=== PATIENT | female | born 1980 ===

== ENCOUNTER 2018-06-20 16:49 | Inpatient (IN) | payer MEDICAID ==
[2018-06-20 16:49] VITALS: BMI 34.0
[2018-06-20] MEDS ORDERED: Sodium Chloride 0.9% 1,000 ML IV STA (17:44)
[2018-06-20 18:11] LABS: BASO # 0.1 K/uL (0.0-0.2); BASO % 0.4 % (0.0-2.0); EOS # 0.3 K/uL (0.0-0.7); EOS % 1.5 % (0.0-4.0); MEAN CORPUSCULAR HEMOGLOBIN 36.2 pg (27.0-31.0); MEAN CORPUSCULAR HGB CONC 30.9 g/dL (33.0-37.0); MONO # 0.9 K/uL (0.0-0.8); MONO % 5.4 % (0.0-10.0); NEUT # 12.5 K/uL (1.8-7.0); NEUT % 74.7 % (50.0-75.0); NRBC % 1.7 % (0.0-0.0); RBC 1.33 Mil/uL (3.80-5.20); RED CELL DISTRIBUTION WIDTH 30.4 % (11.5-14.5); WHITE BLOOD COUNT 16.8 K/uL (4.8-10.8)
[2018-06-20 18:16] LABS: HEMOGLOBIN 4.8 g/dL (12.0-16.0)
[2018-06-20 18:22] LABS: INR 1.2; PROTHROMBIN TIME 13.6 Seconds (9.8-13.1)
[2018-06-20 18:25] LABS: PARTIAL THROMBOPLASTIN TIME 25.9 Seconds (25.6-37.1)
[2018-06-20 18:26] LABS: ALBUMIN 4.1 g/dL (3.5-5.0); ALT/SGPT 52 U/L (9-52); AST/SGOT 43 U/L (14-36); BLOOD UREA NITROGEN 9 mg/dl (7-17); CALCIUM 8.6 mg/dL (8.4-10.2); GFR NON-AFRICAN AMERICAN > 60
[2018-06-20] MEDS ORDERED: MethylPREDNISolone 40 mg Vial ONE (18:33)
--- NOTE | 2018-06-20 19:29 | ED PDOC ---
HPI: General Adult Time Seen by Provider: 06/20/18 17:43 Chief Complaint (Nursing): Abnormal Labs Chief Complaint (Provider): sent from PMD History Per: Patient History/Exam Limitations: no limitations Recently: Treated By A Physician Additional Complaint(s): 37yo female presents from PMD found have profound anemia outpatient. States having weakness and exertional dyspnea for several weeks, had menses about 3 weeks ago, last approx one week, denies melena, blood per rectum or vomiting. Has hx blood disorder, doesnt remember name, but required splenectomy in 2013, sees Dr Lisa Queen and Dr Sigala. Past Medical History Reviewed: Historical Data, Nursing Documentation, Vital Signs Vital Signs: Last Vital Signs Temp 98.4 F 06/20/18 17:06 Pulse 112 H 06/20/18 17:06 Resp 16 06/20/18 17:06 BP 94/59 L 06/20/18 17:06 Pulse Ox 100 06/20/18 17:06 - Medical History PMH: Asthma, Hyperthyroidism Denies: Alzheimer's Disease, Anemia, Anxiety, Arthritis, Atrial Fibrillation, Bipolar Disorder, Bronchitis, CAD, Cardia Arrhythmia, CHF, COPD, Crohn's Disease, Dementia, Depression, Diverticulitis, Emphysema, Fractures, Gastritis, Gall Bladder Disease, HIV, HTN, Hypercholesterolemia, Hypothyroidism, Kidney Stones, Migraine, Mitral Valve Prolapse, Multiple Sclerosis, Osteoporosis, Pancreatitis, Paranoia, Parkinson's Disease, Peripheral Edema, Pneumonia, Post Traumatic Stress Disorder, Pulmonary Embolism, Chronic Kidney Disease, Rheumatoid Arthritis, Schizophrenia, Seizures, Sickle Cell Disease, Sexually Transmitted Disease, Sleep Apnea, TIA - Surgical History Surgical History: Denies: Appendectomy, CABG, Carotid Endarterectomy, Cholecystectomy, Coronary Stent, Pacemaker, Tonsillectomy - Family History Family History: States: Diabetes, Hypertension - Immunization History Hx Tetanus Toxoid Vaccination: No - Home Medications Home Medications: Ambulatory Orders Medication Instructions Recorded Gabapentin [Neurontin] 600 mg PO HS 06/20/18 Naproxen [Naprosyn] 500 mg PO DAILY 06/20/18 methIMAzole [Tapazole] 10 mg PO DAILY 06/20/18 - Allergies Allergies/Adverse Reactions: Allergies Allergy/AdvReac Type Severity Reaction Status Date / Time iodine Allergy SHORTNESS Verified 06/20/18 17:06 OF BREATH pneumococcal vaccine Allergy RASH Verified 06/20/18 17:06 Review of Systems ROS Statement: Except As Marked, All Systems Reviewed And Found Negative Constitutional: Negative for: Fever ENT: Negative for: Nose Discharge Cardiovascular: Positive for: Palpitations, Light Headedness. Negative for: Chest Pain Respiratory: Positive for: Shortness of Breath, SOB with Exertion. Negative for: Cough Gastrointestinal: Negative for: Abdominal Pain, Diarrhea, Hematochezia, Hematemesis Genitourinary Female: Positive for: Vaginal Bleeding. Negative for: Dysuria Musculoskeletal: Negative for: Neck Pain, Back Pain Neurological: Positive for: Headache, Dizziness. Negative for: Weakness, Numbness, Altered Mental Status Psych: Negative for: Anxiety Physical Exam - Reviewed Nursing Documentation Reviewed: Yes Vital Signs Reviewed: Yes - Physical Exam Appears: Positive for: Well, Non-toxic, No Acute Distress Head Exam: Positive for: ATRAUMATIC, NORMAL INSPECTION, NORMOCEPHALIC Skin: Positive for: Normal Color, Warm, Jaundice Eye Exam: Positive for: EOMI, PERRL, Scleral icterus ENT: Positive for: Normal ENT Inspection Neck: Positive for: Normal, Painless ROM Cardiovascular/Chest: Positive for: Tachycardia. Negative for: Irregularly Irregular Respiratory: Positive for: Normal Breath Sounds. Negative for: Decreased Breath Sounds Pulses-Radial (L): 2+ Pulses-Radial (R): 2+ Gastrointestinal/Abdominal: Positive for: Soft. Negative for: Tenderness Back: Positive for: Normal Inspection Extremity: Positive for: Normal ROM Neurologic/Psych: Positive for: Alert, Oriented. Negative for: Motor/Sensory Deficits - Laboratory Results Result Diagrams: 06/21/18 04:30 06/21/18 04:30 Urine POC: Negative Urine dip results: Negative for: Blood - ECG ECG: Positive for: Interpreted By Me ECG Rhythm: Positive for: Sinus Tachycardia O2 Sat by Pulse Oximetry: 100 Pulse Ox Interpretation: Normal - Critical Care Total Time (In Min): 45 Medical Decision Making Medical Decision Making: labs reviewed c/w significant hemolytic anemia and thrombocytopenia, hgb 4.8 w Plt 45, elev TBili 9.0, renal function normal, hematology Dr Lisa sommers, case discussed and she recommended solumedrol, tylenol and transfusion PRBC tonight. Admit C Puja covering Dr Callahan, mental status normal, BP adequate, mild resting tachycardia stable for tele at this time. Additional studies added on-retic count, LDH, haptoglobin, iron studies. Patient consented for PRBC transfusion, states has had prior transfusion and is aware of risks and benefits. Disposition - Clinical Impression Clinical Impression: Hemolytic anemia, Thrombocytopenia - Patient ED Disposition Is Patient to be Admitted: No Counseled Patient/Family Regarding: Studies Performed, Diagnosis - Disposition Disposition Time: 18:15 Condition: GUARDED - Pt Status Changed To: Hospital Disposition Of: Inpatient - Admit Certification Admit to Inpatient:: After my assessment, the patient will require hospitalization for at least two midnights. This is because of the severity of symptoms shown, intensity of services needed, and/or the medical risk in this patient being treated as an outpatient. - POA Present On Arrival: None
[2018-06-20 19:38] LABS: T4 10.1 ug/dl (5.5-11.0)
[2018-06-20 19:52] LABS: T3 1.11 nmol/L (1.49-2.60)
[2018-06-20] MEDS ORDERED: DiphenhydrAMINE 50 mg/ml Inj IVP STA (22:25)
[2018-06-20] MEDS ORDERED: Hydrocortisone- 100 MG in Sodium Chloride 0.9% 100 ML IV SCH (22:45)
[2018-06-21 05:29] LABS: BASO % 0.3 % (0.0-2.0); EOS % 0.1 % (0.0-4.0); LYMPH # 1.9 K/uL (1.0-4.3); LYMPH % 10.6 % (20.0-40.0); MEAN CORPUSCULAR HEMOGLOBIN 36.8 pg (27.0-31.0); MEAN CORPUSCULAR HGB CONC 31.2 g/dL (33.0-37.0); MEAN PLATELET VOLUME 15.1 fl (7.2-11.7); MONO # 0.6 K/uL (0.0-0.8); MONO % 3.3 % (0.0-10.0); NEUT # 15.1 K/uL (1.8-7.0); NEUT % 85.7 % (50.0-75.0); NRBC % 1.2 % (0.0-0.0); RBC 1.24 Mil/uL (3.80-5.20); RED CELL DISTRIBUTION WIDTH 31.3 % (11.5-14.5); WHITE BLOOD COUNT 17.6 K/uL (4.8-10.8)
[2018-06-21 05:40] LABS: HEMOGLOBIN 4.6 g/dL (12.0-16.0)
[2018-06-21 05:45] LABS: ALBUMIN 3.8 g/dL (3.5-5.0); ALT/SGPT 42 U/L (9-52); AST/SGOT 36 U/L (14-36); BLOOD UREA NITROGEN 10 mg/dl (7-17); CALCIUM 8.6 mg/dL (8.4-10.2); GFR NON-AFRICAN AMERICAN > 60; HDL CHOLESTEROL 40 MG/DL (30-70)
[2018-06-21 05:56] LABS: LDL CHOLESTEROL 67 mg/dL (0-129)
[2018-06-21 06:01] LABS: T4 9.63 ug/dl (5.5-11.0)
--- NOTE | 2018-06-21 06:13 | CON ---
DATE: 06/21/2018 HISTORY OF PRESENT ILLNESS: This is a 37-year-old female very well known to us with Graves' disease with hyperthyroidism and has been euthyroid, on medical therapy and presents to her primary physician's office with generalized body weakness and increasing bouts of shortness of breath on exertion and was found to have profound anemia and admitted thereof for further workup and management. PAST MEDICAL HISTORY: History of Graves' disease with hyperthyroidism, but that has been controlled optimally on medical therapy with Tapazole given as 10 mg b.i.d. as ordered, history of bronchial asthma, significant history of idiopathic thrombocytopenic purpura or ITP in 2013 and underwent a splenectomy at that time and has been followed since then by Dr. Scottie Queen. FAMILY HISTORY: Positive for hypertension and heart disease. No known thyroid dysfunction. SOCIAL HISTORY: The patient has supportive family. No known substance use. REVIEW OF SYSTEMS: Admits to progressive bouts of dizziness and lightheadedness, worse on the day of admission with generalized body weakness and suboptimal energy level. Also admits to bifrontal headaches, but no visual changes otherwise. No chest pain, but admits to progressive shortness of breath initially on exertion and then at rest. Also admits to episodic nausea, dyspepsia and vague upper abdominal pain. No recent alterations of bowel and urinary patterns. No melena or hematochezia is noted. Her menstrual cycles have been extremely heavy with menorrhagia lasting a week to 10 days every cycle as noted. PHYSICAL EXAMINATION: GENERAL: This is an overweight female in no apparent distress. VITAL SIGNS: Blood pressure of 100/70, pulse of 110 beats per minute regular, temperature 98, respirations 20, height is 5 feet 6 inches, weight is 214 pounds. HEENT: Head normocephalic. Eyes icteric with pale conjunctivae. Funduscopy is not possible at this time. Ears, nose and throat otherwise normal. NECK: Supple. Moderate nodular thyromegaly which is firm and nontender with no thyroid bruits or any cervical adenopathy noted. CARDIOPULMONARY: Some adynamic precordium. S1, S2 is rapid and regular. LUNGS: Clear to auscultation. ABDOMEN: Obese, soft with positive bowel sounds. EXTREMITIES: No peripheral edema. Pulses are +2 bilaterally. LABORATORY DATA: WBC 16.8, hemoglobin 4.8 g, hematocrit 15, MCV 117, platelets 45,000 and a repeat count is 23.3. Chemistry showed a BUN of 9, sodium 136, potassium 3.7, chloride 106, CO2 of 21, glucose 100 and creatinine 0.5. Her LDH is 1238. Thyroxine level is 10.1 with a total T3 of 1.11 and a TSH of 0.45. ASSESSMENT: This is a 37-year-old female with Graves' disease with underlying toxic multinodular goiter, but has been euthyroid both clinically and biochemically, on the outpatient, on Tapazole medications as given and now presents here with marked anemia and significant menorrhagia on the background of a previous idiopathic thrombocytopenic purpura and splenectomy as noted thereof. However biochemically her thyroid indices at this time show the presence of subclinical hyperthyroidism as noted thereof. PLAN OF MANAGEMENT: We will titrate and increase her medical therapy with thiourea with Tapazole to be given at a higher dose of 10 mg b.i.d. as ordered. We will obtain a thyroid stimulating immunoglobulin and thyroid peroxidase antibody to confirm and/or indicate the presence of underlying thyroid autoimmunity. We will obtain serial chemistries and supplement accordingly as needed. We will concur with the hematology evaluation as ordered. We will also obtain a thyroid ultrasound to confirm the thyroid lobe dimensions as noted. We will follow up. Taisha Sigala MD
[2018-06-21] MEDS: Naproxen 500 MG TAB PO SCH (10:41)
--- NOTE | 2018-06-21 10:45 | CP.PCM.CON ---
History of Present Illness - History of Present Illness History of Present Illness: This is a very pleasant young lady who is known to me. I first saw her in 2013 when she was admitted for severe thrombocytopenia. I did a bone marrow test and the only finding was a large number of megakaryocytes. She was started on pr ednisone without response, then IVGG withpout a response, then rituxan without a response. She underwent a embolisbation of the splenic vein since the splenectomy was too risky. Her pletelet count stopped dropping, but did not go up. She was given 2 dosed of Nplate and her platelets increased to 236K . she was discharged and was supposed to see me in the office but did not come. According to her her cbc was normal after that, @-3 weeks ago she was in my office because her primary physician had found her to have a high ferritin.I had sent her for tests but she had a very period,which lasted for about 7-8 days and when the doctor saw her in the office thehgb was only 6.8gms. She was sent to the ER where her hgb was only 4.8gms. Her retic count is 23%, ferritin is normal, ldh is markedly raised. A haptoglobin was sent, but result not available yet. Now that her period is over the bleeding has stopped. No ecchymosis or petechii. PH; hyperthyroidism for which she is on methimazol. gabapentin and naproxane for knee pains. Past Patient History - Past Medical History & Family History Past Medical History?: Yes - Past Social History Smoking Status: Former Smoker - CARDIAC Hx Atrial Fibrillation: No Hx Cardia Arrhythmia: No Hx Congestive Heart Failure: No Hx Hypercholesterolemia: No Hx Hypertension: No Hx Mitral Valve Prolapse: No Hx Pacemaker: No Hx Peripheral Edema: No - PULMONARY Hx Asthma: Yes Hx Bronchitis: No Hx Chronic Obstructive Pulmonary Disease (COPD): No Hx Emphysema: No Hx Pneumonia: No Hx Pulmonary Embolism: No Hx Sleep Apnea: No - NEUROLOGICAL Hx Alzheimer's Disease: No Hx Dementia: No Hx Migraine: No Hx Multiple Sclerosis: No Hx Parkinson's Disease: No Hx Seizures: No Hx Transient Ischemic Attacks (TIA): No - HEENT Hx HEENT Problems: No - RENAL Hx Chronic Kidney Disease: No Hx Kidney Stones: No - ENDOCRINE/METABOLIC Hx Hyperthyroidism: Yes Hx Hypothyroidism: No - HEMATOLOGICAL/ONCOLOGICAL Hx Anemia: No Hx Human Immunodeficiency Virus (HIV): No Hx Sickle Cell Disease: No - INTEGUMENTARY Hx Dermatological Problems: No - MUSCULOSKELETAL/RHEUMATOLOGICAL Hx Arthritis: No Hx Fractures: No Hx Osteoporosis: No Hx Rheumatoid Arthritis: No - GASTROINTESTINAL Hx Crohn's Disease: No Hx Diverticulitis: No Hx Gall Bladder Disease: No Hx Gastritis: No Hx Pancreatitis: No - GENITOURINARY/GYNECOLOGICAL Hx Sexually Transmitted Disorders: No - PSYCHIATRIC Hx Anxiety: No Hx Bipolar Disorder: No Hx Depression: No Hx Paranoia: No Hx Post Traumatic Stress Disorder: No Hx Schizophrenia: No - SURGICAL HISTORY Hx Appendectomy: No Hx Carotid Endarterectomy: No Hx Cholecystectomy: No Hx Coronary Artery Bypass Graft: No Hx Coronary Stent: No Hx Tonsillectomy: No - ANESTHESIA Hx Anesthesia: No Hx Anesthesia Reactions: No Hx Malignant Hyperthermia: No Meds Allergies/Adverse Reactions: Allergies Allergy/AdvReac Type Severity Reaction Status Date / Time iodine Allergy SHORTNESS Verified 06/20/18 17:06 OF BREATH pneumococcal vaccine Allergy RASH Verified 06/20/18 17:06 - Medications Medications: Current Medications Gabapentin (Neurontin) 600 mg PO [facility] Last Admin: 06/20/18 23:57 Dose: 600 mg Hydrocortisone Sodium Succinate (Solu-Cortef) 100 mg IV Q6H [facility] Last Admin: 06/21/18 05:04 Dose: 100 mg Methimazole (Tapazole) 10 mg PO BID [facility] Last Admin: 06/21/18 08:54 Dose: 10 mg Naproxen (Naproxen) 500 mg PO DAILY [facility] Physical Exam - Additional Findings Additional findings: Physical exam; Alert,well oriented in no acute distress neck; supple, no adenopathy Chest; Clear,no rales or rhonchi heart; RSR,no murmur Abdomen; Soft,no mass no hepatomegaly Results - Vital Signs Recent Vital Signs: Last Vital Signs Temp 98.2 F 06/21/18 09:00 Pulse 103 H 06/21/18 09:00 Resp 18 06/21/18 09:00 BP 100/67 06/21/18 09:00 Pulse Ox 100 06/21/18 10:21 - Labs Result Diagrams: 06/21/18 04:30 06/21/18 04:30 Labs: Laboratory Results - last 24 hr 06/20/18 06/20/18 06/20/18 18:00 18:00 18:00 WBC 16.8 H RBC 1.33 L Hgb 4.8 L* Hct 15.6 L MCV 117.0 H MCH 36.2 H MCHC 30.9 L RDW 30.4 H Plt Count 45 L MPV 15.0 H Neut % (Auto) 74.7 Lymph % (Auto) 18.0 L [place] % (Auto) 5.4 Eos % (Auto) 1.5 Baso % (Auto) 0.4 Neut # (Auto) 12.5 H Lymph # (Auto) 3.0 [place] # (Auto) 0.9 H Eos # (Auto) 0.3 Baso # (Auto) 0.1 Retic Count PT INR APTT Sodium 136 Potassium 3.7 Chloride 106 Carbon Dioxide 21 L Anion Gap 13 BUN 9 Creatinine 0.5 L Est GFR ( Amer) > 60 Est GFR (Non-Af Amer) > 60 Random Glucose 100 Calcium 8.6 Ferritin Total Bilirubin 9.0 H AST 43 H ALT 52 D Alkaline Phosphatase 70 Lactate Dehydrogenase Total Protein 8.1 Albumin 4.1 Globulin 4.0 H Albumin/Globulin Ratio 1.0 Triglycerides Cholesterol LDL Cholesterol Direct HDL Cholesterol Free T4 Thyroxine (T4) Total T3 TSH 3rd Generation Blood Type A POSITIVE Antibody Screen Positive PEDRITO, Poly Interpret Positive H Crossmatch See Detail BBK History Checked Patient has bt 06/20/18 06/20/18 06/20/18 18:00 19:00 19:00 WBC RBC Hgb Hct MCV MCH MCHC RDW Plt Count MPV Neut % (Auto) Lymph % (Auto) [place] % (Auto) Eos % (Auto) Baso % (Auto) Neut # (Auto) Lymph # (Auto) [place] # (Auto) Eos # (Auto) Baso # (Auto) Retic Count 23.3 H PT 13.6 H INR 1.2 APTT 25.9 Sodium Potassium Chloride Carbon Dioxide Anion Gap BUN Creatinine Est GFR ( Amer) Est GFR (Non-Af Amer) Random Glucose Calcium Ferritin 429.0 H Total Bilirubin AST ALT Alkaline Phosphatase Lactate Dehydrogenase 1238 H Total Protein Albumin Globulin Albumin/Globulin Ratio Triglycerides Cholesterol LDL Cholesterol Direct HDL Cholesterol Free T4 Thyroxine (T4) 10.1 Total T3 1.11 L TSH 3rd Generation 0.45 L Blood Type Antibody Screen PEDRITO, Poly Interpret Crossmatch BBK History Checked 06/21/18 06/21/1806/21/18 04:30 04:30 04:30 WBC 17.6 H RBC 1.24 L Hgb 4.6 L* Hct 14.7 L MCV 118.0 H MCH 36.8 H MCHC 31.2 L RDW 31.3 H Plt Count 43 L MPV 15.1 H Neut % (Auto) 85.7 H Lymph % (Auto) 10.6 L [place] % (Auto) 3.3 Eos % (Auto) 0.1 Baso % (Auto) 0.3 Neut # (Auto) 15.1 H Lymph # (Auto) 1.9 [place] # (Auto) 0.6 Eos # (Auto) 0.0 Baso # (Auto) 0.0 Retic Count PT INR APTT Sodium 140 Potassium 4.0 Chloride 109 H Carbon Dioxide 23 Anion Gap 12 BUN 10 Creatinine 0.5 L Est GFR ( Amer) > 60 Est GFR (Non-Af Amer) > 60 Random Glucose 141 H Calcium 8.6 Ferritin Total Bilirubin 5.1 H AST 36 ALT 42 Alkaline Phosphatase 63 Lactate Dehydrogenase Total Protein 7.6 Albumin 3.8 Globulin 3.8 Albumin/Globulin Ratio 1.0 Triglycerides 78 Cholesterol 140 LDL Cholesterol Direct 67 HDL Cholesterol 40 Free T4 1.35 Thyroxine (T4) 9.63 Total T3 TSH 3rd Generation 0.14 L Blood Type Antibody Screen PEDRITO, Poly Interpret Crossmatch BBK History Checked Assessment & Plan - Assessment and Plan (Free Text) Assessment: impression: Immune thrombocytopenia and hemolytic anemia Plan: Plan; There was no blood available that did not have antibodies against her RBC s, .Have started her on hydrocortisone q 6hrs and hopefully it will hold her until blood is available. - Date & Time Date: 06/21/18 Time: 11:00
[2018-06-21 18:07] LABS: BASO % 0.2 % (0.0-2.0); EOS % 0.1 % (0.0-4.0); MEAN CORPUSCULAR HEMOGLOBIN 36.2 pg (27.0-31.0); MEAN CORPUSCULAR HGB CONC 29.9 g/dL (33.0-37.0); MEAN PLATELET VOLUME 15.2 fl (7.2-11.7); MONO # 0.9 K/uL (0.0-0.8); MONO % 3.7 % (0.0-10.0); NEUT # 19.3 K/uL (1.8-7.0); NRBC % 0.2 % (0.0-0.0); RBC 1.24 Mil/uL (3.80-5.20); RED CELL DISTRIBUTION WIDTH 32.9 % (11.5-14.5)
[2018-06-21 18:14] LABS: HEMOGLOBIN 4.5 g/dL (12.0-16.0)
[2018-06-21 18:16] LABS: WHITE BLOOD COUNT 23.2 K/uL (4.8-10.8)
--- NOTE | 2018-06-21 18:26 | PN ---
DATE: 06/21/2018 ENDOCRINOLOGY FOLLOWUP NOTE LOCATION: In room 408. SUBJECTIVE: This is a 37-year-old female presenting with marked anemia and associated constitutional symptoms of generalized body weakness, fatigue, and supervening shortness of breath, and was found to have a hemoglobin initially of 4 g as noted. She has since then received packed red cell transfusions as given. She also remains clinically and biochemically slightly hyperthyroxinemic at this time. LABORATORY DATA: Her latest chemistry showed a BUN of 10, sodium 140, potassium 4, chloride 109, CO2 of 23, glucose 141, and creatinine 0.5. Her thyroid studies showed a T4 of 9.63 with a TSH of 0.14 and a free T4 of 1.35. ASSESSMENT: This is a 37-year-old female with subclinical hyperthyroidism with known history of autoimmune thyroiditis, previously on medical therapy for hyperthyroidism, but has remained clinically and biochemically euthyroid on the outpatient on the aforementioned therapy. However, with the intercurrent stressors at this time with marked anemia, would expect a temporary biochemical relapse of the thyroid condition as noted. PLAN OF MANAGEMENT: We will modify and titrate her Tapazole to 10 mg p.o. b.i.d. after meals to start today as ordered. We will obtain serial chemistries and supplement accordingly as needed. We will obtain serial thyroid studies and adjust her dose regimen accordingly. We will obtain a thyroid stimulating immunoglobulin and thyroid peroxidase antibody, which will confirm and/or indicate the presence of underlying thyroid autoimmunity. We will follow. Taisha Sigala MD
--- NOTE | 2018-06-21 19:46 | CP.PCM.HP ---
History of Present Illness - History of Present Illness History of Present Illness: pt admitted for hemolytic anemia and itp. has h/o same. v harrison is pts heme/onc. all bw and consullts appriciated dr chou on case fo elev cortisol, hyperthyroidism. pt has yet to receive blood transfusion as per blood bank pt has coating and positive antibodies to rbc. wiating for [facility] in [place], [place] to further analyze Present on Admission - Present on Admission Any Indicators Present on Admission: No Review of Systems - Constitutional Constitutional: As Per HPI, Fatigue - Integumentary Integumentary: As Per HPI Additional comments: pallor Past Patient History - Past Medical History & Family History Past Medical History?: Yes - Past Social History Smoking Status: Former Smoker - CARDIAC Hx Atrial Fibrillation: No Hx Cardia Arrhythmia: No Hx Congestive Heart Failure: No Hx Hypercholesterolemia: No Hx Hypertension: No Hx Mitral Valve Prolapse: No Hx Pacemaker: No Hx Peripheral Edema: No - PULMONARY Hx Asthma: Yes Hx Bronchitis: No Hx Chronic Obstructive Pulmonary Disease (COPD): No Hx Emphysema: No Hx Pneumonia: No Hx Pulmonary Embolism: No Hx Sleep Apnea: No - NEUROLOGICAL Hx Alzheimer's Disease: No Hx Dementia: No Hx Migraine: No Hx Multiple Sclerosis: No Hx Parkinson's Disease: No Hx Seizures: No Hx Transient Ischemic Attacks (TIA): No - HEENT Hx HEENT Problems: No - RENAL Hx Chronic Kidney Disease: No Hx Kidney Stones: No - ENDOCRINE/METABOLIC Hx Hyperthyroidism: Yes Hx Hypothyroidism: No - HEMATOLOGICAL/ONCOLOGICAL Hx Anemia: No Hx Human Immunodeficiency Virus (HIV): No Hx Sickle Cell Disease: No - INTEGUMENTARY Hx Dermatological Problems: No - MUSCULOSKELETAL/RHEUMATOLOGICAL Hx Arthritis: No Hx Fractures: No Hx Osteoporosis: No Hx Rheumatoid Arthritis: No - GASTROINTESTINAL Hx Crohn's Disease: No Hx Diverticulitis: No Hx Gall Bladder Disease: No Hx Gastritis: No Hx Pancreatitis: No - GENITOURINARY/GYNECOLOGICAL Hx Sexually Transmitted Disorders: No - PSYCHIATRIC Hx Anxiety: No Hx Bipolar Disorder: No Hx Depression: No Hx Paranoia: No Hx Post Traumatic Stress Disorder: No Hx Schizophrenia: No - SURGICAL HISTORY Hx Appendectomy: No Hx Carotid Endarterectomy: No Hx Cholecystectomy: No Hx Coronary Artery Bypass Graft: No Hx Coronary Stent: No Hx Tonsillectomy: No - ANESTHESIA Hx Anesthesia: No Hx Anesthesia Reactions: No Hx Malignant Hyperthermia: No Meds Allergies/Adverse Reactions: Allergies Allergy/AdvReac Type Severity Reaction Status Date / Time iodine Allergy SHORTNESS Verified 06/20/18 17:06 OF BREATH pneumococcal vaccine Allergy RASH Verified 06/20/18 17:06 Physical Exam - Constitutional Appears: Well, Non-toxic, No Acute Distress Additional comments: pale - Head Exam Head Exam: ATRAUMATIC, NORMAL INSPECTION, NORMOCEPHALIC - Eye Exam Eye Exam: EOMI, Normal appearance, PERRL Pupil Exam: NORMAL ACCOMODATION, PERRL - ENT Exam ENT Exam: Mucous Membranes Moist, Normal Exam - Neck Exam Neck exam: Positive for: Normal Inspection - Respiratory Exam Respiratory Exam: Clear to Auscultation Bilateral, NORMAL BREATHING PATTERN - Cardiovascular Exam Cardiovascular Exam: REGULAR RHYTHM, RRR, +S1, +S2 - GI/Abdominal Exam GI & Abdominal Exam: Normal Bowel Sounds, Soft. absent: Tenderness - Extremities Exam Extremities exam: Positive for: full ROM, normal capillary refill, normal inspection, pedal pulses present - Back Exam Back exam: NORMAL INSPECTION - Neurological Exam Neurological exam: Alert, CN II-XII Intact, Normal Gait, Oriented x3, Reflexes Normal - Psychiatric Exam Psychiatric exam: Normal Affect, Normal Mood - Skin Skin Exam: Dry, Intact, Normal Color, Pallor, Warm Results - Vital Signs Recent Vital Signs: Last Vital Signs Temp 98.6 F 06/21/18 17:00 Pulse 109 H 06/21/18 17:00 Resp 16 06/21/18 17:00 BP 95/61 L 06/21/18 17:00 Pulse Ox 96 06/21/18 17:00 - Labs Result Diagrams: 06/21/18 17:55 06/21/18 04:30 Labs: Laboratory Results - last 24 hr 06/20/18 06/20/18 06/20/18 18:00 19:00 19:00 WBC RBC Hgb Hct MCV MCH MCHC RDW Plt Count MPV Neut % (Auto) Lymph % (Auto) [place] % (Auto) Eos % (Auto) Baso % (Auto) Neut # (Auto) Lymph # (Auto) [place] # (Auto) Eos # (Auto) Baso # (Auto) Haptoglobin < 20.0 L Sodium Potassium Chloride Carbon Dioxide Anion Gap BUN Creatinine Est GFR ( Amer) Est GFR (Non-Af Amer) Random Glucose Calcium Ferritin 429.0 H Total Bilirubin AST ALT Alkaline Phosphatase Total Protein Albumin Globulin Albumin/Globulin Ratio Triglycerides Cholesterol LDL Cholesterol Direct HDL Cholesterol Free T4 Thyroxine (T4) Total T3 1.11 L TSH 3rd Generation 0.45 L Cortisol AM Sample Blood Type A POSITIVE Antibody Screen Positive PEDRITO, Poly Interpret Positive H Crossmatch See Detail BBK History Checked Patient has bt 06/21/18 06/21/18 06/21/18 04:30 04:30 04:30 WBC 17.6 H RBC 1.24 L Hgb 4.6 L* Hct 14.7 L MCV 118.0 H MCH 36.8 H MCHC 31.2 L RDW 31.3 H Plt Count 43 L MPV 15.1 H Neut % (Auto) 85.7 H Lymph % (Auto) 10.6 L [place] % (Auto) 3.3 Eos % (Auto) 0.1 Baso % (Auto) 0.3 Neut # (Auto) 15.1 H Lymph # (Auto) 1.9 [place] # (Auto) 0.6 Eos # (Auto) 0.0 Baso # (Auto) 0.0 Haptoglobin Sodium 140 Potassium 4.0 Chloride 109 H Carbon Dioxide 23 Anion Gap 12 BUN 10 Creatinine 0.5 L Est GFR ( Amer) > 60 Est GFR (Non-Af Amer) > 60 Random Glucose 141 H Calcium 8.6 Ferritin Total Bilirubin 5.1 H AST 36 ALT 42 Alkaline Phosphatase 63 Total Protein 7.6 Albumin 3.8 Globulin 3.8 Albumin/Globulin Ratio 1.0 Triglycerides 78 Cholesterol 140 LDL Cholesterol Direct 67 HDL Cholesterol 40 Free T4 Thyroxine (T4) 9.63 Total T3 TSH 3rd Generation 0.14 L Cortisol AM Sample 27.5 H Blood Type Antibody Screen PEDRITO, Poly Interpret Crossmatch BBK History Checked 06/21/18 06/21/18 04:30 17:55 WBC 23.2 H RBC 1.24 L Hgb 4.5 L* Hct 15.0 L MCV 121.0 H D MCH 36.2 H MCHC 29.9 L RDW 32.9 H Plt Count 52 L MPV 15.2 H Neut % (Auto) 83.0 H Lymph % (Auto) 13.0 L [place] % (Auto) 3.7 Eos % (Auto) 0.1 Baso % (Auto) 0.2 Neut # (Auto) 19.3 H Lymph # (Auto) 3.0 [place] # (Auto) 0.9 H Eos # (Auto) 0.0 Baso # (Auto) 0.0 Haptoglobin Sodium Potassium Chloride Carbon Dioxide Anion Gap BUN Creatinine Est GFR ( Amer) Est GFR (Non-Af Amer) Random Glucose Calcium Ferritin Total Bilirubin AST ALT Alkaline Phosphatase Total Protein Albumin Globulin Albumin/Globulin Ratio Triglycerides Cholesterol LDL Cholesterol Direct HDL Cholesterol Free T4 1.35 Thyroxine (T4) Total T3 TSH 3rd Generation Cortisol AM Sample Blood Type Antibody Screen PEDRITO, Poly Interpret Crossmatch BBK History Checked Assessment & Plan (1) DVT prophylaxis Assessment and Plan: scd and aehose hold anticoag r/t anemia, itp Status: Acute (2) Hemolytic anemia Assessment and Plan: heme/onc pending blood transfusion, waiting for cross match at [facility] blood bank hydrocortisone Status: Acute (3) Thrombocytopenia Assessment and Plan: monitor plt heme/onc Status: Acute (4) Hyperthyroidism Assessment and Plan: methimazole, endo Status: Acute Decision To Admit - Pt Status Changed To: Hospital Disposition Of: Inpatient - Admit Certification Admit to Inpatient:: After my assessment, the patient will require hospitalization for at least two midnights. This is because of the severity of symptoms shown, intensity of services needed, and/or the medical risk in this patient being treated as an outpatient. - . Bed Request Type: Telemetry Admitting Physician: Shelly Callahan
--- NOTE | 2018-06-21 19:59 | CARD ---
APPROVED REPORT Date of service: 06/20/2018 EKG Measurement Heart [id number] <Conclusion> Sinus tachycardia Otherwise normal ECG
[2018-06-22] MEDS ORDERED: DiphenhydrAMINE 50 mg/ml Inj IVP STA (00:35)
--- NOTE | 2018-06-22 00:52 | CP.PCM.PCO ---
Assessment/Plan - Assessment and Plan (Free Text) Assessment: MD called for hives in patient. Pt seen and examined by bedside this AM. Sates that for the past few days she has had on/off hive eruption all over her body. Hives are associated with intense itching of the affected skin. Episodes are singular, not associated with foods, medications or new clothes. Hives are found all over the body, the hives and itching usually resolves at home after PO Zyrtec. No new meds in hospital, no new foods introduced at the hospital Gen: NAD, speaking in full sentences, normal breathing H: S1S2 L: clear breath sounds Skin: hives noted in groups throughout the upper and lower ext, including the chest and abdomen. Some excoriation makes noted on skin. No facial edema or rash noted neuro: AAOx3 A/P: hives with purities of unknown origin. -IV Benadryl 1 x -Hydrocortisone cream for itching at most intense sites
[2018-06-22 08:12] LABS: BASO % 0.1 % (0.0-2.0); LYMPH # 3.6 K/uL (1.0-4.3); LYMPH % 13.6 % (20.0-40.0); MEAN CELL VOLUME 124.9 fl (81.0-99.0); MEAN CORPUSCULAR HEMOGLOBIN 36.6 pg (27.0-31.0); MEAN CORPUSCULAR HGB CONC 29.3 g/dL (33.0-37.0); MEAN PLATELET VOLUME 11.5 fl (7.2-11.7); MONO # 1.2 K/uL (0.0-0.8); MONO % 4.7 % (0.0-10.0); NEUT # 21.6 K/uL (1.8-7.0); NEUT % 81.6 % (50.0-75.0); NRBC % 1.6 % (0.0-0.0); RBC 1.22 Mil/uL (3.80-5.20); RED CELL DISTRIBUTION WIDTH 32.9 % (11.5-14.5); WHITE BLOOD COUNT 26.5 K/uL (4.8-10.8)
[2018-06-22 08:18] LABS: ALB/GLOB RATIO 0.9 (1.0-2.1); ALBUMIN 3.5 g/dL (3.5-5.0); ALT/SGPT 39 U/L (9-52); AST/SGOT 25 U/L (14-36); BLOOD UREA NITROGEN 12 mg/dl (7-17); CALCIUM 8.5 mg/dL (8.4-10.2); GFR NON-AFRICAN AMERICAN > 60
[2018-06-22 08:35] LABS: HEMOGLOBIN 4.5 g/dL (12.0-16.0)
[2018-06-22] MEDS ORDERED: methylPREDNISolone 40 MG in Sodium Chloride 0.9% 50 ML IVPB STA (09:44)
[2018-06-22] MEDS: Naproxen 500 MG TAB PO SCH (09:45)
--- NOTE | 2018-06-22 09:52 | CP.PCM.PN ---
Subjective - Date & Time of Evaluation Date of Evaluation: 06/22/18 Time of Evaluation: 09:47 - Subjective Subjective: Pt is alert,awake, in no acute distress her vital signs are stable except for a little tachycardia. The blood center has finally identified the antibodies, and and according to the blood bank,will be available within 2 hrs. I will also start IVGG 35 mg today and continue the hydrocortisone. The Hgb is still 4.5 gms and has not gone down since yesterday. I hope she is starting to respond to the hydrocortisone. Objective - Vital Signs/Intake and Output Vital Signs (last 24 hours): Temp Pulse Resp BP Pulse Ox 98.4 F 108 H 20 92/60 L 95 06/22/18 08:00 06/22/18 08:00 06/22/18 08:00 06/22/18 08:00 06/22/18 08:00 - Medications Medications: Current Medications Acetaminophen (Tylenol 325mg Tab) 650 mg PO STAT STA Stop: 06/22/18 09:46 Diphenhydramine HCl (Benadryl) 25 mg IVP STAT STA Stop: 06/22/18 09:44 Gabapentin (Neurontin) 600 mg PO HS [facility] Last Admin: 06/21/18 21:25 Dose: 600 mg Hydrocortisone Sodium Succinate (Solu-Cortef) 100 mg IV Q6H [facility] Last Admin: 06/22/18 04:30 Dose: 100 mg Methylprednisolone 40 mg/ (Sodium Chloride) 50 mls @ 100 mls/hr IVPB STAT STA Stop: 06/22/18 10:13 Methimazole (Tapazole) 10 mg PO BID [facility] Last Admin: 06/21/18 16:48 Dose: 10 mg Naproxen (Naproxen) 500 mg PO DAILY [facility] Last Admin: 06/21/18 10:41 Dose: 500 mg - Labs Labs: 06/22/18 06:00 06/22/18 06:00 PT 13.6 Seconds (9.8-13.1) H 06/20/18 18:00 INR 1.2 06/20/18 18:00 APTT 25.9 Seconds (25.6-37.1) 06/20/18 18:00
[2018-06-22] MEDS ORDERED: MethylPREDNISolone 40 mg Vial IVP ONE (10:00)
[2018-06-22] MEDS ORDERED: DiphenhydrAMINE 50 mg/ml Inj IVP ONE (10:00)
[2018-06-22] MEDS ORDERED: IMMUNE GLOBULIN 50 MG/ML IV ONE (12:00)
--- NOTE | 2018-06-22 19:45 | PN ---
DATE: 06/22/2018 ENDOCRINOLOGY FOLLOWUP NOTE LOCATION: Room #408. SUBJECTIVE: This is a 37-year-old female with marked anemia and the repeat hemoglobin today is still very low at 4.5 gm/dl and has been given IV gammaglobulin today as ordered by the wheelchair van operator first responder. She has also ongoing IV steroids as given. She is being followed closely for metabolic management of known history of hyperthyroidism as noted thereof. Her latest chemistries showed a BUN of 12, sodium 141, potassium 4.1, chloride 107, CO2 of 25, glucose 123 and creatinine 0.5. Her LDH is 1238 with ferritin level of 429. Her latest thyroid studies showed T4 of 9.63 with a TSH of 0.14 and a free T4 of 1.35 and a serum cortisol of 27.5 mcg/dl. ASSESSMENT: This is a 37-year-old female with known history of hyperthyroidism, presenting here with a biochemical relapse from the intercurrent physical stressors as noted thereof.. She has known history of Graves disease with hyperthyroidism and has remained clinically and biochemically euthyroid on the outpatient prior to this admission. PLAN OF MANAGEMENT: We will continue the Tapazole given as 10 mg b.i.d. after meals to start today as ordered. We will obtain serial chemistries and supplement accordingly needed. We will follow. We will obtain thyroid antibodies to include the thyroid stimulating immunoglobulin which will confirm and/or indicate the presence of underlying thyroid autoimmunity. We will follow up. Taisha Sigala MD
--- NOTE | 2018-06-22 20:06 | CP.PCM.PN ---
Subjective - Date & Time of Evaluation Date of Evaluation: 06/22/18 Time of Evaluation: 20:06 - Subjective Subjective: pt comfortable in bed, all labs and consults reviewed. pt in distress. no fcnvd. no transfusions as of yet as pt has pos ab screen and waiting for blood from central blood bank Objective - Vital Signs/Intake and Output Vital Signs (last 24 hours): Temp Pulse Resp BP Pulse Ox 97.7 F 92 H 16 104/68 98 06/22/18 19:48 06/22/18 19:48 06/22/18 19:48 06/22/18 19:48 06/22/18 19:48 - Medications Medications: Current Medications Acetaminophen (Tylenol 325mg Tab) 650 mg PO Q6 PRN PRN Reason: Pain, Mild (1-3) Last Admin: 06/22/18 17:46 Dose: 650 mg Gabapentin (Neurontin) 600 mg PO HS [facility] Last Admin: 06/21/18 21:25 Dose: 600 mg Hydrocortisone Sodium Succinate (Solu-Cortef) 100 mg IV Q6H [facility] Last Admin: 06/22/18 17:36 Dose: 100 mg Immune Globulin (Octagam 5%) 600 mls @ 200 mls/hr IV ONCE ONE Stop: 06/23/18 11:59 Methimazole (Tapazole) 10 mg PO BID [facility] Last Admin: 06/22/18 17:37 Dose: 10 mg Naproxen (Naproxen) 500 mg PO DAILY [facility] Last Admin: 06/22/18 09:45 Dose: 500 mg - Labs Labs: 06/22/18 06:00 06/22/18 06:00 PT 13.6 Seconds (9.8-13.1) H 06/20/18 18:00 INR 1.2 06/20/18 18:00 APTT 25.9 Seconds (25.6-37.1) 06/20/18 18:00 - Constitutional Appears: Well, Non-toxic, No Acute Distress - Head Exam Head Exam: ATRAUMATIC, NORMAL INSPECTION, NORMOCEPHALIC - Eye Exam Eye Exam: EOMI, Normal appearance, PERRL Pupil Exam: NORMAL ACCOMODATION, PERRL - ENT Exam ENT Exam: Mucous Membranes Moist, Normal Exam - Neck Exam Neck Exam: Full ROM, Normal Inspection. absent: Lymphadenopathy - Respiratory Exam Respiratory Exam: Clear to Ausculation Bilateral, NORMAL BREATHING PATTERN - Cardiovascular Exam Cardiovascular Exam: REGULAR RHYTHM, RRR, +S1, +S2. absent: Murmur - GI/Abdominal Exam GI & Abdominal Exam: Soft, Normal Bowel Sounds. absent: Tenderness - Extremities Exam Extremities Exam: Full ROM, Normal Capillary Refill, Normal Inspection. absent: Joint Swelling, Pedal Edema - Back Exam Back Exam: NORMAL INSPECTION - Neurological Exam Neurological Exam: Alert, Awake, CN II-XII Intact, Normal Gait, Oriented x3 - Psychiatric Exam Psychiatric exam: Normal Affect, Normal Mood - Skin Skin Exam: Dry, Intact, Normal Color, Warm Assessment and Plan - Assessment and Plan (Free Text) Assessment: (1) DVT prophylaxis Assessment & Plan: scd adn ae hose hold anticoag r/t hemolytic anemia Status: Acute (2) Hemolytic anemia Assessment & Plan: heme/onc penidng blood steroids Status: Acute (3) Hyperthyroidism Assessment & Plan: endo cont home meds Status: Acute (4) ITP (idiopathic thrombocytopenic purpura) Assessment & Plan: steroids monitor heme/onc Status: Acute
[2018-06-23] MEDS ORDERED: DiphenhydrAMINE 50 mg/ml Inj IVP STA (05:14)
[2018-06-23 06:57] LABS: BASO % 0.1 % (0.0-2.0); LYMPH # 4.3 K/uL (1.0-4.3); LYMPH % 17.7 % (20.0-40.0); MEAN CELL VOLUME 126.3 fl (81.0-99.0); MEAN CORPUSCULAR HEMOGLOBIN 37.5 pg (27.0-31.0); MEAN CORPUSCULAR HGB CONC 29.7 g/dL (33.0-37.0); MEAN PLATELET VOLUME 14.6 fl (7.2-11.7); MONO # 1.6 K/uL (0.0-0.8); MONO % 6.8 % (0.0-10.0); NEUT # 18.3 K/uL (1.8-7.0); NEUT % 75.4 % (50.0-75.0); NRBC % 4.8 % (0.0-0.0); RBC 1.24 Mil/uL (3.80-5.20); WHITE BLOOD COUNT 24.2 K/uL (4.8-10.8)
[2018-06-23 07:12] LABS: HEMOGLOBIN 4.6 g/dL (12.0-16.0)
[2018-06-23] MEDS ORDERED: Immune Globulin 50 MG/ML 600 ML IV ONE (09:00)
[2018-06-23] MEDS: Naproxen 500 MG TAB PO SCH (09:37)
--- NOTE | 2018-06-23 10:25 | CP.PCM.PN ---
Subjective - Date & Time of Evaluation Date of Evaluation: 06/23/18 Time of Evaluation: 10:21 - Subjective Subjective: Pt is afebrile, vital signs stable. Her HGB today is 4.6 gms, and platelets have gone up to 48K. She is totally asymptomatic. The blood center is having a hard time getting blood for her. I will give another dose of IVGG. Will hold the Naproxen , gabapentin and methimazol until the drug elution test is done. Objective - Vital Signs/Intake and Output Vital Signs (last 24 hours): Temp Pulse Resp BP Pulse Ox 98 F 97 H 20 99/64 L 98 06/23/18 08:11 06/23/18 08:11 06/23/18 08:11 06/23/18 08:11 06/23/18 08:11 - Medications Medications: Current Medications Acetaminophen (Tylenol 325mg Tab) 650 mg PO Q6 PRN PRN Reason: Pain, Mild (1-3) Last Admin: 06/22/18 17:46 Dose: 650 mg Diphenhydramine HCl (Benadryl) 25 mg PO ONCE ONE Stop: 06/23/18 10:31 Gabapentin (Neurontin) 600 mg PO HS [facility] Last Admin: 06/22/18 21:43 Dose: 600 mg Hydrocortisone Sodium Succinate (Solu-Cortef) 100 mg IV Q6H [facility] Last Admin: 06/23/18 04:53 Dose: 100 mg Immune Globulin (Octagam 5%) 600 mls @ 200 mls/hr IV ONCE ONE Stop: 06/23/18 11:59 Methylprednisolone 40 mg/ (Sodium Chloride) 50 mls @ 100 mls/hr IVPB [employer] ONE Stop: 06/24/18 10:59 Loratadine (Claritin) 10 mg PO BID [facility] Methimazole (Tapazole) 10 mg PO BID [facility] Last Admin: 06/23/18 09:36 Dose: 10 mg Naproxen (Naproxen) 500 mg PO DAILY [facility] Last Admin: 06/23/18 09:37 Dose: 500 mg - Labs Labs: 06/23/18 06:00 06/22/18 06:00 PT 13.6 Seconds (9.8-13.1) H 06/20/18 18:00 INR 1.2 06/20/18 18:00 APTT 25.9 Seconds (25.6-37.1) 06/20/18 18:00
[2018-06-23] MEDS ORDERED: DiphenhydrAMINE 12.5 mg/5 ml LIQ UD (5 ml) PO ONE (10:30)
[2018-06-23] MEDS ORDERED: MethylPREDNISolone 40 mg Vial IVP ONE (10:45)
--- NOTE | 2018-06-23 20:34 | PN ---
DATE: 06/23/2018 LOCATION: Room 408. SUBJECTIVE: This is a 37-year-old female with a recent admission for marked anemia, currently receiving IV gammaglobulin and also IV steroid therapy as given. She also remains clinically euthyroid with evidence biochemically of mild hyperthyroxinemia with the dose adjustments undertaken thereof. However, at this time, there is a concern that the medications she is on at this time may be interfering with her antibodies causing marked hemolytic anemia thereof. LABORATORY DATA: Her chemistry showed a BUN of 12, sodium 141, potassium 4.1, chloride 107, CO2 of 25, glucose 123 and creatinine 0.5. Her thyroid studies showed a T4 of 9.63 with a TSH of 0.14 and a free T4 of 1.35. PLAN OF MANAGEMENT: So at this time, we will concur with the plan to hold her medications for at least 3 days and observe her metabolic and clinical response, especially hematologically as noted thereof. We will obtain serial thyroid studies accordingly. We will hold the Tapazole given as 10 mg b.i.d. as ordered. We will follow. Taisha Sigala MD
--- NOTE | 2018-06-23 21:31 | CP.PCM.PN ---
Subjective - Date & Time of Evaluation Date of Evaluation: 06/23/18 Time of Evaluation: 21:31 - Subjective Subjective: pt remains as assess. no distress. vs noted. bw noted. consults appriciated. still pening blood from central bank in [place]. cont current plan incl iv ig cont to monitor cbc Objective - Vital Signs/Intake and Output Vital Signs (last 24 hours): Temp Pulse Resp BP Pulse Ox 98.4 F 101 H 16 95/60 L 99 06/23/18 19:57 06/23/18 19:57 06/23/18 19:57 06/23/18 19:57 06/23/18 19:57 - Medications Medications: Current Medications Acetaminophen (Tylenol 325mg Tab) 650 mg PO Q6 PRN PRN Reason: Pain, Mild (1-3) Last Admin: 06/22/18 17:46 Dose: 650 mg Gabapentin (Neurontin) 600 mg PO HS [facility] Last Admin: 06/22/18 21:43 Dose: 600 mg Hydrocortisone Sodium Succinate (Solu-Cortef) 100 mg IV Q6H [facility] Last Admin: 06/23/18 16:40 Dose: 100 mg Loratadine (Claritin) 10 mg PO DAILY [facility] Last Admin: 06/23/18 10:55 Dose: 10 mg Methimazole (Tapazole) 10 mg PO BID [facility] Last Admin: 06/23/18 09:36 Dose: 10 mg Naproxen (Naproxen) 500 mg PO DAILY [facility] Last Admin: 06/23/18 09:37 Dose: 500 mg - Labs Labs: 06/23/18 06:00 06/22/18 06:00 PT 13.6 Seconds (9.8-13.1) H 06/20/18 18:00 INR 1.2 06/20/18 18:00 APTT 25.9 Seconds (25.6-37.1) 06/20/18 18:00 - Constitutional Appears: Well, Non-toxic, No Acute Distress - Head Exam Head Exam: ATRAUMATIC, NORMAL INSPECTION, NORMOCEPHALIC - Eye Exam Eye Exam: EOMI, Normal appearance, PERRL Pupil Exam: NORMAL ACCOMODATION, PERRL - ENT Exam ENT Exam: Mucous Membranes Moist, Normal Exam - Neck Exam Neck Exam: Full ROM, Normal Inspection. absent: Lymphadenopathy - Respiratory Exam Respiratory Exam: Clear to Ausculation Bilateral, NORMAL BREATHING PATTERN - Cardiovascular Exam Cardiovascular Exam: REGULAR RHYTHM, RRR, +S1, +S2. absent: Murmur - GI/Abdominal Exam GI & Abdominal Exam: Soft, Normal Bowel Sounds. absent: Tenderness - Extremities Exam Extremities Exam: Full ROM, Normal Capillary Refill, Normal Inspection. absent: Joint Swelling, Pedal Edema - Back Exam Back Exam: NORMAL INSPECTION - Neurological Exam Neurological Exam: Alert, Awake, CN II-XII Intact, Normal Gait, Oriented x3 - Psychiatric Exam Psychiatric exam: Normal Affect, Normal Mood - Skin Skin Exam: Dry, Intact, Normal Color, Warm Assessment and Plan (1) DVT prophylaxis Assessment & Plan: scd adn ae hose hold anticoag r/t hemolytic anemia Status: Acute (2) Hemolytic anemia Assessment & Plan: heme/onc penidng blood steroids Status: Acute (3) Hyperthyroidism Assessment & Plan: endo cont home meds Status: Acute (4) ITP (idiopathic thrombocytopenic purpura) Assessment & Plan: steroids monitor heme/onc Status: Acute
[2018-06-24 05:33] LABS: BASO # 0.1 K/uL (0.0-0.2); BASO % 0.7 % (0.0-2.0); LYMPH # 2.7 K/uL (1.0-4.3); LYMPH % 15.9 % (20.0-40.0); MEAN CELL VOLUME 128.7 fl (81.0-99.0); MEAN CORPUSCULAR HEMOGLOBIN 38.1 pg (27.0-31.0); MEAN CORPUSCULAR HGB CONC 29.6 g/dL (33.0-37.0); MONO # 1.3 K/uL (0.0-0.8); MONO % 7.9 % (0.0-10.0); NEUT # 12.7 K/uL (1.8-7.0); NEUT % 75.5 % (50.0-75.0); NRBC % 5.7 % (0.0-0.0); RBC 1.34 Mil/uL (3.80-5.20); RED CELL DISTRIBUTION WIDTH 30.9 % (11.5-14.5); WHITE BLOOD COUNT 16.9 K/uL (4.8-10.8)
[2018-06-24 05:50] LABS: HEMOGLOBIN 5.1 g/dL (12.0-16.0)
[2018-06-24] MEDS ORDERED: MethylPREDNISolone 40 mg Vial IVP ONE (08:45)
[2018-06-24] MEDS ORDERED: methylPREDNISolone 40 MG in Sodium Chloride 0.9% 50 ML IVPB ONE ×2 (09:00→10:30)
--- NOTE | 2018-06-24 10:29 | CP.PCM.PN ---
Subjective - Date & Time of Evaluation Date of Evaluation: 06/24/18 Time of Evaluation: 10:28 - Subjective Subjective: pt doign well. nod istress. hgb 5.1 today and plt increasing. all consults appriciated. pt good color and good spirits. updated on all aspects of care blood is ready in blood bank Objective - Vital Signs/Intake and Output Vital Signs (last 24 hours): Temp Pulse Resp BP Pulse Ox 98.5 F 76 20 97/59 L 95 06/24/18 08:37 06/24/18 08:37 06/24/18 08:37 06/24/18 08:37 06/24/18 08:37 - Medications Medications: Current Medications Acetaminophen (Tylenol 325mg Tab) 650 mg PO Q6 PRN PRN Reason: Pain, Mild (1-3) Last Admin: 06/22/18 17:46 Dose: 650 mg Diphenhydramine HCl (Benadryl) 25 mg IVP [employer] ONE Stop: 06/24/18 12:01 Gabapentin (Neurontin) 600 mg PO HS [facility] Last Admin: 06/22/18 21:43 Dose: 600 mg Hydrocortisone Sodium Succinate (Solu-Cortef) 100 mg IV Q6H [facility] Last Admin: 06/24/18 09:48 Dose: 100 mg Hydroxyzine HCl (Atarax) 25 mg PO Q6 PRN PRN Reason: Itching / Pruritus Methimazole (Tapazole) 10 mg PO BID [facility] Last Admin: 06/23/18 09:36 Dose: 10 mg Naproxen (Naproxen) 500 mg PO DAILY [facility] Last Admin: 06/23/18 09:37 Dose: 500 mg - Labs Labs: 06/24/18 04:00 06/22/18 06:00 PT 13.6 Seconds (9.8-13.1) H 06/20/18 18:00 INR 1.2 06/20/18 18:00 APTT 25.9 Seconds (25.6-37.1) 06/20/18 18:00 - Constitutional Appears: Well, Non-toxic, No Acute Distress - Head Exam Head Exam: ATRAUMATIC, NORMAL INSPECTION, NORMOCEPHALIC - Eye Exam Eye Exam: EOMI, Normal appearance, PERRL Pupil Exam: NORMAL ACCOMODATION, PERRL - ENT Exam ENT Exam: Mucous Membranes Moist, Normal Exam - Neck Exam Neck Exam: Full ROM, Normal Inspection. absent: Lymphadenopathy - Respiratory Exam Respiratory Exam: Clear to Ausculation Bilateral, NORMAL BREATHING PATTERN - Cardiovascular Exam Cardiovascular Exam: REGULAR RHYTHM, RRR, +S1, +S2. absent: Murmur - GI/Abdominal Exam GI & Abdominal Exam: Soft, Normal Bowel Sounds. absent: Tenderness - Exam External exam: NORMAL EXTERNAL EXAM Bimanual exam: NORMAL BIMANUAL EXAM - Extremities Exam Extremities Exam: Full ROM, Normal Capillary Refill, Normal Inspection. absent: Joint Swelling, Pedal Edema - Back Exam Back Exam: NORMAL INSPECTION - Neurological Exam Neurological Exam: Alert, Awake, CN II-XII Intact, Normal Gait, Oriented x3 - Psychiatric Exam Psychiatric exam: Normal Affect, Normal Mood - Skin Skin Exam: Dry, Intact, Normal Color, Warm Assessment and Plan (1) DVT prophylaxis Assessment & Plan: scd and ae hose hold anticoag r/t anemia-hemolytic Status: Acute (2) Hemolytic anemia Assessment & Plan: heme/onc blood available now, will transfse as per heme/onc steroids ivig Status: Acute (3) Hyperthyroidism Assessment & Plan: endo cont home meds Status: Acute (4) ITP (idiopathic thrombocytopenic purpura) Assessment & Plan: heme/onc steroids Status: Acute
--- NOTE | 2018-06-24 11:10 | CP.PCM.PN ---
Subjective - Date & Time of Evaluation Date of Evaluation: 06/24/18 Time of Evaluation: 11:09 - Subjective Subjective: Pt is afebrile in no acute distress. No tachycardia. Today the hgb is 5.1gms and platelets are 68k. Octagam is back dated so we will have to continue with the steroids only. If her count drops again , will use rituximab. She is now going to be transfused with the least incompatible blood. Objective - Vital Signs/Intake and Output Vital Signs (last 24 hours): Temp Pulse Resp BP Pulse Ox 98.5 F 76 20 97/59 L 95 06/24/18 08:37 06/24/18 08:37 06/24/18 08:37 06/24/18 08:37 06/24/18 08:37 - Medications Medications: Current Medications Acetaminophen (Tylenol 325mg Tab) 650 mg PO Q6 PRN PRN Reason: Pain, Mild (1-3) Last Admin: 06/22/18 17:46 Dose: 650 mg Diphenhydramine HCl (Benadryl) 25 mg IVP [employer] Stop: 06/24/18 12:01 Gabapentin (Neurontin) 600 mg PO HS [facility] Last Admin: 06/22/18 21:43 Dose: 600 mg Hydrocortisone Sodium Succinate (Solu-Cortef) 100 mg IV Q6H [facility] Last Admin: 06/24/18 09:48 Dose: 100 mg Hydroxyzine HCl (Atarax) 25 mg PO Q6 PRN PRN Reason: Itching / Pruritus Methimazole (Tapazole) 10 mg PO BID [facility] Last Admin: 06/23/18 09:36 Dose: 10 mg Naproxen (Naproxen) 500 mg PO DAILY [facility] Last Admin: 06/23/18 09:37 Dose: 500 mg - Labs Labs: 06/24/18 04:00 06/22/18 06:00 PT 13.6 Seconds (9.8-13.1) H 06/20/18 18:00 INR 1.2 06/20/18 18:00 APTT 25.9 Seconds (25.6-37.1) 06/20/18 18:00
[2018-06-24] MEDS ORDERED: DiphenhydrAMINE 50 mg/ml Inj IVP ONE (12:00)
[2018-06-24 21:24] LABS: THYROGLOBULIN 1.3 ng/mL (2.8-40.9)
--- NOTE | 2018-06-25 01:18 | PN ---
DATE: 06/24/2018 LOCATION: Room 418, bed 1. SUBJECTIVE: This is a 37-year-old female with overt thyrotoxicosis, very well controlled on medical therapy, presenting here with marked hemolytic anemia, and is now undergoing hematologic workup and management, and is being followed closely also for metabolic management. She remains clinically euthyroid and biochemically has evidence of early hyperthyroxinemia as noted thereof. However, her thyroid medications have been withheld pending the completion of the hematologic workup and management as noted. LABORATORY DATA: Her latest thyroid study showed a T4 of 9.63 with a TSH of 0.14 and a free T4 of 1.35. Her latest chemistry showed a BUN of 12, sodium 141, potassium 4.1, chloride 107, CO2 25, glucose 123, and creatinine 0.5. PLAN OF MANAGEMENT: So at this time, we will hold off her medical therapy and resume the Tapazole given as 10 mg b.i.d. once Hematology has cleared her for the aforementioned. We will follow. Taisha Sigala MD
[2018-06-25 05:44] LABS: BASO % 0.2 % (0.0-2.0); HEMOGLOBIN 8.1 g/dL (12.0-16.0); LYMPH # 1.9 K/uL (1.0-4.3); LYMPH % 15.8 % (20.0-40.0); MEAN CELL VOLUME 114.2 fl (81.0-99.0); MEAN CORPUSCULAR HEMOGLOBIN 36.8 pg (27.0-31.0); MEAN CORPUSCULAR HGB CONC 32.2 g/dL (33.0-37.0); MEAN PLATELET VOLUME 14.2 fl (7.2-11.7); MONO # 1.2 K/uL (0.0-0.8); MONO % 9.5 % (0.0-10.0); NEUT % 74.5 % (50.0-75.0); NRBC % 7.1 % (0.0-0.0); RBC 2.2 Mil/uL (3.80-5.20); RED CELL DISTRIBUTION WIDTH 29.2 % (11.5-14.5); WHITE BLOOD COUNT 12.1 K/uL (4.8-10.8)
[2018-06-25 06:09] LABS: ALB/GLOB RATIO 0.8 (1.0-2.1); ALBUMIN 3.3 g/dL (3.5-5.0); ALT/SGPT 65 U/L (9-52); AST/SGOT 42 U/L (14-36); BLOOD UREA NITROGEN 16 mg/dl (7-17); CALCIUM 7.9 mg/dL (8.4-10.2); GFR NON-AFRICAN AMERICAN > 60
--- NOTE | 2018-06-25 10:14 | CP.PCM.PN ---
Subjective - Date & Time of Evaluation Date of Evaluation: 06/25/18 Time of Evaluation: 10:13 - Subjective Subjective: pt doing well. no distress/complaints. no f/c, n/v/d. hgb today 8.1 recd'd 2 units prbc yesterday all conslts appriciated Objective - Vital Signs/Intake and Output Vital Signs (last 24 hours): Temp Pulse Resp BP Pulse Ox 97.5 F L 59 L 18 98/64 L 96 06/25/18 08:32 06/25/18 08:32 06/25/18 08:32 06/25/18 08:32 06/25/18 08:32 Intake and Output: 06/25/18 06/25/18 06:59 18:59 Intake Total 2150 Balance 2150 - Medications Medications: Current Medications Acetaminophen (Tylenol 325mg Tab) 650 mg PO Q6 PRN PRN Reason: Pain, Mild (1-3) Last Admin: 06/22/18 17:46 Dose: 650 mg Gabapentin (Neurontin) 600 mg PO HS [facility] Last Admin: 06/22/18 21:43 Dose: 600 mg Hydrocortisone Sodium Succinate (Solu-Cortef) 100 mg IV Q6H [facility] Last Admin: 06/25/18 04:28 Dose: 100 mg Hydroxyzine HCl (Atarax) 25 mg PO Q6 PRN PRN Reason: Itching / Pruritus Methimazole (Tapazole) 10 mg PO BID [facility] Last Admin: 06/23/18 09:36 Dose: 10 mg Naproxen (Naproxen) 500 mg PO DAILY [facility] Last Admin: 06/23/18 09:37 Dose: 500 mg - Labs Labs: 06/25/18 05:00 06/25/18 05:00 PT 13.6 Seconds (9.8-13.1) H 06/20/18 18:00 INR 1.2 06/20/18 18:00 APTT 25.9 Seconds (25.6-37.1) 06/20/18 18:00 - Constitutional Appears: Well, Non-toxic, No Acute Distress - Head Exam Head Exam: ATRAUMATIC, NORMAL INSPECTION, NORMOCEPHALIC - Eye Exam Eye Exam: EOMI, Normal appearance, PERRL Pupil Exam: NORMAL ACCOMODATION, PERRL - ENT Exam ENT Exam: Mucous Membranes Moist, Normal Exam - Neck Exam Neck Exam: Full ROM, Normal Inspection. absent: Lymphadenopathy - Respiratory Exam Respiratory Exam: Clear to Ausculation Bilateral, NORMAL BREATHING PATTERN - Cardiovascular Exam Cardiovascular Exam: REGULAR RHYTHM, RRR, +S1, +S2. absent: Murmur - GI/Abdominal Exam GI & Abdominal Exam: Soft, Normal Bowel Sounds. absent: Tenderness - Extremities Exam Extremities Exam: Full ROM, Normal Capillary Refill, Normal Inspection. absent: Joint Swelling, Pedal Edema - Back Exam Back Exam: NORMAL INSPECTION - Neurological Exam Neurological Exam: Alert, Awake, CN II-XII Intact, Normal Gait, Oriented x3 - Psychiatric Exam Psychiatric exam: Normal Affect, Normal Mood - Skin Skin Exam: Dry, Intact, Normal Color, Warm Assessment and Plan (1) DVT prophylaxis Status: Acute (2) Hemolytic anemia Status: Acute (3) Hyperthyroidism Status: Acute (4) ITP (idiopathic thrombocytopenic purpura) Status: Acute - Assessment and Plan (Free Text) Assessment: (1) DVT prophylaxis Assessment & Plan: scd and ae hose hold anticoag r/t anemia-hemolytic Status: Acute (2) Hemolytic anemia Assessment & Plan: heme/onc rec'd 2 units prbc steroids ivig Status: Acute (3) Hyperthyroidism Assessment & Plan: endo cont home meds Status: Acute (4) ITP (idiopathic thrombocytopenic purpura) Assessment & Plan: heme/onc steroids Status: Acute hgb improving-case d/c w/ dr terry. cont monitor/steroids x 2 days, then possible dc
--- NOTE | 2018-06-25 10:37 | CP.PCM.PN ---
Subjective - Date & Time of Evaluation Date of Evaluation: 06/25/18 Time of Evaluation: 10:33 - Subjective Subjective: Pt is feeling much better, Piost transfusion the hgb is 8.1gms. The platelets are 69K. The bilirubin and ldh are also coming down. Objective - Vital Signs/Intake and Output Vital Signs (last 24 hours): Temp Pulse Resp BP Pulse Ox 97.5 F L 59 L 18 98/64 L 96 06/25/18 08:32 06/25/18 08:32 06/25/18 08:32 06/25/18 08:32 06/25/18 08:32 Intake and Output: 06/25/18 06/25/18 06:59 18:59 Intake Total 2150 Balance 2150 - Medications Medications: Current Medications Acetaminophen (Tylenol 325mg Tab) 650 mg PO Q6 PRN PRN Reason: Pain, Mild (1-3) Last Admin: 06/22/18 17:46 Dose: 650 mg Gabapentin (Neurontin) 600 mg PO HS [facility] Last Admin: 06/22/18 21:43 Dose: 600 mg Hydrocortisone Sodium Succinate (Solu-Cortef) 100 mg IV Q6H [facility] Last Admin: 06/25/18 04:28 Dose: 100 mg Hydroxyzine HCl (Atarax) 25 mg PO Q6 PRN PRN Reason: Itching / Pruritus Methimazole (Tapazole) 10 mg PO BID [facility] Last Admin: 06/23/18 09:36 Dose: 10 mg Naproxen (Naproxen) 500 mg PO DAILY [facility] Last Admin: 06/23/18 09:37 Dose: 500 mg - Labs Labs: 06/25/18 05:00 06/25/18 05:00 PT 13.6 Seconds (9.8-13.1) H 06/20/18 18:00 INR 1.2 06/20/18 18:00 APTT 25.9 Seconds (25.6-37.1) 06/20/18 18:00 Assessment and Plan - Assessment and Plan (Free Text) Plan: Plan; Will continue the hrdrocortisone for another 2-3 days to see if te hgb goes up, then try to taper t off. If there is no improvement will try rituxan q 2 weeks
[2018-06-25 18:47] LABS: TSI >700 % baseline (<140)
--- NOTE | 2018-06-25 23:10 | PN ---
DATE: 06/25/2018 LOCATION: Room 401, bed 1. SUBJECTIVE: This is a 37-year-old female with a known history of hyperthyroidism with underlying toxic multinodular goiter of moderate dimensions, presenting here with marked hemolytic anemia and is now undergoing close hematologic workup and management. She received and tolerated very well the packed RBC transfusion as given yesterday as noted. LABORATORY DATA: Her latest chemistry showed a BUN of 16, sodium 139, potassium 4, chloride 106, CO2 of 26, glucose 103 and creatinine 0.7. Her LDH is still elevated at 806. Her latest thyroid studies showed a T4 of 9.63 with a free T4 of 1.35 and a TSH of 0.14. Her serum cortisol level is 27.5 mcg/dL. PLAN OF MANAGEMENT: So at this time, we will concur with IV steroid therapy causing transient hyperglycemic accelerations as noted thereof. We will also hold off the resumption of the medical therapy for hyperthyroidism as noted. The only therapeutic option left at this time for the patient in case of full-blown biochemical relapse of hyperthyroidism would be surgical intervention with a near total thyroidectomy for the large multinodular goiter as present with the patient. She understands the implications of the aforementioned, and we will consider the surgical intervention by early 2019 as noted. We will obtain serial chemistries and serial thyroid studies accordingly. Taisha Sigala MD
[2018-06-26 05:35] LABS: BASO % 0.1 % (0.0-2.0); HEMOGLOBIN 8.9 g/dL (12.0-16.0); LYMPH # 1.6 K/uL (1.0-4.3); LYMPH % 13.8 % (20.0-40.0); MEAN CELL VOLUME 111.4 fl (81.0-99.0); MEAN CORPUSCULAR HEMOGLOBIN 36.3 pg (27.0-31.0); MEAN CORPUSCULAR HGB CONC 32.6 g/dL (33.0-37.0); MEAN PLATELET VOLUME 12.3 fl (7.2-11.7); MONO # 0.9 K/uL (0.0-0.8); MONO % 7.8 % (0.0-10.0); NEUT # 9.3 K/uL (1.8-7.0); NEUT % 78.3 % (50.0-75.0); NRBC % 2.9 % (0.0-0.0); RBC 2.46 Mil/uL (3.80-5.20); RED CELL DISTRIBUTION WIDTH 26.8 % (11.5-14.5); WHITE BLOOD COUNT 11.8 K/uL (4.8-10.8)
[2018-06-26 05:50] LABS: ALB/GLOB RATIO 0.9 (1.0-2.1); ALBUMIN 3.4 g/dL (3.5-5.0); ALT/SGPT 61 U/L (9-52); AST/SGOT 27 U/L (14-36); BLOOD UREA NITROGEN 15 mg/dl (7-17); CALCIUM 7.8 mg/dL (8.4-10.2); GFR NON-AFRICAN AMERICAN > 60
--- NOTE | 2018-06-26 09:04 | CP.PCM.PN ---
Subjective - Date & Time of Evaluation Date of Evaluation: 06/26/18 Time of Evaluation: 09:04 - Subjective Subjective: Pt has no more itching.Her hgb is 8.9gms, but platelets are down to 69K. Will continue the hydrocortisone. IVGG is back ordered, so if the hgb starts to drop,she will need rituxan. Objective - Vital Signs/Intake and Output Vital Signs (last 24 hours): Temp Pulse Resp BP Pulse Ox 98.1 F 68 18 110/72 97 06/26/18 07:59 06/26/18 07:59 06/26/18 07:59 06/26/18 07:59 06/26/18 07:59 - Medications Medications: Current Medications Acetaminophen (Tylenol 325mg Tab) 650 mg PO Q6 PRN PRN Reason: Pain, Mild (1-3) Last Admin: 06/22/18 17:46 Dose: 650 mg Gabapentin (Neurontin) 600 mg PO HS [facility] Last Admin: 06/22/18 21:43 Dose: 600 mg Hydroxyzine HCl (Atarax) 25 mg PO Q6 PRN PRN Reason: Itching / Pruritus Last Admin: 06/25/18 16:29 Dose: 25 mg Methimazole (Tapazole) 10 mg PO BID [facility] Last Admin: 06/23/18 09:36 Dose: 10 mg Naproxen (Naproxen) 500 mg PO DAILY [facility] Last Admin: 06/23/18 09:37 Dose: 500 mg - Labs Labs: 06/26/18 05:00 06/26/18 05:00 PT 13.6 Seconds (9.8-13.1) H 06/20/18 18:00 INR 1.2 06/20/18 18:00 APTT 25.9 Seconds (25.6-37.1) 06/20/18 18:00
[2018-06-26] MEDS ORDERED: Hydrocortisone- 100 MG in Sodium Chloride 0.9% 100 ML IV SCH (09:30)
--- NOTE | 2018-06-26 09:45 | CP.PCM.PN ---
Subjective - Date & Time of Evaluation Date of Evaluation: 06/26/18 Time of Evaluation: 09:30 - Subjective Subjective: pt doign well. nod istress. no f/c, n/v/d. bw noted. hgb 8.9. dr terry note reveiwed. Objective - Vital Signs/Intake and Output Vital Signs (last 24 hours): Temp Pulse Resp BP Pulse Ox 98.1 F 68 18 110/72 97 06/26/18 07:59 06/26/18 07:59 06/26/18 07:59 06/26/18 07:59 06/26/18 07:59 - Medications Medications: Current Medications Acetaminophen (Tylenol 325mg Tab) 650 mg PO Q6 PRN PRN Reason: Pain, Mild (1-3) Last Admin: 06/22/18 17:46 Dose: 650 mg Gabapentin (Neurontin) 600 mg PO HS [facility] Last Admin: 06/22/18 21:43 Dose: 600 mg Hydroxyzine HCl (Atarax) 25 mg PO Q6 PRN PRN Reason: Itching / Pruritus Last Admin: 06/25/18 16:29 Dose: 25 mg Hydrocortisone Sodium Succinate 100 mg/ Sodium Chloride 100 mls @ 100 mls/hr IV DAILY [facility] Methimazole (Tapazole) 10 mg PO BID [facility] Last Admin: 06/23/18 09:36 Dose: 10 mg Naproxen (Naproxen) 500 mg PO DAILY [facility] Last Admin: 06/23/18 09:37 Dose: 500 mg - Labs Labs: 06/26/18 05:00 06/26/18 05:00 PT 13.6 Seconds (9.8-13.1) H 06/20/18 18:00 INR 1.2 06/20/18 18:00 APTT 25.9 Seconds (25.6-37.1) 06/20/18 18:00 - Constitutional Appears: Well, Non-toxic, No Acute Distress - Head Exam Head Exam: ATRAUMATIC, NORMAL INSPECTION, NORMOCEPHALIC - Eye Exam Eye Exam: EOMI, Normal appearance, PERRL Pupil Exam: NORMAL ACCOMODATION, PERRL - ENT Exam ENT Exam: Mucous Membranes Moist, Normal Exam - Neck Exam Neck Exam: Full ROM, Normal Inspection. absent: Lymphadenopathy - Respiratory Exam Respiratory Exam: Clear to Ausculation Bilateral, NORMAL BREATHING PATTERN - Cardiovascular Exam Cardiovascular Exam: REGULAR RHYTHM, RRR, +S1, +S2. absent: Murmur - GI/Abdominal Exam GI & Abdominal Exam: Soft, Normal Bowel Sounds. absent: Tenderness - Extremities Exam Extremities Exam: Full ROM, Normal Capillary Refill, Normal Inspection. absent: Joint Swelling, Pedal Edema - Back Exam Back Exam: NORMAL INSPECTION - Neurological Exam Neurological Exam: Alert, Awake, CN II-XII Intact, Normal Gait, Oriented x3 - Psychiatric Exam Psychiatric exam: Normal Affect, Normal Mood - Skin Skin Exam: Dry, Intact, Normal Color, Warm Assessment and Plan (1) DVT prophylaxis Status: Acute (2) Hemolytic anemia Status: Acute (3) Hyperthyroidism Status: Acute (4) ITP (idiopathic thrombocytopenic purpura) Status: Acute - Assessment and Plan (Free Text) Assessment: (1) DVT prophylaxis Assessment & Plan: scd and ae hose hold anticoag r/t anemia-hemolytic Status: Acute (2) Hemolytic anemia Assessment & Plan: heme/onc rec'd 2 units prbc steroids ivig Status: Acute (3) Hyperthyroidism Assessment & Plan: endo cont home meds Status: Acute (4) ITP (idiopathic thrombocytopenic purpura) Assessment & Plan: heme/onc steroids Status: Acute hgb improving-case d/c w/ dr terry. cont monitor/steroids x 1 day, then possible dc
--- NOTE | 2018-06-26 19:54 | PN ---
DATE: 06/26/2018 SUBJECTIVE: This is a 37-year-old female with known history of hyperthyroidism with underlying toxic nodular goiter and remains clinically and biochemically euthyroid at this time and is now being followed closely and worked up by hematology for recent severe hemolytic anemia. Her medical therapy with Tapazole medications were withheld over the last few days till the present time as noted. LABORATORY DATA: Her chemistry showed a BUN of 16, sodium 139, potassium 4, chloride 106, CO2 26, glucose 103 and creatinine 0.7. Her thyroid studies showed T4 of 9.63 with a free T4 of 1.35 and a TSH of 0.14. Her thyroglobulin level is 1.30. Cortisol level is 27.5. ASSESSMENT AND PLAN: So at this time, we will continue the serial thyroid studies to be undertaken, especially that they have withheld the Tapazole medications as noted. We will await the clearance from the hematology regarding the upper mentioned plan of care. If she cannot go back on the Tapazole medications, the only option left for her is surgical intervention of her moderately enlarged multinodular goiter which could be done electively in the next few months as discussed lengthily with the patient at bedside. We will obtain serial chemistries and supplement accordingly as needed. We will follow. Taisha Sigala MD
[2018-06-27 05:57] LABS: BASO # 0.1 K/uL (0.0-0.2); BASO % 0.7 % (0.0-2.0); EOS # 0.2 K/uL (0.0-0.7); EOS % 1.5 % (0.0-4.0); HEMOGLOBIN 8.7 g/dL (12.0-16.0); LYMPH # 3.5 K/uL (1.0-4.3); MEAN CELL VOLUME 111.3 fl (81.0-99.0); MEAN CORPUSCULAR HEMOGLOBIN 36.2 pg (27.0-31.0); MEAN CORPUSCULAR HGB CONC 32.5 g/dL (33.0-37.0); MEAN PLATELET VOLUME 13.1 fl (7.2-11.7); MONO # 0.9 K/uL (0.0-0.8); MONO % 8.4 % (0.0-10.0); NEUT # 6.3 K/uL (1.8-7.0); NEUT % 57.4 % (50.0-75.0); NRBC % 1.1 % (0.0-0.0); RBC 2.39 Mil/uL (3.80-5.20); RED CELL DISTRIBUTION WIDTH 25.5 % (11.5-14.5)
[2018-06-27 06:21] LABS: T4 7.55 ug/dl (5.5-11.0)
--- NOTE | 2018-06-27 08:54 | CP.PCM.PN ---
Subjective - Date & Time of Evaluation Date of Evaluation: 06/27/18 Time of Evaluation: 08:53 - Subjective Subjective: pt doing well. bw noted. no distress. no complaints. h/h and plt appears stable. consults appriciated. Objective - Vital Signs/Intake and Output Vital Signs (last 24 hours): Temp Pulse Resp BP Pulse Ox 98.7 F 67 18 90/59 L 96 06/27/18 08:26 06/27/18 08:26 06/27/18 08:26 06/27/18 08:26 06/27/18 08:26 - Medications Medications: Current Medications Acetaminophen (Tylenol 325mg Tab) 650 mg PO Q6 PRN PRN Reason: Pain, Mild (1-3) Last Admin: 06/22/18 17:46 Dose: 650 mg Gabapentin (Neurontin) 600 mg PO HS [facility] Last Admin: 06/26/18 21:44 Dose: 600 mg Hydrocortisone Sodium Succinate (Solu-Cortef) 100 mg IV DAILY [facility] Last Admin: 06/26/18 12:39 Dose: 100 mg Hydroxyzine HCl (Atarax) 25 mg PO Q6 PRN PRN Reason: Itching / Pruritus Last Admin: 06/25/18 16:29 Dose: 25 mg Methimazole (Tapazole) 10 mg PO BID [facility] Last Admin: 06/26/18 19:27 Dose: 10 mg Naproxen (Naproxen) 500 mg PO DAILY [facility] Last Admin: 06/23/18 09:37 Dose: 500 mg - Labs Labs: 06/27/18 05:30 06/26/18 05:00 PT 13.6 Seconds (9.8-13.1) H 06/20/18 18:00 INR 1.2 06/20/18 18:00 APTT 25.9 Seconds (25.6-37.1) 06/20/18 18:00 - Constitutional Appears: Well, Non-toxic, No Acute Distress - Head Exam Head Exam: ATRAUMATIC, NORMAL INSPECTION, NORMOCEPHALIC - Eye Exam Eye Exam: EOMI, Normal appearance, PERRL Pupil Exam: NORMAL ACCOMODATION, PERRL - ENT Exam ENT Exam: Mucous Membranes Moist, Normal Exam - Neck Exam Neck Exam: Full ROM, Normal Inspection. absent: Lymphadenopathy - Respiratory Exam Respiratory Exam: Clear to Ausculation Bilateral, NORMAL BREATHING PATTERN - Cardiovascular Exam Cardiovascular Exam: REGULAR RHYTHM, +S1, +S2. absent: Murmur - GI/Abdominal Exam GI & Abdominal Exam: Soft, Normal Bowel Sounds. absent: Tenderness - Exam Bimanual exam: NORMAL BIMANUAL EXAM - Extremities Exam Extremities Exam: Full ROM, Normal Capillary Refill, Normal Inspection. absent: Joint Swelling, Pedal Edema - Back Exam Back Exam: NORMAL INSPECTION - Neurological Exam Neurological Exam: Alert, Awake, CN II-XII Intact, Normal Gait, Oriented x3 - Psychiatric Exam Psychiatric exam: Normal Affect, Normal Mood - Skin Skin Exam: Dry, Intact, Normal Color, Warm Assessment and Plan (1) DVT prophylaxis Status: Acute (2) Hemolytic anemia Status: Acute (3) Hyperthyroidism Status: Acute (4) ITP (idiopathic thrombocytopenic purpura) Status: Acute - Assessment and Plan (Free Text) Assessment: (1) DVT prophylaxis Assessment & Plan: scd and ae hose hold anticoag r/t anemia-hemolytic Status: Acute (2) Hemolytic anemia Assessment & Plan: heme/onc rec'd 2 units prbc steroids ivig Status: Acute (3) Hyperthyroidism Assessment & Plan: endo cont home meds Status: Acute (4) ITP (idiopathic thrombocytopenic purpura) Assessment & Plan: heme/onc steroids Status: Acute
[2018-06-27] MEDS: Naproxen 500 MG TAB PO SCH (09:41)
--- NOTE | 2018-06-27 10:23 | CP.PCM.PN ---
Subjective - Date & Time of Evaluation Date of Evaluation: 06/27/18 Time of Evaluation: 10:15 - Subjective Subjective: Pt has been well, even though the Hgb is down by 2 points, the LDH, Bilirubin, retic are all slowly improving. Howdomenicor when I saw her today she had hies and itching and a little difficulty swallowing because her thyroid seemed more enlar ged to her. She is better now. If things asr well tomorrow shre an go home with the steroids and will slowly taper them.CBC q 2-3 days. Objective - Vital Signs/Intake and Output Vital Signs (last 24 hours): Temp Pulse Resp BP Pulse Ox 98.7 F 67 18 90/59 L 96 06/27/18 08:26 06/27/18 08:26 06/27/18 08:26 06/27/18 08:26 06/27/18 08:26 - Medications Medications: Current Medications Acetaminophen (Tylenol 325mg Tab) 650 mg PO Q6 PRN PRN Reason: Pain, Mild (1-3) Last Admin: 06/27/18 09:41 Dose: 650 mg Gabapentin (Neurontin) 600 mg PO HS [facility] Last Admin: 06/26/18 21:44 Dose: 600 mg Hydrocortisone Sodium Succinate (Solu-Cortef) 100 mg IV DAILY [facility] Last Admin: 06/27/18 09:42 Dose: 100 mg Hydroxyzine HCl (Atarax) 25 mg PO Q6 PRN PRN Reason: Itching / Pruritus Last Admin: 06/27/18 09:41 Dose: 25 mg Methimazole (Tapazole) 10 mg PO BID [facility] Last Admin: 06/27/18 09:41 Dose: 10 mg Naproxen (Naproxen) 500 mg PO DAILY [facility] Last Admin: 06/27/18 09:41 Dose: 500 mg - Labs Labs: 06/27/18 05:30 06/26/18 05:00 PT 13.6 Seconds (9.8-13.1) H 06/20/18 18:00 INR 1.2 06/20/18 18:00 APTT 25.9 Seconds (25.6-37.1) 06/20/18 18:00
[2018-06-27] MEDS ORDERED: DiphenhydrAMINE 50 mg/ml Inj IVP STA (11:12)
--- NOTE | 2018-06-27 15:08 | PN ---
DATE: 06/27/2018 ENDO FOLLOWUP LOCATION: Room 401. SUBJECTIVE: This is a 37-year-old female with severe hemolytic anemia and currently is improving hematologically as noted with the latest hemoglobin of 8.7 g/dL as noted. She also has known history of hyperthyroidism with an underlying moderately enlarged multinodular goiter with compressive symptoms, especially more prominent in the last day or so in a patient with odynophagia and compressive effect on the anterior neck area as noted. LABORATORY DATA: Her latest chemistry showed a BUN of 15, sodium 139, potassium 3.8, chloride 107, CO2 of 27, glucose 112 and creatinine 0.5. Her repeat thyroxine or T4 level is 7.55 with a free T4 of 1.32 and a TSH of 0.07, indicative of early metabolic relapse from the underlying hyperthyroid condition. Her medical therapy was actually withheld over the last few days because of the aforementioned hematologic condition. Her thyroid stimulating immunoglobulin is extremely elevated at over 700 indicative and confirmatory for underlying Graves disease. PLAN OF MANAGEMENT: We will restart her Tapazole given as 10 mg b.i.d. as ordered and obtain serial thyroid studies and adjust her dose regimen accordingly. We will also order a thyroid ultrasound to document once again the moderately enlarged thyroid lobe that I mentioned. The eventual need for surgical intervention has been discussed once again with the patient that she agrees with the aforementioned. We will obtain serial chemistries and supplement accordingly as needed. We will follow. Taisha Sigala MD
--- NOTE | 2018-06-27 15:43 | US ---
Date of service: 06/27/2018 HISTORY: multinodular goiter w/ dysphagia; odynophagia TECHNIQUE: Sonographic evaluation of the thyroid gland. COMPARISON: 03/25/2018 FINDINGS: RIGHT LOBE: Measures 3 x 3 x 7.8 cm. Heterogenous echotexture, normal vascularity Nodules: Cystic nodule lower pole 4 x 4 x 4 mm. LEFT LOBE: Measures 2.6 x 2.7 x 6.8 cm. Heterogenous echotexture, normal vascularity Nodules: None ISTHMUS: Measures 5.5 mm. Nodules: None OTHER FINDINGS: None . IMPRESSION: Stable examination. Enlargement of the gland bilaterally, heterogeneous echo characteristics common normal vascularity. No significant nodules noted.
[2018-06-28 05:48] LABS: BASO % 0.1 % (0.0-2.0); EOS # 0.2 K/uL (0.0-0.7); EOS % 2.6 % (0.0-4.0); HEMOGLOBIN 8.5 g/dL (12.0-16.0); LYMPH # 2.6 K/uL (1.0-4.3); MEAN CELL VOLUME 109.8 fl (81.0-99.0); MEAN CORPUSCULAR HGB CONC 32.8 g/dL (33.0-37.0); MEAN PLATELET VOLUME 12.8 fl (7.2-11.7); MONO # 0.6 K/uL (0.0-0.8); MONO % 8.4 % (0.0-10.0); NEUT # 3.7 K/uL (1.8-7.0); NEUT % 52.9 % (50.0-75.0); NRBC % 0.3 % (0.0-0.0); RBC 2.36 Mil/uL (3.80-5.20); RED CELL DISTRIBUTION WIDTH 24.3 % (11.5-14.5); WHITE BLOOD COUNT 7.1 K/uL (4.8-10.8)
[2018-06-28 05:51] LABS: BLOOD UREA NITROGEN 14 mg/dl (7-17); CALCIUM 7.4 mg/dL (8.4-10.2); GFR NON-AFRICAN AMERICAN > 60
[2018-06-28 07:59] VITALS: RESP 18
--- NOTE | 2018-06-28 08:26 | CP.PCM.PN ---
Subjective - Date & Time of Evaluation Date of Evaluation: 06/28/18 Time of Evaluation: 08:21 - Subjective Subjective: Pt has no complaints today. No difficulty awalloeing,no rashes or itching, WBC 7.1, hgb 8,5gm, platelets 95K. Pt seems to have stabilized. If she is discharged, would do so on hydrocortisone 100 mg qid for 2 days ,then slowly She should have a CBC twice a week until the Hgb increases to normal. Objective - Vital Signs/Intake and Output Vital Signs (last 24 hours): Temp Pulse Resp BP Pulse Ox 98.7 F 70 18 94/59 L 99 06/28/18 07:58 06/28/18 07:58 06/28/18 07:58 06/28/18 07:58 06/28/18 07:58 - Medications Medications: Current Medications Acetaminophen (Tylenol 325mg Tab) 650 mg PO Q6 PRN PRN Reason: Pain, Mild (1-3) Last Admin: 06/27/18 09:41 Dose: 650 mg Gabapentin (Neurontin) 600 mg PO HS [facility] Last Admin: 06/27/18 21:03 Dose: 600 mg Hydrocortisone Sodium Succinate (Solu-Cortef) 100 mg IV DAILY [facility] Last Admin: 06/27/18 09:42 Dose: 100 mg Hydroxyzine HCl (Atarax) 25 mg PO Q6 PRN PRN Reason: Itching / Pruritus Last Admin: 06/27/18 09:41 Dose: 25 mg Methimazole (Tapazole) 10 mg PO BID [facility] Last Admin: 06/27/18 17:16 Dose: 10 mg Naproxen (Naproxen) 500 mg PO DAILY [facility] Last Admin: 06/27/18 09:41 Dose: 500 mg - Labs Labs: 06/28/18 04:25 06/28/18 04:25 PT 13.6 Seconds (9.8-13.1) H 06/20/18 18:00 INR 1.2 06/20/18 18:00 APTT 25.9 Seconds (25.6-37.1) 06/20/18 18:00
[2018-06-28] MEDS: Naproxen 500 MG TAB PO SCH (08:42)
--- NOTE | 2018-06-28 11:37 | CP.PCM.PCO ---
Assessment/Plan - Assessment/Plan Assessment: Patient seen and examined. Vital signs stable Hemoglobin stable Thyroid us reviewed and normal. Discussed with Dr Lisa Queen, patient cleared for discharge RX for hydrocortisone 100mg qid x2 days given and taper dose Tapazole rx also given. Patient will follow up with Dr Cort[facility] on Sunday for follow up CBC. Discussed with Alireza Luo who agrees with plan, Patient aware of dc plan.
[2018-06-28 12:06] VITALS: BP 95/60; PULSE 75; TEMP 99.2; O2SAT 96
--- NOTE | 2018-07-01 09:00 | PN ---
DATE: 06/28/2018 LOCATION: Room 401. SUBJECTIVE: This is a 37-year-old female with a known history of Graves disease with underlying toxic multinodular goiter and recent relapse of her hyperthyroid condition, presenting here with severe hemolytic anemia and has now improved hematologically and clinically as noted thereof. She remains clinically euthyroid but biochemically has developed a relapse as expected because of the withholding of the medical therapy for the last few days because of the underlying hemolytic anemia. LABORATORY DATA: Her latest TSH is 0.07 with a T4 of 7.55 and a free T4 of 1.32. MANAGEMENT PLAN: So at this time, she is scheduled for discharge today, and we will recommend a higher dose of the Tapazole given as 10 mg b.i.d. after meals as ordered. We will obtain serial thyroid studies and titrate her dose regimen accordingly. We will follow. Taisha Sigala MD
[2018-07-02 17:09] LABS: TSI 634 % baseline (<140)
== END 2018-06-28 13:18 | disposition home or self-care (01) | DRG 395 ==
LOC: H.ER 16:49 → H.ERHOLD 18:43 → H.TEL 23:06
PROVIDERS: ADMIT Family Medicine; ATTEND Family Medicine
PROC: 30233N1 Transfusion of Nonautologous Red Blood Cells into Peripheral Vein, Percutaneous Approach (ICD-10-PCS; principal; 2018-06-24)
DX: D58.9 Hereditary hemolytic anemia, unspecified (principal); E05.20 Thyrotoxicosis with toxic multinodular goiter without thyrotoxic crisis or storm; D69.3 Immune thrombocytopenic purpura; E06.3 Autoimmune thyroiditis; R13.10 Dysphagia, unspecified; Z90.81 Acquired absence of spleen; Z87.891 Personal history of nicotine dependence; Z88.7 Allergy status to serum and vaccine; Z91.041 Radiographic dye allergy status

== ENCOUNTER 2018-07-04 15:48 | Inpatient (IN) | payer MEDICAID ==
--- NOTE | 2018-07-04 17:01 | ED PDOC ---
HPI: General Adult Time Seen by Provider: 07/04/18 15:51 Chief Complaint (Nursing): Abnormal Labs Chief Complaint (Provider): Abnormal Labs History Per: Patient History/Exam Limitations: no limitations Additional Complaint(s): 37 years old female with history of anemia and hypothyroidism sent by PCP for repeat levels of CBC. Patient was found to be anemic as for her last visit. She reports her last blood transfusion was several years ago. Patient was told she appears jaundice but she denies any history of liver problem or abdominal pain. She states she is compliant on her medications. Patient denies any shortness of breath, blood in stool, vaginal bleeding, abdominal pain, vomiting or any other complaints. PMD: Selina Aguiar Past Medical History Reviewed: Historical Data, Nursing Documentation, Vital Signs Vital Signs: Last Vital Signs Temp 98.6 F 07/04/18 16:01 Pulse 85 07/04/18 16:01 Resp 16 07/04/18 16:01 BP 112/76 07/04/18 16:01 Pulse Ox 100 07/04/18 16:01 - Medical History PMH: Anemia, Asthma, Hyperthyroidism Denies: Alzheimer's Disease, Anxiety, Arthritis, Atrial Fibrillation, Bipolar Disorder, Bronchitis, CAD, Cardia Arrhythmia, CHF, COPD, Crohn's Disease, Dementia, Depression, Diverticulitis, Emphysema, Fractures, Gastritis, Gall Bladder Disease, HIV, HTN, Hypercholesterolemia, Hypothyroidism, Kidney Stones, Migraine, Mitral Valve Prolapse, Multiple Sclerosis, Osteoporosis, Pancreatitis, Paranoia, Parkinson's Disease, Peripheral Edema, Pneumonia, Post Traumatic Stress Disorder, Pulmonary Embolism, Chronic Kidney Disease, Rheumatoid Arthritis, Schizophrenia, Seizures, Sickle Cell Disease, Sexually Transmitted Disease, Sleep Apnea, TIA - Surgical History Surgical History: Denies: Appendectomy, CABG, Carotid Endarterectomy, Cholecystectomy, Coronary Stent, Pacemaker, Tonsillectomy - Family History Family History: States: Diabetes, Hypertension - Social History Current smoker - smoking cessation education provided: No Alcohol: None Drugs: Denies - Immunization History Hx Tetanus Toxoid Vaccination: No - Home Medications Home Medications: Ambulatory Orders Medication Instructions Recorded RX: Gabapentin [Neurontin] 600 mg PO HS 06/20/18 RX: Naproxen [Naprosyn] 500 mg PO DAILY 06/20/18 methIMAzole [Tapazole] 10 mg PO BID #60 tab 12/07/18 RX: Hydrocortisone [Cortef] 20 mg PO ASDIR 07/04/18 - Allergies Allergies/Adverse Reactions: Allergies Allergy/AdvReac Type Severity Reaction Status Date / Time iodine Allergy SHORTNESS Verified 07/04/18 16:01 OF BREATH pneumococcal vaccine Allergy RASH Verified 07/04/18 16:01 Review of Systems ROS Statement: Except As Marked, All Systems Reviewed And Found Negative Respiratory: Negative for: Shortness of Breath Gastrointestinal: Negative for: Vomiting, Abdominal Pain, Hematochezia Genitourinary Female: Negative for: Vaginal Bleeding Physical Exam - Reviewed Nursing Documentation Reviewed: Yes Vital Signs Reviewed: Yes - Physical Exam Appears: Positive for: No Acute Distress. Negative for: Well (Appears jaundice) Head Exam: Positive for: ATRAUMATIC, NORMOCEPHALIC Skin: Positive for: Normal Color, Warm, Dry Eye Exam: Positive for: Other (Conjunctival Icterus) Neck: Positive for: Normal, Painless ROM, Supple Cardiovascular/Chest: Positive for: Regular Rate, Rhythm. Negative for: Murmur Respiratory: Positive for: Normal Breath Sounds. Negative for: Respiratory Distress Gastrointestinal/Abdominal: Positive for: Normal Exam, Soft. Negative for: Tenderness Back: Positive for: Normal Inspection. Negative for: L CVA Tenderness, R CVA Tenderness Extremity: Positive for: Normal ROM. Negative for: Pedal Edema, Deformity Neurologic/Psych: Positive for: Alert, Oriented (x3) - Laboratory Results Result Diagrams: 07/09/18 04:25 07/09/18 04:25 - ECG O2 Sat by Pulse Oximetry: 100 (RA) Pulse Ox Interpretation: Normal Medical Decision Making Medical Decision Making: Time: A/P: 37 years old female presents for workup for anemia and jaundice --Labs --No pain or discomfort at this time, no indication of meds --If hemoglobin hepatic levels are increased, no indication for blood transfusion --RUQ US, if US and LFTs are within normal limits, will discharge home 1809 Abdomen US FINDINGS: LIVER: Measures 17.9 cm in length. Echogenic liver may be seen in setting of hepatic parenchymal disease or fatty infiltration. No focal hepatic mass identified. The main portal vein appears patent with normal directional flow. No intrahepatic bile duct dilatation. GALLBLADDER: No gallstones. No gallbladder wall thickening or pericholecystic edema. Negative sonographic Sanchez's sign as assessed by the mortgage professional. COMMON BILE DUCT: Measures 5 mm. PANCREAS: Not well-visualized. RIGHT KIDNEY: Measures approximately 11.1 x 6.7 x 6.3 cm. No obstructing calculus or hydronephrosis identified. AORTA: Limited visualization appears grossly unremarkable. IVC: Limited visualization appears grossly unremarkable. OTHER FINDINGS: None . IMPRESSION: Echogenic liver may be seen in setting of hepatic parenchymal disease or fatty infiltration. 1920 Patient's hemoglobin dropped 0.1 with 6.5 yesterday. Patient states as she tries to walk in the ED, she feels palpitations. 1 unit of blood transfer will be given and admit to telemetry. Patient is informed of elevated liver enzymes and abnormality seen on US. Will consult GI as patient is admitted. 7:40 pm. Spoke with Alireza Luo, NICHOLAS and pt to be admitted for hemolytic anemia with elevated liver enzymes/juandice. Consult placed for Dr. Queen and pt has consented for blood transfusion. Scribe Attestation: Documented by Estefani Stuton, acting as a scribe for Jenn Aguilera MD. Provider Scribe Attestation: All medical record entries made by the Scribe were at my direction and personally dictated by me. I have reviewed the chart and agree that the record accurately reflects my personal performance of the history, physical exam, medical decision making, and the department course for this patient. I have also personally directed, reviewed, and agree with the discharge instructions and disposition. Disposition - Clinical Impression Clinical Impression: Elevated LFTs, Hemolytic anemia - Patient ED Disposition Is Patient to be Admitted: Yes - Disposition Disposition Time: 19:20 Condition: GUARDED
[2018-07-04 17:22] LABS: INR 1.1; PROTHROMBIN TIME 12.2 Seconds (9.8-13.1)
[2018-07-04 17:23] LABS: BASO # 0.2 K/uL (0.0-0.2); BASO % 1.4 % (0.0-2.0); EOS # 0.1 K/uL (0.0-0.7); EOS % 0.7 % (0.0-4.0); LYMPH # 1.3 K/uL (1.0-4.3); LYMPH % 8.7 % (20.0-40.0); MEAN CELL VOLUME 116.1 fl (81.0-99.0); MEAN CORPUSCULAR HEMOGLOBIN 36.6 pg (27.0-31.0); MEAN CORPUSCULAR HGB CONC 31.5 g/dL (33.0-37.0); MEAN PLATELET VOLUME 8.6 fl (7.2-11.7); MONO # 0.7 K/uL (0.0-0.8); MONO % 4.4 % (0.0-10.0); NEUT # 12.8 K/uL (1.8-7.0); NEUT % 84.8 % (50.0-75.0); NRBC % 0.5 % (0.0-0.0); PLATELET COUNT 413 K/uL (130-400); RBC 1.76 Mil/uL (3.80-5.20); RED CELL DISTRIBUTION WIDTH 25.8 % (11.5-14.5); WHITE BLOOD COUNT 15.1 K/uL (4.8-10.8)
[2018-07-04 17:50] LABS: HEMOGLOBIN 6.4 g/dL (12.0-16.0)
[2018-07-04 18:12] LABS: ALB/GLOB RATIO 1.1 (1.0-2.1); ALT/SGPT 70 U/L (9-52); AST/SGOT 91 U/L (14-36); BLOOD UREA NITROGEN 16 mg/dl (7-17); CALCIUM 8.5 mg/dL (8.4-10.2); GFR NON-AFRICAN AMERICAN > 60; LIPASE 56 U/L (23-300)
--- NOTE | 2018-07-04 18:14 | US ---
Date of service: 07/04/2018 HISTORY: Jaundice COMPARISON: CT abdomen and pelvis with contrast performed 04/30/14. TECHNIQUE: Sonographic evaluation of the right upper quadrant of the abdomen. FINDINGS: LIVER: Measures 17.9 cm in length. Echogenic liver may be seen in setting of hepatic parenchymal disease or fatty infiltration. No focal hepatic mass identified. The main portal vein appears patent with normal directional flow. No intrahepatic bile duct dilatation. GALLBLADDER: No gallstones. No gallbladder wall thickening or pericholecystic edema. Negative sonographic Sanchez's sign as assessed by the mini baccarat dealer. COMMON BILE DUCT: Measures 5 mm. PANCREAS: Not well-visualized. RIGHT KIDNEY: Measures approximately 11.1 x 6.7 x 6.3 cm. No obstructing calculus or hydronephrosis identified. AORTA: Limited visualization appears grossly unremarkable. IVC: Limited visualization appears grossly unremarkable. OTHER FINDINGS: None . IMPRESSION: Echogenic liver may be seen in setting of hepatic parenchymal disease or fatty infiltration.
[2018-07-04 19:20] LABS: BANDS 3 % (0-2); EOSINOPHIL 1 % (0-7); LYMPHOCYTE 9 % (20-50); MONOCYTE 7 % (0-10); NEUTROPHIL 80 % (42-75); PLATELET ESTIMATE NORMAL (NORMAL); TOTAL CELLS COUNTED 100
[2018-07-04 19:21] LABS: ANISOCYTOSIS MARKED; POIKILOCYTOSIS MARKED; POLYCHROMIC MARKED; SPHEROCYTES SLIGHT; TARGET CELLS SLIGHT
[2018-07-04 19:22] LABS: OVALOCYTES SLIGHT; SCHISTOCYTES SLIGHT
[2018-07-05 05:50] LABS: MEAN CELL VOLUME 116.4 fl (81.0-99.0); MEAN CORPUSCULAR HGB CONC 31.8 g/dL (33.0-37.0); RBC 1.63 Mil/uL (3.80-5.20); RED CELL DISTRIBUTION WIDTH 25.7 % (11.5-14.5)
[2018-07-05 06:14] LABS: ALB/GLOB RATIO 1.1 (1.0-2.1); ALBUMIN 3.5 g/dL (3.5-5.0); ALT/SGPT 74 U/L (9-52); AST/SGOT 49 U/L (14-36); BLOOD UREA NITROGEN 15 mg/dl (7-17); CALCIUM 8.4 mg/dL (8.4-10.2); GFR NON-AFRICAN AMERICAN > 60
--- NOTE | 2018-07-05 11:40 | CP.PCM.CON ---
History of Present Illness - History of Present Illness History of Present Illness: This is a 37 yrs o0ld female was released from the hospital about a week ago when she had been admitted for a severe autoimmune anemia. It was a problem finding a compatible unit of blood. Blood was sent to the blood center but no external antibody was found. They were all auto antibodies.. and se had to transfused the above mentioned blood, with pre treatment with Tylenol, benadryl and solumedrol.. and she tolerated the transfusion well. She has a lot of auto immune problems including thyroid,joints, and now red blood cells. she had a similar episode in 2013, but only the platelets were involved. Past h/o immune thrombocytopenia. Hyperthyuroidism Now her platelets are normal but Hgbwas only 6.1. The bilirubin and LFT are high as well. Past Patient History - Past Medical History & Family History Past Medical History?: Yes - Past Social History Smoking Status: Former Smoker - CARDIAC Hx Cardiac Disorders: No Hx Atrial Fibrillation: No Hx Cardia Arrhythmia: No Hx Congestive Heart Failure: No Hx Hypercholesterolemia: No Hx Hypertension: No Hx Mitral Valve Prolapse: No Hx Pacemaker: No Hx Peripheral Edema: No - PULMONARY Hx Respiratory Disorders: Yes Hx Asthma: Yes Hx Bronchitis: No Hx Chronic Obstructive Pulmonary Disease (COPD): No Hx Emphysema: No Hx Pneumonia: No Hx Pulmonary Embolism: No Hx Sleep Apnea: No - NEUROLOGICAL Hx Neurological Disorder: No Hx Alzheimer's Disease: No Hx Dementia: No Hx Migraine: No Hx Multiple Sclerosis: No Hx Parkinson's Disease: No Hx Seizures: No Hx Transient Ischemic Attacks (TIA): No - HEENT Hx HEENT Problems: No - RENAL Hx Chronic Kidney Disease: No - ENDOCRINE/METABOLIC Hx Endocrine Disorders: Yes Hx Hyperthyroidism: Yes Hx Hypothyroidism: No - HEMATOLOGICAL/ONCOLOGICAL Hx Blood Disorders: Yes Hx Anemia: Yes - INTEGUMENTARY Hx Dermatological Problems: No - MUSCULOSKELETAL/RHEUMATOLOGICAL Hx Musculoskeletal Disorders: No Hx Arthritis: No Hx Falls: No Hx Fractures: No Hx Osteoporosis: No Hx Rheumatoid Arthritis: No - GASTROINTESTINAL Hx Gastrointestinal Disorders: No Hx Crohn's Disease: No Hx Diverticulitis: No Hx Gall Bladder Disease: No Hx Gastritis: No Hx Pancreatitis: No - GENITOURINARY/GYNECOLOGICAL Hx Genitourinary Disorders: No Hx Sexually Transmitted Disorders: No - PSYCHIATRIC Hx Psychophysiologic Disorder: No Hx Anxiety: No Hx Bipolar Disorder: No Hx Depression: No Hx Paranoia: No Hx Post Traumatic Stress Disorder: No Hx Schizophrenia: No Hx Substance Use: No - SURGICAL HISTORY Hx Surgeries: Yes Hx Appendectomy: No Hx Carotid Endarterectomy: No Hx Cholecystectomy: No Hx Coronary Artery Bypass Graft: No Hx Coronary Stent: No Hx Splenectomy: Yes Hx Tonsillectomy: No - ANESTHESIA Hx Anesthesia: Yes Hx Anesthesia Reactions: No Hx Malignant Hyperthermia: No Has any member of the family had a problem w/ anesthesia?: No Meds Allergies/Adverse Reactions: Allergies Allergy/AdvReac Type Severity Reaction Status Date / Time iodine Allergy SHORTNESS Verified 07/04/18 16:01 OF BREATH pneumococcal vaccine Allergy RASH Verified 07/04/18 16:01 - Medications Medications: Current Medications Gabapentin (Neurontin) 600 mg PO HS GREGORIO Last Admin: 07/04/18 23:21 Dose: 600 mg Hydrocortisone (Cortef) 20 mg PO DAILY GREGORIO Stop: 07/11/18 09:00 Hydrocortisone (Cortef) 20 mg PO TID GREGORIO Stop: 07/07/18 11:59 Methimazole (Tapazole) 10 mg PO BID GREGORIO Naproxen (Naproxen) 500 mg PO DAILY GREGORIO Physical Exam - Additional Findings Additional findings: Physical exam;Pt is alert,oriented in no distress, sclera icteric neck supple, no adenopathy Chest; Clear, no rales or rhonchi Heart; RSR, no murmur Abd; Soft, no mass, no h/s megaly. Results - Vital Signs Recent Vital Signs: Last Vital Signs Temp 98.0 F 07/05/18 04:06 Pulse 87 07/05/18 04:06 Resp 16 07/05/18 04:06 BP 100/64 07/05/18 04:06 Pulse Ox 99 07/05/18 04:06 - Labs Result Diagrams: 07/05/18 04:25 07/05/18 04:25 Labs: Laboratory Results - last 24 hr 07/04/18 07/04/18 07/04/18 16:48 16:48 16:48 WBC 15.1 H D RBC 1.76 L Hgb 6.4 L* D Hct 20.4 L MCV 116.1 H D MCH 36.6 H MCHC 31.5 L RDW 25.8 H Plt Count 413 H D MPV 8.6 Neut % (Auto) 84.8 H Lymph % (Auto) 8.7 L [place] % (Auto) 4.4 Eos % (Auto) 0.7 Baso % (Auto) 1.4 Neut # (Auto) 12.8 H Lymph # (Auto) 1.3 [place] # (Auto) 0.7 Eos # (Auto) 0.1 Baso # (Auto) 0.2 Neutrophils % (Manual) 80 H Band Neutrophils % 3 H Lymphocytes % (Manual) 9 L Monocytes % (Manual) 7 Eosinophils % (Manual) 1 Platelet Estimate Normal Polychromasia Marked Poikilocytosis (manual Marked Anisocytosis (manual) Marked Macrocytosis (manual) Marked Spherocytes Slight Target Cells Slight Ovalocytes Slight Schistocytes Slight PT 12.2 INR 1.1 APTT 22.0 L Sodium Potassium Chloride Carbon Dioxide Anion Gap BUN Creatinine Est GFR ( Amer) Est GFR (Non-Af Amer) Random Glucose Calcium Total Bilirubin AST ALT Alkaline Phosphatase Total Protein Albumin Globulin Albumin/Globulin Ratio Lipase Blood Type A POSITIVE Antibody Screen Positive Antibody Identification Anti S Crossmatch See Detail BBK History Checked Patient has bt 07/04/18 07/05/18 07/05/18 16:48 04:25 04:25 WBC 14.0 H RBC 1.63 L Hgb 6.0 L* Hct 19.0 L MCV 116.4 H MCH 37.0 H MCHC 31.8 L RDW 25.7 H Plt Count 389 MPV Neut % (Auto) Lymph % (Auto) [place] % (Auto) Eos % (Auto) Baso % (Auto) Neut # (Auto) Lymph # (Auto) [place] # (Auto) Eos # (Auto) Baso # (Auto) Neutrophils % (Manual) Band Neutrophils % Lymphocytes % (Manual) Monocytes % (Manual) Eosinophils % (Manual) Platelet Estimate Polychromasia Poikilocytosis (manual Anisocytosis (manual) Macrocytosis (manual) Spherocytes Target Cells Ovalocytes Schistocytes PT INR APTT Sodium 137 139 Potassium 4.8 4.8 Chloride 102 104 Carbon Dioxide 25 28 Anion Gap 15 12 BUN 16 15 Creatinine 0.5 L 0.5 L Est GFR ( Amer) > 60 > 60 Est GFR (Non-Af Amer) > 60 > 60 Random Glucose 100 96 Calcium 8.5 8.4 Total Bilirubin 5.6 H 7.5 H AST 91 H D 49 H D ALT 70 H 74 H Alkaline Phosphatase 57 53 Total Protein 7.6 6.7 Albumin 4.0 3.5 Globulin 3.6 3.2 Albumin/Globulin Ratio 1.1 1.1 Lipase 56 Blood Type Antibody Screen Antibody Identification Crossmatch BBK History Checked Assessment & Plan - Assessment and Plan (Free Text) Assessment: impression; Auto immune hemolytic anemia Plan: Plan;will transfuse 2 units of least incompatible blood and pretreat her with medrol, tylenol and benadryl as well. Will keep her on steroids for a few days more, but if the hgb falls again,will give rituximab - Date & Time Date: 07/05/18 Time: 11:56
[2018-07-05] MEDS ORDERED: MethylPREDNISolone 40 mg Vial IVP ONE (11:45)
[2018-07-05] MEDS ORDERED: methylPREDNISolone 40 MG in Sodium Chloride 0.9% 50 ML IVPB ONE (12:00)
[2018-07-05] MEDS: Naproxen 500 MG TAB PO SCH (12:09)
--- NOTE | 2018-07-05 18:34 | CP.PCM.HP ---
History of Present Illness - History of Present Illness History of Present Illness: pt doing wel no fcnvd admitted for hemolytic anemia low h/h and jaundice with elev lft and bili noted consult with stacy terry noted Present on Admission - Present on Admission Any Indicators Present on Admission: No Review of Systems - Integumentary Integumentary: As Per HPI, Jaundice Past Patient History - Past Medical History & Family History Past Medical History?: Yes - Past Social History Smoking Status: Former Smoker - CARDIAC Hx Cardiac Disorders: No Hx Atrial Fibrillation: No Hx Cardia Arrhythmia: No Hx Congestive Heart Failure: No Hx Hypercholesterolemia: No Hx Hypertension: No Hx Mitral Valve Prolapse: No Hx Pacemaker: No Hx Peripheral Edema: No - PULMONARY Hx Respiratory Disorders: Yes Hx Asthma: Yes Hx Bronchitis: No Hx Chronic Obstructive Pulmonary Disease (COPD): No Hx Emphysema: No Hx Pneumonia: No Hx Pulmonary Embolism: No Hx Sleep Apnea: No - NEUROLOGICAL Hx Neurological Disorder: No Hx Alzheimer's Disease: No Hx Dementia: No Hx Migraine: No Hx Multiple Sclerosis: No Hx Parkinson's Disease: No Hx Seizures: No Hx Transient Ischemic Attacks (TIA): No - HEENT Hx HEENT Problems: No - RENAL Hx Chronic Kidney Disease: No - ENDOCRINE/METABOLIC Hx Endocrine Disorders: Yes Hx Hyperthyroidism: Yes Hx Hypothyroidism: No - HEMATOLOGICAL/ONCOLOGICAL Hx Blood Disorders: Yes Hx Anemia: Yes - INTEGUMENTARY Hx Dermatological Problems: No - MUSCULOSKELETAL/RHEUMATOLOGICAL Hx Musculoskeletal Disorders: No Hx Arthritis: No Hx Falls: No Hx Fractures: No Hx Osteoporosis: No Hx Rheumatoid Arthritis: No - GASTROINTESTINAL Hx Gastrointestinal Disorders: No Hx Crohn's Disease: No Hx Diverticulitis: No Hx Gall Bladder Disease: No Hx Gastritis: No Hx Pancreatitis: No - GENITOURINARY/GYNECOLOGICAL Hx Genitourinary Disorders: No Hx Sexually Transmitted Disorders: No - PSYCHIATRIC Hx Psychophysiologic Disorder: No Hx Anxiety: No Hx Bipolar Disorder: No Hx Depression: No Hx Paranoia: No Hx Post Traumatic Stress Disorder: No Hx Schizophrenia: No Hx Substance Use: No - SURGICAL HISTORY Hx Surgeries: Yes Hx Appendectomy: No Hx Carotid Endarterectomy: No Hx Cholecystectomy: No Hx Coronary Artery Bypass Graft: No Hx Coronary Stent: No Hx Splenectomy: Yes Hx Tonsillectomy: No - ANESTHESIA Hx Anesthesia: Yes Hx Anesthesia Reactions: No Hx Malignant Hyperthermia: No Has any member of the family had a problem w/ anesthesia?: No Meds Allergies/Adverse Reactions: Allergies Allergy/AdvReac Type Severity Reaction Status Date / Time iodine Allergy SHORTNESS Verified 07/04/18 16:01 OF BREATH pneumococcal vaccine Allergy RASH Verified 07/04/18 16:01 Physical Exam - Constitutional Appears: Well, Non-toxic, No Acute Distress - Head Exam Head Exam: ATRAUMATIC, NORMAL INSPECTION, NORMOCEPHALIC - Eye Exam Eye Exam: EOMI, Normal appearance, PERRL Pupil Exam: NORMAL ACCOMODATION, PERRL - ENT Exam ENT Exam: Mucous Membranes Moist, Normal Exam - Neck Exam Neck exam: Positive for: Normal Inspection - Respiratory Exam Respiratory Exam: Clear to Auscultation Bilateral, NORMAL BREATHING PATTERN - Cardiovascular Exam Cardiovascular Exam: REGULAR RHYTHM, RRR, +S1, +S2 - GI/Abdominal Exam GI & Abdominal Exam: Normal Bowel Sounds, Soft. absent: Tenderness - Extremities Exam Extremities exam: Positive for: full ROM, normal capillary refill, normal inspe ction, pedal pulses present - Back Exam Back exam: NORMAL INSPECTION - Neurological Exam Neurological exam: Alert, CN II-XII Intact, Normal Gait, Oriented x3, Reflexes Normal - Psychiatric Exam Psychiatric exam: Normal Affect, Normal Mood - Skin Skin Exam: Dry, Intact, Warm Additional comments: jaundice Results - Vital Signs Recent Vital Signs: Last Vital Signs Temp 98.6 F 07/05/18 15:10 Pulse 103 H 07/05/18 15:10 Resp 18 07/05/18 15:10 BP 93/59 L 07/05/18 15:10 Pulse Ox 98 07/05/18 13:10 - Labs Result Diagrams: 07/06/18 05:30 07/05/18 04:25 Labs: Laboratory Results - last 24 hr 07/04/18 07/04/18 07/05/18 16:48 16:48 04:25 WBC 14.0 H RBC 1.63 L Hgb 6.0 L* Hct 19.0 L MCV 116.4 H MCH 37.0 H MCHC 31.8 L RDW 25.7 H Plt Count 389 Neutrophils % (Manual) 80 H Band Neutrophils % 3 H Lymphocytes % (Manual) 9 L Monocytes % (Manual) 7 Eosinophils % (Manual) 1 Platelet Estimate Normal Polychromasia Marked Poikilocytosis (manual Marked Anisocytosis (manual) Marked Macrocytosis (manual) Marked Spherocytes Slight Target Cells Slight Ovalocytes Slight Schistocytes Slight Sodium Potassium Chloride Carbon Dioxide Anion Gap BUN Creatinine Est GFR ( Amer) Est GFR (Non-Af Amer) Random Glucose Calcium Total Bilirubin AST ALT Alkaline Phosphatase Total Protein Albumin Globulin Albumin/Globulin Ratio Blood Type A POSITIVE Antibody Screen Positive Antibody Identification Anti S Crossmatch See Detail BBK History Checked Patient has bt 07/05/18 04:25 WBC RBC Hgb Hct MCV MCH MCHC RDW Plt Count Neutrophils % (Manual) Band Neutrophils % Lymphocytes % (Manual) Monocytes % (Manual) Eosinophils % (Manual) Platelet Estimate Polychromasia Poikilocytosis (manual Anisocytosis (manual) Macrocytosis (manual) Spherocytes Target Cells Ovalocytes Schistocytes Sodium 139 Potassium 4.8 Chloride 104 Carbon Dioxide 28 Anion Gap 12 BUN 15 Creatinine 0.5 L Est GFR ( Amer) > 60 Est GFR (Non-Af Amer) > 60 Random Glucose 96 Calcium 8.4 Total Bilirubin 7.5 H AST 49 H D ALT 74 H Alkaline Phosphatase 53 Total Protein 6.7 Albumin 3.5 Globulin 3.2 Albumin/Globulin Ratio 1.1 Blood Type Antibody Screen Antibody Identification Crossmatch BBK History Checked Assessment & Plan (1) DVT prophylaxis Assessment and Plan: scd and aehose hold anticoag r/t hemolytic anemia Status: Acute (2) Hemolytic anemia Assessment and Plan: 2 units o neg heme/onc steroids Status: Acute (3) Hyperthyroidism Assessment and Plan: cont meds Status: Acute (4) ITP (idiopathic thrombocytopenic purpura) Assessment and Plan: steroids heme/onc Status: Acute (5) Elevated LFTs Assessment and Plan: gi r/t hemolytic anemia Status: Acute - Assessment and Plan (Free Text) Assessment: jaundice-gi r/t anemia Decision To Admit - Pt Status Changed To: Hospital Disposition Of: Inpatient - Admit Certification Admit to Inpatient:: After my assessment, the patient will require hospitalization for at least two midnights. This is because of the severity of symptoms shown, intensity of services needed, and/or the medical risk in this patient being treated as an outpatient. - . Bed Request Type: Telemetry Admitting Physician: Shelly Callahan
--- NOTE | 2018-07-05 22:35 | CON ---
DATE: 07/05/2018 REFERRING PHYSICIAN: Dr. Callahan REASON FOR CONSULTATION: Elevated LFTs. HISTORY OF PRESENT ILLNESS: This is a 37-year-old female with a history of some kind of anemia in the past, comes in for profound weakness and fatigue, found to be anemic and meanwhile has elevated LFTs. History is obtained from the chart and staff. Currently lying in bed comfortably, in no apparent distress. PAST MEDICAL HISTORY: As above. PAST SURGICAL HISTORY: As above. MEDICATIONS: Have been reviewed. REVIEW OF SYSTEMS: All other systems have been reviewed and negative apart from the HPI. PHYSICAL EXAMINATION: GENERAL: This is a young female, lying in bed comfortably, in no apparent distress. VITAL SIGNS: Here in the hospital grossly unremarkable. HEENT: Head, normocephalic, atraumatic. Eyes, pupils equally reactive to light bilaterally. There is no conjunctival icterus, no pallor. NECK: Supple. Normal range of motion. No lymphadenopathy appreciated. LUNGS: Coarse breath sounds bilaterally. HEART: S1 and S2. Regular rate and rhythm. No murmurs appreciated. ABDOMEN: Soft, nontender. Bowel sounds present. No rebound. No guarding. RECTAL: Deferred. EXTREMITIES: Pulses present bilaterally. SKIN: Warm, dry, and intact. NEUROLOGIC: A and O x3. LABORATORY DATA: All labs and relevant radiology have been reviewed. Labs include a WBC of 14.2, hemoglobin 6.9, hematocrit 19, platelet count of 389. INR 1.1. Total bilirubin is 7.5, AST 49, ALT 74. Ultrasound is grossly unremarkable. ASSESSMENT AND PLAN: This is a 37-year-old female with hemolytic anemia. From gastroenterology standpoint, elevation of liver function tests is . No structural issues noted. No pain. No nausea. Advance diet as tolerated. Oncology input is greatly appreciated. Thank you for the consult. Dimitri Lua MD/ PhD cc: Dr. Callahan
[2018-07-06 07:17] LABS: BASO % 0.3 % (0.0-2.0); EOS # 0.1 K/uL (0.0-0.7); EOS % 0.5 % (0.0-4.0); HEMOGLOBIN 7.3 g/dL (12.0-16.0); LYMPH % 13.6 % (20.0-40.0); MEAN CELL VOLUME 104.1 fl (81.0-99.0); MEAN CORPUSCULAR HEMOGLOBIN 33.8 pg (27.0-31.0); MEAN CORPUSCULAR HGB CONC 32.5 g/dL (33.0-37.0); MEAN PLATELET VOLUME 7.8 fl (7.2-11.7); MONO # 0.6 K/uL (0.0-0.8); MONO % 3.9 % (0.0-10.0); NEUT # 12.1 K/uL (1.8-7.0); NEUT % 81.7 % (50.0-75.0); NRBC % 0.2 % (0.0-0.0); RBC 2.16 Mil/uL (3.80-5.20); RED CELL DISTRIBUTION WIDTH 30.8 % (11.5-14.5); WHITE BLOOD COUNT 14.8 K/uL (4.8-10.8)
[2018-07-06] MEDS: Naproxen 500 MG TAB PO SCH (09:42)
--- NOTE | 2018-07-06 14:20 | CP.PCM.PN ---
Subjective - Date & Time of Evaluation Date of Evaluation: 07/06/18 Time of Evaluation: 14:20 - Subjective Subjective: pt doing wel less jaundice mo fcnvd bw noted case dc w/ dr stacy terry Objective - Vital Signs/Intake and Output Vital Signs (last 24 hours): Temp Pulse Resp BP Pulse Ox 98.2 F 71 20 104/67 98 07/06/18 04:52 07/06/18 04:52 07/06/18 04:52 07/06/18 04:52 07/06/18 04:52 Intake and Output: 07/06/18 07/06/18 06:59 18:59 Intake Total 950 Balance 950 - Medications Medications: Current Medications Gabapentin (Neurontin) 600 mg PO HS [facility] Last Admin: 07/05/18 21:52 Dose: 600 mg Hydrocortisone (Cortef) 20 mg PO DAILY [facility] Stop: 07/11/18 09:00 Hydrocortisone (Cortef) 20 mg PO TID [facility] Stop: 07/07/18 11:59 Last Admin: 07/06/18 12:03 Dose: 20 mg Methimazole (Tapazole) 10 mg PO BID [facility] Last Admin: 07/06/18 09:43 Dose: 10 mg Naproxen (Naproxen) 500 mg PO DAILY [facility] Last Admin: 07/06/18 09:42 Dose: 500 mg - Labs Labs: 07/06/18 05:30 07/05/18 04:25 PT 12.2 Seconds (9.8-13.1) 07/04/18 16:48 INR 1.1 07/04/18 16:48 APTT 22.0 Seconds (25.6-37.1) L 07/04/18 16:48 - Constitutional Appears: Well, Non-toxic, No Acute Distress - Head Exam Head Exam: ATRAUMATIC, NORMAL INSPECTION, NORMOCEPHALIC - Eye Exam Eye Exam: EOMI, Normal appearance, PERRL Pupil Exam: NORMAL ACCOMODATION, PERRL - ENT Exam ENT Exam: Mucous Membranes Moist, Normal Exam - Neck Exam Neck Exam: Full ROM, Normal Inspection. absent: Lymphadenopathy - Respiratory Exam Respiratory Exam: Clear to Ausculation Bilateral, NORMAL BREATHING PATTERN - Cardiovascular Exam Cardiovascular Exam: REGULAR RHYTHM, RRR, +S1, +S2. absent: Murmur - GI/Abdominal Exam GI & Abdominal Exam: Soft, Normal Bowel Sounds. absent: Tenderness - Extremities Exam Extremities Exam: Full ROM, Normal Capillary Refill, Normal Inspection. absent: Joint Swelling, Pedal Edema - Back Exam Back Exam: NORMAL INSPECTION - Neurological Exam Neurological Exam: Alert, Awake, CN II-XII Intact, Normal Gait, Oriented x3 - Psychiatric Exam Psychiatric exam: Normal Affect, Normal Mood - Skin Skin Exam: Dry, Intact, Warm Additional comments: jaundice Assessment and Plan (1) DVT prophylaxis Status: Acute (2) Hemolytic anemia Status: Acute (3) Hyperthyroidism Status: Acute (4) ITP (idiopathic thrombocytopenic purpura) Status: Acute (5) Elevated LFTs Status: Acute - Assessment and Plan (Free Text) Assessment: (1) DVT prophylaxis Assessment and Plan: scd and aehose hold anticoag r/t hemolytic anemia Status: Acute (2) Hemolytic anemia Assessment and Plan: 2 units o neg heme/onc steroids Status: Acute (3) Hyperthyroidism Assessment and Plan: cont meds Status: Acute (4) ITP (idiopathic thrombocytopenic purpura) Assessment and Plan: steroids heme/onc Status: Acute (5) Elevated LFTs Assessment and Plan: gi r/t hemolytic anemia Status: Acute jaundice-gi r/t anemia pendign heme/onc clearance for dc
[2018-07-07 06:57] LABS: BASO # 0.1 K/uL (0.0-0.2); BASO % 0.5 % (0.0-2.0); EOS # 0.2 K/uL (0.0-0.7); EOS % 1.5 % (0.0-4.0); HEMOGLOBIN 6.6 g/dL (12.0-16.0); LYMPH # 2.6 K/uL (1.0-4.3); LYMPH % 17.6 % (20.0-40.0); MEAN CELL VOLUME 106.1 fl (81.0-99.0); MEAN CORPUSCULAR HEMOGLOBIN 34.9 pg (27.0-31.0); MEAN CORPUSCULAR HGB CONC 32.9 g/dL (33.0-37.0); MEAN PLATELET VOLUME 7.6 fl (7.2-11.7); MONO # 0.5 K/uL (0.0-0.8); MONO % 3.7 % (0.0-10.0); NEUT # 11.3 K/uL (1.8-7.0); NEUT % 76.7 % (50.0-75.0); NRBC % 0.1 % (0.0-0.0); RBC 1.89 Mil/uL (3.80-5.20); WHITE BLOOD COUNT 14.8 K/uL (4.8-10.8)
[2018-07-07 07:18] LABS: ALBUMIN 3.2 g/dL (3.5-5.0); BLOOD UREA NITROGEN 13 mg/dl (7-17); CALCIUM 8.4 mg/dL (8.4-10.2); GFR NON-AFRICAN AMERICAN > 60
[2018-07-07 07:19] LABS: ALT/SGPT 65 U/L (9-52); AST/SGOT 45 U/L (14-36)
[2018-07-07] MEDS: Naproxen 500 MG TAB PO SCH (09:34)
[2018-07-08 05:47] LABS: BASO # 0.2 K/uL (0.0-0.2); BASO % 1.3 % (0.0-2.0); EOS # 0.4 K/uL (0.0-0.7); EOS % 2.5 % (0.0-4.0); LYMPH # 3.2 K/uL (1.0-4.3); LYMPH % 22.4 % (20.0-40.0); MEAN CELL VOLUME 106.5 fl (81.0-99.0); MEAN CORPUSCULAR HEMOGLOBIN 35.4 pg (27.0-31.0); MEAN CORPUSCULAR HGB CONC 33.2 g/dL (33.0-37.0); MEAN PLATELET VOLUME 7.6 fl (7.2-11.7); MONO # 0.6 K/uL (0.0-0.8); MONO % 4.5 % (0.0-10.0); NEUT # 9.8 K/uL (1.8-7.0); NEUT % 69.3 % (50.0-75.0); NRBC % 0.2 % (0.0-0.0); RBC 1.66 Mil/uL (3.80-5.20); RED CELL DISTRIBUTION WIDTH 31.3 % (11.5-14.5); WHITE BLOOD COUNT 14.2 K/uL (4.8-10.8)
[2018-07-08 05:56] LABS: HEMOGLOBIN 5.9 g/dL (12.0-16.0)
[2018-07-08 06:16] LABS: ALBUMIN 3.2 g/dL (3.5-5.0); ALT/SGPT 67 U/L (9-52); AST/SGOT 47 U/L (14-36); BLOOD UREA NITROGEN 17 mg/dl (7-17); CALCIUM 8.3 mg/dL (8.4-10.2); GFR NON-AFRICAN AMERICAN > 60
[2018-07-08] MEDS: Naproxen 500 MG TAB PO SCH (08:41)
[2018-07-08 08:48] VITALS: BMI 34.5
[2018-07-08] MEDS ORDERED: Dexamethasone 10 MG in Sodium Chloride 0.9% 50 ML IVPB ONE (08:51)
[2018-07-08] MEDS ORDERED: RITUXIMAB IV ONE (09:30)
[2018-07-08] MEDS ORDERED: DiphenhydrAMINE 50 mg/ml Inj IVP ONE (09:30)
[2018-07-08] MEDS ORDERED: SODIUM CHLORIDE 0.9% IV ONE (09:30)
--- NOTE | 2018-07-08 09:44 | CP.PCM.PN ---
Subjective - Date & Time of Evaluation Date of Evaluation: 07/08/18 Time of Evaluation: 09:39 - Subjective Subjective: Today pt's hgb is only 5.9gms. Will give her 2 units of packed dells and rituxinab. Her LFT have been stable, but the LDH and bilirubin has increased. Will monitor. Objective - Vital Signs/Intake and Output Vital Signs (last 24 hours): Temp Pulse Resp BP Pulse Ox 98.9 F 109 H 18 99/67 L 97 07/08/18 08:00 07/08/18 08:00 07/08/18 08:00 07/08/18 08:00 07/08/18 08:00 - Medications Medications: Current Medications Famotidine (Pepcid) 20 mg IVP Q12 [facility] Gabapentin (Neurontin) 600 mg PO HS [facility] Last Admin: 07/07/18 21:17 Dose: 600 mg Hydrocortisone (Cortef) 20 mg PO DAILY [facility] Stop: 07/11/18 09:00 Rituximab 785 mg/ Sodium (Chloride) 328.5 mls @ 54.75 mls/hr IV ONCE ONE Stop: 07/08/18 15:29 Methimazole (Tapazole) 10 mg PO BID [facility] Last Admin: 07/08/18 08:43 Dose: 10 mg Naproxen (Naproxen) 500 mg PO DAILY [facility] Last Admin: 07/08/18 08:41 Dose: 500 mg - Labs Labs: 07/08/18 04:30 07/08/18 04:30 PT 12.2 Seconds (9.8-13.1) 07/04/18 16:48 INR 1.1 07/04/18 16:48 APTT 22.0 Seconds (25.6-37.1) L 07/04/18 16:48
--- NOTE | 2018-07-08 11:16 | CP.PCM.PN ---
Subjective - Date & Time of Evaluation Date of Evaluation: 07/08/18 Time of Evaluation: 11:14 - Subjective Subjective: pt c/o maliase, myalgias. no fc/, n/v/d .worsened jaundice and decr h/h noted. for further transfusions as per dr stacy terry Objective - Vital Signs/Intake and Output Vital Signs (last 24 hours): Temp Pulse Resp BP Pulse Ox 98.9 F 109 H 18 99/67 L 97 07/08/18 08:00 07/08/18 08:00 07/08/18 08:00 07/08/18 08:00 07/08/18 08:00 - Medications Medications: Current Medications Famotidine (Pepcid) 20 mg IVP Q12 [facility] Last Admin: 07/08/18 11:03 Dose: 20 mg Gabapentin (Neurontin) 600 mg PO HS [facility] Last Admin: 07/07/18 21:17 Dose: 600 mg Hydrocortisone (Cortef) 20 mg PO DAILY [facility] Stop: 07/11/18 09:00 Rituximab 785 mg/ Sodium (Chloride) 328.5 mls @ 54.75 mls/hr IV ONCE ONE Stop: 07/08/18 15:29 Ondansetron HCl 16 mg/ Sodium (Chloride) 58 mls @ 116 mls/hr IVPB ONCE ONE Stop: 07/08/18 11:44 Methimazole (Tapazole) 10 mg PO BID [facility] Last Admin: 07/08/18 08:43 Dose: 10 mg Naproxen (Naproxen) 500 mg PO DAILY [facility] Last Admin: 07/08/18 08:41 Dose: 500 mg - Labs Labs: 07/08/18 04:30 07/08/18 04:30 PT 12.2 Seconds (9.8-13.1) 07/04/18 16:48 INR 1.1 07/04/18 16:48 APTT 22.0 Seconds (25.6-37.1) L 07/04/18 16:48 - Constitutional Appears: Well, Non-toxic, No Acute Distress - Head Exam Head Exam: ATRAUMATIC, NORMAL INSPECTION, NORMOCEPHALIC - Eye Exam Eye Exam: EOMI, Normal appearance, PERRL Pupil Exam: NORMAL ACCOMODATION, PERRL - ENT Exam ENT Exam: Mucous Membranes Moist, Normal Exam - Neck Exam Neck Exam: Full ROM, Normal Inspection. absent: Lymphadenopathy - Respiratory Exam Respiratory Exam: Clear to Ausculation Bilateral, NORMAL BREATHING PATTERN - Cardiovascular Exam Cardiovascular Exam: REGULAR RHYTHM, RRR, +S1, +S2. absent: Murmur - GI/Abdominal Exam GI & Abdominal Exam: Soft, Normal Bowel Sounds. absent: Tenderness - Exam Bimanual exam: NORMAL BIMANUAL EXAM - Extremities Exam Extremities Exam: Full ROM, Normal Capillary Refill, Normal Inspection. absent: Joint Swelling, Pedal Edema - Back Exam Back Exam: NORMAL INSPECTION - Neurological Exam Neurological Exam: Alert, Awake, CN II-XII Intact, Normal Gait, Oriented x3 - Psychiatric Exam Psychiatric exam: Normal Affect, Normal Mood - Skin Skin Exam: Dry, Intact, Normal Color, Warm Additional comments: luis enrique Assessment and Plan (1) DVT prophylaxis Assessment & Plan: scd nad ae hose hold anticoag r/t anemia/itp Status: Acute (2) Hemolytic anemia Assessment & Plan: heme/onc s/p2 nits prbc, further 2 nits today rituxam Status: Acute (3) Hyperthyroidism Assessment & Plan: cont home meds Status: Acute (4) ITP (idiopathic thrombocytopenic purpura) Assessment & Plan: heme/onc Status: Acute (5) Elevated LFTs Assessment & Plan: gi likely r/t hemolytic anemia Status: Acute - Assessment and Plan (Free Text) Assessment: malaise/myalgias-?? infection vs anemia. will monitor
[2018-07-08] MEDS ORDERED: MethylPREDNISolone 40 mg Vial IVP ONE (23:00)
[2018-07-08] MEDS ORDERED: methylPREDNISolone 40 MG in Sodium Chloride 0.9% 50 ML IVP ONE (23:00)
[2018-07-09 05:56] LABS: HEMOGLOBIN 7.9 g/dL (12.0-16.0); MEAN CELL VOLUME 98.9 fl (81.0-99.0); MEAN CORPUSCULAR HEMOGLOBIN 33.5 pg (27.0-31.0); MEAN CORPUSCULAR HGB CONC 33.8 g/dL (33.0-37.0); RBC 2.36 Mil/uL (3.80-5.20); RED CELL DISTRIBUTION WIDTH 23.6 % (11.5-14.5); WHITE BLOOD COUNT 21.6 K/uL (4.8-10.8)
[2018-07-09 06:07] LABS: BLOOD UREA NITROGEN 19 mg/dl (7-17); CALCIUM 8.9 mg/dL (8.4-10.2); GFR NON-AFRICAN AMERICAN > 60
--- NOTE | 2018-07-09 08:34 | CP.PCM.PN ---
Subjective - Date & Time of Evaluation Date of Evaluation: 07/09/18 Time of Evaluation: 08:31 - Subjective Subjective: Pt is feeling much better, less tired and no shortness of breath,Tolerated the rituximab given yesterday. no side effects seen.Will check the cbc tomorrow. Objective - Vital Signs/Intake and Output Vital Signs (last 24 hours): Temp Pulse Resp BP Pulse Ox 97.8 F 89 20 91/59 L 97 07/09/18 07:45 07/09/18 07:45 07/09/18 07:45 07/09/18 07:45 07/09/18 07:45 Intake and Output: 07/09/18 07/09/18 06:59 18:59 Intake Total 1750 Balance 1750 - Medications Medications: Current Medications Famotidine (Pepcid) 20 mg IVP Q12 [facility] Last Admin: 07/08/18 21:20 Dose: 20 mg Gabapentin (Neurontin) 600 mg PO HS [facility] Last Admin: 07/08/18 21:21 Dose: 600 mg Hydrocortisone (Cortef) 20 mg PO DAILY [facility] Stop: 07/11/18 09:00 Methimazole (Tapazole) 10 mg PO BID [facility] Last Admin: 07/08/18 16:37 Dose: 10 mg Naproxen (Naproxen) 500 mg PO DAILY [facility] Last Admin: 07/08/18 08:41 Dose: 500 mg - Labs Labs: 07/09/18 04:25 07/09/18 04:25 PT 12.2 Seconds (9.8-13.1) 07/04/18 16:48 INR 1.1 07/04/18 16:48 APTT 22.0 Seconds (25.6-37.1) L 07/04/18 16:48
--- NOTE | 2018-07-09 09:09 | CP.PCM.PN ---
Subjective - Date & Time of Evaluation Date of Evaluation: 07/09/18 Time of Evaluation: 09:08 - Subjective Subjective: no overnight events Objective - Vital Signs/Intake and Output Vital Signs (last 24 hours): Temp Pulse Resp BP Pulse Ox 97.8 F 89 20 91/59 L 97 07/09/18 07:45 07/09/18 07:45 07/09/18 07:45 07/09/18 07:45 07/09/18 07:45 Intake and Output: 07/09/18 07/09/18 06:59 18:59 Intake Total 1750 Balance 1750 - Medications Medications: Current Medications Famotidine (Pepcid) 20 mg IVP Q12 [facility] Last Admin: 07/08/18 21:20 Dose: 20 mg Gabapentin (Neurontin) 600 mg PO HS [facility] Last Admin: 07/08/18 21:21 Dose: 600 mg Hydrocortisone (Cortef) 20 mg PO DAILY [facility] Stop: 07/11/18 09:00 Methimazole (Tapazole) 10 mg PO BID [facility] Last Admin: 07/08/18 16:37 Dose: 10 mg Naproxen (Naproxen) 500 mg PO DAILY [facility] Last Admin: 07/08/18 08:41 Dose: 500 mg - Labs Labs: 07/09/18 04:25 07/09/18 04:25 PT 12.2 Seconds (9.8-13.1) 07/04/18 16:48 INR 1.1 07/04/18 16:48 APTT 22.0 Seconds (25.6-37.1) L 07/04/18 16:48 - Head Exam Head Exam: NORMOCEPHALIC - Eye Exam Eye Exam: Scleral icterus - Neck Exam Neck Exam: Normal Inspection - Respiratory Exam Respiratory Exam: Clear to Ausculation Bilateral, NORMAL BREATHING PATTERN - Cardiovascular Exam Cardiovascular Exam: REGULAR RHYTHM - GI/Abdominal Exam GI & Abdominal Exam: Soft, Normal Bowel Sounds Assessment and Plan - Assessment and Plan (Free Text) Assessment: 37 yo female with hemolytic anemia less jaundice hgb improving dc planning once able
[2018-07-09] MEDS: Naproxen 500 MG TAB PO SCH (10:20)
--- NOTE | 2018-07-09 12:32 | CP.PCM.PN ---
Subjective - Date & Time of Evaluation Date of Evaluation: 07/09/18 Time of Evaluation: 12:31 - Subjective Subjective: pt doing well w/o complaints. feels that complaints from yesterday r/t anemia. no f/c, n/v/d. bw noted case d/c w/ dr terry who ordered am labs for tomorrow. ?? dc in am Objective - Vital Signs/Intake and Output Vital Signs (last 24 hours): Temp Pulse Resp BP Pulse Ox 98.4 F 85 20 115/76 98 07/09/18 11:39 07/09/18 11:39 07/09/18 11:39 07/09/18 11:39 07/09/18 11:39 Intake and Output: 07/09/18 07/09/18 06:59 18:59 Intake Total 1750 Balance 1750 - Medications Medications: Current Medications Famotidine (Pepcid) 20 mg IVP Q12 [facility] Last Admin: 07/09/18 11:54 Dose: 20 mg Folic Acid (Folic Acid) 1 mg PO DAILY [facility] Gabapentin (Neurontin) 600 mg PO HS [facility] Last Admin: 07/08/18 21:21 Dose: 600 mg Hydrocortisone (Cortef) 20 mg PO DAILY [facility] Stop: 07/11/18 09:00 Last Admin: 07/09/18 10:21 Dose: 20 mg Methimazole (Tapazole) 10 mg PO BID [facility] Last Admin: 07/09/18 10:17 Dose: 10 mg Naproxen (Naproxen) 500 mg PO DAILY [facility] Last Admin: 07/09/18 10:20 Dose: 500 mg - Labs Labs: 07/09/18 04:25 07/09/18 04:25 PT 12.2 Seconds (9.8-13.1) 07/04/18 16:48 INR 1.1 07/04/18 16:48 APTT 22.0 Seconds (25.6-37.1) L 07/04/18 16:48 - Constitutional Appears: Well, Non-toxic, No Acute Distress - Head Exam Head Exam: ATRAUMATIC, NORMAL INSPECTION, NORMOCEPHALIC - Eye Exam Eye Exam: EOMI, Normal appearance, PERRL Pupil Exam: NORMAL ACCOMODATION, PERRL - ENT Exam ENT Exam: Mucous Membranes Moist, Normal Exam - Neck Exam Neck Exam: Full ROM, Normal Inspection. absent: Lymphadenopathy - Respiratory Exam Respiratory Exam: Clear to Ausculation Bilateral, NORMAL BREATHING PATTERN - Cardiovascular Exam Cardiovascular Exam: REGULAR RHYTHM, RRR, +S1, +S2. absent: Murmur - GI/Abdominal Exam GI & Abdominal Exam: Soft, Normal Bowel Sounds. absent: Tenderness - Extremities Exam Extremities Exam: Full ROM, Normal Capillary Refill, Normal Inspection. absent: Joint Swelling, Pedal Edema - Back Exam Back Exam: NORMAL INSPECTION - Neurological Exam Neurological Exam: Alert, Awake, CN II-XII Intact, Normal Gait, Oriented x3 - Psychiatric Exam Psychiatric exam: Normal Affect, Normal Mood - Skin Skin Exam: Dry, Intact, Warm Additional comments: still jaundiced but improving. Assessment and Plan (1) DVT prophylaxis Status: Acute (2) Hemolytic anemia Status: Acute (3) Hyperthyroidism Status: Acute (4) ITP (idiopathic thrombocytopenic purpura) Status: Acute (5) Elevated LFTs Status: Acute - Assessment and Plan (Free Text) Assessment: (1) DVT prophylaxis Assessment & Plan: scd nad ae hose hold anticoag r/t anemia/itp Status: Acute (2) Hemolytic anemia Assessment & Plan: heme/onc s/p2 nits prbc, further 2 nits yesterday rituxam Status: Acute (3) Hyperthyroidism Assessment & Plan: cont home meds Status: Acute (4) ITP (idiopathic thrombocytopenic purpura) Assessment & Plan: heme/onc Status: Acute (5) Elevated LFTs Assessment & Plan: gi likely r/t hemolytic anemia-improving Status: Acute malaise/myalgias resolved w/ transfusion
[2018-07-09 15:24] LABS: SQUAMOUS EPITHIAL 1 /hpf (0-5); URINE BILIRUBIN NEGATIVE (NEGATIVE); URINE BLOOD NEGATIVE (NEGATIVE); URINE CLARITY CLEAR (Clear); URINE COLOR YELLOW (YELLOW); URINE GLUCOSE (UA) NEG (NEGATIVE); URINE LEUKOCYTE ESTERASE NEG Leu/uL (Negative); URINE PROTEIN NEGATIVE (NEGATIVE)
[2018-07-09 19:27] LABS: BASO # 0.2 K/uL (0.0-0.2); BASO % 0.8 % (0.0-2.0); EOS # 0.1 K/uL (0.0-0.7); EOS % 0.5 % (0.0-4.0); HEMOGLOBIN 6.6 g/dL (12.0-16.0); LYMPH # 2.1 K/uL (1.0-4.3); LYMPH % 9.2 % (20.0-40.0); MEAN CELL VOLUME 98.1 fl (81.0-99.0); MEAN CORPUSCULAR HEMOGLOBIN 32.7 pg (27.0-31.0); MEAN CORPUSCULAR HGB CONC 33.4 g/dL (33.0-37.0); MEAN PLATELET VOLUME 7.7 fl (7.2-11.7); MONO # 0.9 K/uL (0.0-0.8); MONO % 3.9 % (0.0-10.0); NEUT # 19.9 K/uL (1.8-7.0); NEUT % 85.6 % (50.0-75.0); NRBC % 0.1 % (0.0-0.0); PLATELET COUNT 336 K/uL (130-400); RBC 2.01 Mil/uL (3.80-5.20); RED CELL DISTRIBUTION WIDTH 22.3 % (11.5-14.5); WHITE BLOOD COUNT 23.2 K/uL (4.8-10.8)
[2018-07-09 20:21] LABS: BANDS 1 % (0-2); EOSINOPHIL 1 % (0-7); LYMPHOCYTE 10 % (20-50); MONOCYTE 3 % (0-10); MYELOCYTE 1 % (0-0); NEUTROPHIL 84 % (42-75); TOTAL CELLS COUNTED 100
[2018-07-09 20:22] LABS: ANISOCYTOSIS MODERATE; PLATELET ESTIMATE NORMAL (NORMAL); POIKILOCYTOSIS SLIGHT
[2018-07-09 20:23] LABS: HYPOCHROMIC MODERATE; LARGE PLATELETS PRESENT; OVALOCYTES SLIGHT; POLYCHROMIC SLIGHT
[2018-07-09 20:25] LABS: TARGET CELLS SLIGHT
[2018-07-10 06:27] LABS: BASO # 0.2 K/uL (0.0-0.2); BASO % 1.1 % (0.0-2.0); EOS # 0.2 K/uL (0.0-0.7); EOS % 1.6 % (0.0-4.0); HEMOGLOBIN 6.6 g/dL (12.0-16.0); LYMPH # 1.6 K/uL (1.0-4.3); LYMPH % 10.1 % (20.0-40.0); MEAN CELL VOLUME 98.5 fl (81.0-99.0); MEAN CORPUSCULAR HEMOGLOBIN 33.8 pg (27.0-31.0); MEAN CORPUSCULAR HGB CONC 34.3 g/dL (33.0-37.0); MEAN PLATELET VOLUME 8.1 fl (7.2-11.7); MONO # 0.9 K/uL (0.0-0.8); MONO % 5.9 % (0.0-10.0); NEUT # 12.7 K/uL (1.8-7.0); NEUT % 81.3 % (50.0-75.0); RBC 1.94 Mil/uL (3.80-5.20); RED CELL DISTRIBUTION WIDTH 20.4 % (11.5-14.5); WHITE BLOOD COUNT 15.6 K/uL (4.8-10.8)
--- NOTE | 2018-07-10 06:31 | CP.PCM.PN ---
Subjective - Date & Time of Evaluation Date of Evaluation: 07/10/18 Time of Evaluation: 06:30 - Subjective Subjective: pt doing well woncomplaints no fcnvd bw noted pending heme/onc clearance for dc Objective - Vital Signs/Intake and Output Vital Signs (last 24 hours): Temp Pulse Resp BP Pulse Ox 97.7 F 88 20 88/55 L 100 07/10/18 04:49 07/10/18 04:49 07/10/18 04:49 07/10/18 04:49 07/10/18 04:49 - Medications Medications: Current Medications Famotidine (Pepcid) 20 mg IVP Q12 [facility] Last Admin: 07/09/18 21:47 Dose: 20 mg Folic Acid (Folic Acid) 1 mg PO DAILY [facility] Gabapentin (Neurontin) 600 mg PO HS [facility] Last Admin: 07/09/18 21:47 Dose: 600 mg Hydrocortisone (Cortef) 20 mg PO DAILY [facility] Stop: 07/11/18 09:00 Last Admin: 07/09/18 10:21 Dose: 20 mg Methimazole (Tapazole) 10 mg PO BID [facility] Last Admin: 07/09/18 17:13 Dose: 10 mg Naproxen (Naproxen) 500 mg PO DAILY [facility] Last Admin: 07/09/18 10:20 Dose: 500 mg - Labs Labs: 07/09/18 19:21 07/09/18 04:25 PT 12.2 Seconds (9.8-13.1) 07/04/18 16:48 INR 1.1 07/04/18 16:48 APTT 22.0 Seconds (25.6-37.1) L 07/04/18 16:48 - Constitutional Appears: Well, Non-toxic, No Acute Distress - Head Exam Head Exam: ATRAUMATIC, NORMAL INSPECTION, NORMOCEPHALIC - Eye Exam Eye Exam: EOMI, Normal appearance, PERRL Pupil Exam: NORMAL ACCOMODATION, PERRL - ENT Exam ENT Exam: Mucous Membranes Moist, Normal Exam - Neck Exam Neck Exam: Full ROM, Normal Inspection. absent: Lymphadenopathy - Respiratory Exam Respiratory Exam: Clear to Ausculation Bilateral, NORMAL BREATHING PATTERN - Cardiovascular Exam Cardiovascular Exam: REGULAR RHYTHM, RRR, +S1, +S2. absent: Murmur - GI/Abdominal Exam GI & Abdominal Exam: Soft, Normal Bowel Sounds. absent: Tenderness - Extremities Exam Extremities Exam: Full ROM, Normal Capillary Refill, Normal Inspection. absent: Joint Swelling, Pedal Edema - Back Exam Back Exam: NORMAL INSPECTION - Neurological Exam Neurological Exam: Alert, Awake, CN II-XII Intact, Normal Gait, Oriented x3 - Psychiatric Exam Psychiatric exam: Normal Affect, Normal Mood - Skin Skin Exam: Dry, Intact, Normal Color, Warm Assessment and Plan (1) DVT prophylaxis Status: Acute (2) Hemolytic anemia Status: Acute (3) Hyperthyroidism Status: Acute (4) ITP (idiopathic thrombocytopenic purpura) Status: Acute (5) Elevated LFTs Status: Acute - Assessment and Plan (Free Text) Assessment: (1) DVT prophylaxis Assessment & Plan: scd nad ae hose hold anticoag r/t anemia/itp Status: Acute (2) Hemolytic anemia Assessment & Plan: heme/onc s/p2 nits prbc, further 2 units cbc in am prior to dc rituxam Status: Acute (3) Hyperthyroidism Assessment & Plan: cont home meds Status: Acute (4) ITP (idiopathic thrombocytopenic purpura) Assessment & Plan: heme/onc Status: Acute (5) Elevated LFTs Assessment & Plan: gi likely r/t hemolytic anemia-improving Status: Acute malaise/myalgias resolved w/ transfusion
[2018-07-10 06:40] LABS: ALBUMIN 3.4 g/dL (3.5-5.0); ALT/SGPT 76 U/L (9-52); AST/SGOT 46 U/L (14-36); BLOOD UREA NITROGEN 20 mg/dl (7-17); CALCIUM 8.6 mg/dL (8.4-10.2); GFR NON-AFRICAN AMERICAN > 60
[2018-07-10] MEDS: Naproxen 500 MG TAB PO SCH (08:49)
--- NOTE | 2018-07-10 09:26 | CP.PCM.PN ---
Subjective - Date & Time of Evaluation Date of Evaluation: 07/10/18 Time of Evaluation: 09:24 - Subjective Subjective: pT IS FEELING BETTER. hER HGBIS THE SAME YESTERDAY AND THE BILIRUBIN IS LOWER. HOPEFULLY SHE IS RESPONDING TO THE RITUXIMAB. iF THINGS RMAIN STABLE, WILL GIVE ANOTHER DOSE OF THE RITUXIMAB AN OUTPATIENT ON SUNDAY. Objective - Vital Signs/Intake and Output Vital Signs (last 24 hours): Temp Pulse Resp BP Pulse Ox 98.2 F 78 20 95/62 L 98 07/10/18 08:24 07/10/18 08:24 07/10/18 08:24 07/10/18 08:24 07/10/18 08:24 - Medications Medications: Current Medications Famotidine (Pepcid) 20 mg IVP Q12 [facility] Last Admin: 07/09/18 21:47 Dose: 20 mg Folic Acid (Folic Acid) 1 mg PO DAILY [facility] Last Admin: 07/10/18 08:49 Dose: 1 mg Gabapentin (Neurontin) 600 mg PO HS [facility] Last Admin: 07/09/18 21:47 Dose: 600 mg Hydrocortisone (Cortef) 20 mg PO DAILY [facility] Stop: 07/11/18 09:00 Last Admin: 07/10/18 08:49 Dose: 20 mg Methimazole (Tapazole) 10 mg PO BID [facility] Last Admin: 07/10/18 08:50 Dose: 10 mg Naproxen (Naproxen) 500 mg PO DAILY [facility] Last Admin: 07/10/18 08:49 Dose: 500 mg - Labs Labs: 07/10/18 04:30 07/10/18 04:30 PT 12.2 Seconds (9.8-13.1) 07/04/18 16:48 INR 1.1 07/04/18 16:48 APTT 22.0 Seconds (25.6-37.1) L 07/04/18 16:48
--- NOTE | 2018-07-10 16:27 | CP.PCM.PN ---
Subjective - Date & Time of Evaluation Date of Evaluation: 07/10/18 Time of Evaluation: 16:26 - Subjective Subjective: no overnight events Objective - Vital Signs/Intake and Output Vital Signs (last 24 hours): Temp Pulse Resp BP Pulse Ox 98.2 F 85 16 95/55 L 97 07/10/18 15:57 07/10/18 15:57 07/10/18 15:57 07/10/18 15:57 07/10/18 15:57 - Medications Medications: Current Medications Famotidine (Pepcid) 20 mg IVP Q12 [facility] Last Admin: 07/10/18 12:53 Dose: 20 mg Folic Acid (Folic Acid) 1 mg PO DAILY [facility] Last Admin: 07/10/18 08:49 Dose: 1 mg Gabapentin (Neurontin) 600 mg PO HS [facility] Last Admin: 07/09/18 21:47 Dose: 600 mg Hydrocortisone (Cortef) 20 mg PO DAILY [facility] Stop: 07/11/18 09:00 Last Admin: 07/10/18 08:49 Dose: 20 mg Methimazole (Tapazole) 10 mg PO BID [facility] Last Admin: 07/10/18 08:50 Dose: 10 mg Naproxen (Naproxen) 500 mg PO DAILY [facility] Last Admin: 07/10/18 08:49 Dose: 500 mg - Labs Labs: 07/10/18 04:30 07/10/18 04:30 PT 12.2 Seconds (9.8-13.1) 07/04/18 16:48 INR 1.1 07/04/18 16:48 APTT 22.0 Seconds (25.6-37.1) L 07/04/18 16:48 - Neck Exam Neck Exam: Normal Inspection - Respiratory Exam Respiratory Exam: Clear to Ausculation Bilateral, NORMAL BREATHING PATTERN - Cardiovascular Exam Cardiovascular Exam: REGULAR RHYTHM - GI/Abdominal Exam GI & Abdominal Exam: Soft, Normal Bowel Sounds Assessment and Plan - Assessment and Plan (Free Text) Assessment: 37 yo female with anemia no gi issues dc planning
[2018-07-11 06:39] LABS: BASO # 0.1 K/uL (0.0-0.2); BASO % 0.8 % (0.0-2.0); EOS # 0.4 K/uL (0.0-0.7); LYMPH # 1.5 K/uL (1.0-4.3); LYMPH % 12.1 % (20.0-40.0); MEAN CELL VOLUME 96.5 fl (81.0-99.0); MEAN CORPUSCULAR HEMOGLOBIN 32.8 pg (27.0-31.0); MEAN PLATELET VOLUME 8.1 fl (7.2-11.7); MONO # 0.8 K/uL (0.0-0.8); MONO % 6.2 % (0.0-10.0); NEUT # 9.9 K/uL (1.8-7.0); NEUT % 77.9 % (50.0-75.0); NRBC % 0.6 % (0.0-0.0); RBC 1.71 Mil/uL (3.80-5.20); RED CELL DISTRIBUTION WIDTH 15.6 % (11.5-14.5); WHITE BLOOD COUNT 12.7 K/uL (4.8-10.8)
[2018-07-11 06:41] LABS: HEMOGLOBIN 5.6 g/dL (12.0-16.0)
[2018-07-11 06:54] LABS: ALB/GLOB RATIO 1.1 (1.0-2.1); ALBUMIN 3.4 g/dL (3.5-5.0); ALT/SGPT 76 U/L (9-52); AST/SGOT 59 U/L (14-36); BLOOD UREA NITROGEN 22 mg/dl (7-17); CALCIUM 8.2 mg/dL (8.4-10.2); GFR NON-AFRICAN AMERICAN > 60
[2018-07-11] MEDS ORDERED: DiphenhydrAMINE 50 mg/ml Inj IVP STA (07:45)
[2018-07-11] MEDS: Naproxen 500 MG TAB PO SCH (08:21)
[2018-07-11] MEDS ORDERED: methylPREDNISolone 40 MG in Sodium Chloride 0.9% 50 ML IVPB ONE (09:00)
[2018-07-11] MEDS ORDERED: MethylPREDNISolone 40 mg Vial IVP ONE (09:00)
--- NOTE | 2018-07-11 10:11 | CP.PCM.PN ---
Subjective - Date & Time of Evaluation Date of Evaluation: 07/11/18 Time of Evaluation: 10:10 - Subjective Subjective: Pt's hgb again dropped to 5.6gms and she has a headache. She received the rituxan on sunday and will receive the medication q weekly. However until the rituxan begins to act, the hydrocortisone should be at least at TID. Will also transfuse 2 unitys of packed cells today Objective - Vital Signs/Intake and Output Vital Signs (last 24 hours): Temp Pulse Resp BP Pulse Ox 98.8 F 109 H 20 94/59 L 100 07/11/18 08:34 07/11/18 08:34 07/11/18 08:34 07/11/18 08:34 07/11/18 08:34 - Medications Medications: Current Medications Famotidine (Pepcid) 20 mg IVP Q12 [facility] Last Admin: 07/10/18 21:32 Dose: 20 mg Folic Acid (Folic Acid) 1 mg PO DAILY [facility] Last Admin: 07/11/18 08:21 Dose: 1 mg Gabapentin (Neurontin) 600 mg PO HS [facility] Last Admin: 07/10/18 21:32 Dose: 600 mg Hydrocortisone (Cortef) 20 mg PO TID [facility] Last Admin: 07/11/18 08:21 Dose: 20 mg Methimazole (Tapazole) 10 mg PO BID [facility] Last Admin: 07/10/18 17:59 Dose: 10 mg Naproxen (Naproxen) 500 mg PO DAILY [facility] Last Admin: 07/11/18 08:21 Dose: 500 mg - Labs Labs: 07/11/18 05:25 07/11/18 05:25 PT 12.2 Seconds (9.8-13.1) 07/04/18 16:48 INR 1.1 07/04/18 16:48 APTT 22.0 Seconds (25.6-37.1) L 07/04/18 16:48
--- NOTE | 2018-07-11 10:34 | CP.PCM.PN ---
Subjective - Date & Time of Evaluation Date of Evaluation: 07/11/18 Time of Evaluation: 10:33 - Subjective Subjective: pt still w/ jaundice. no complaints. bw noted. seen at bedside w/ dr stacy terry no distress. for 2 units prbc today. steroid dose adjusted by dr terry Objective - Vital Signs/Intake and Output Vital Signs (last 24 hours): Temp Pulse Resp BP Pulse Ox 98.8 F 109 H 20 94/59 L 100 07/11/18 08:34 07/11/18 08:34 07/11/18 08:34 07/11/18 08:34 07/11/18 08:34 - Medications Medications: Current Medications Famotidine (Pepcid) 20 mg IVP Q12 [facility] Last Admin: 07/10/18 21:32 Dose: 20 mg Folic Acid (Folic Acid) 1 mg PO DAILY [facility] Last Admin: 07/11/18 08:21 Dose: 1 mg Gabapentin (Neurontin) 600 mg PO HS [facility] Last Admin: 07/10/18 21:32 Dose: 600 mg Hydrocortisone (Cortef) 20 mg PO TID [facility] Last Admin: 07/11/18 08:21 Dose: 20 mg Methimazole (Tapazole) 10 mg PO BID [facility] Last Admin: 07/10/18 17:59 Dose: 10 mg Naproxen (Naproxen) 500 mg PO DAILY [facility] Last Admin: 07/11/18 08:21 Dose: 500 mg - Labs Labs: 07/11/18 05:25 07/11/18 05:25 PT 12.2 Seconds (9.8-13.1) 07/04/18 16:48 INR 1.1 07/04/18 16:48 APTT 22.0 Seconds (25.6-37.1) L 07/04/18 16:48 - Constitutional Appears: Well, Non-toxic, No Acute Distress - Head Exam Head Exam: ATRAUMATIC, NORMAL INSPECTION, NORMOCEPHALIC - Eye Exam Eye Exam: EOMI, Normal appearance, PERRL Pupil Exam: NORMAL ACCOMODATION, PERRL - ENT Exam ENT Exam: Mucous Membranes Moist, Normal Exam - Neck Exam Neck Exam: Full ROM, Normal Inspection. absent: Lymphadenopathy - Respiratory Exam Respiratory Exam: Clear to Ausculation Bilateral, NORMAL BREATHING PATTERN - Cardiovascular Exam Cardiovascular Exam: REGULAR RHYTHM, RRR, +S1, +S2. absent: Murmur - GI/Abdominal Exam GI & Abdominal Exam: Soft, Normal Bowel Sounds. absent: Tenderness - Extremities Exam Extremities Exam: Full ROM, Normal Capillary Refill, Normal Inspection. absent: Joint Swelling, Pedal Edema - Back Exam Back Exam: NORMAL INSPECTION - Neurological Exam Neurological Exam: Alert, Awake, CN II-XII Intact, Normal Gait, Oriented x3 - Psychiatric Exam Psychiatric exam: Normal Affect, Normal Mood - Skin Skin Exam: Dry, Intact, Normal Color, Warm Assessment and Plan (1) DVT prophylaxis Status: Acute (2) Hemolytic anemia Status: Acute (3) Hyperthyroidism Status: Acute (4) ITP (idiopathic thrombocytopenic purpura) Status: Acute (5) Elevated LFTs Status: Acute - Assessment and Plan (Free Text) Assessment: (1) DVT prophylaxis Assessment & Plan: scd nad ae hose hold anticoag r/t anemia/itp Status: Acute (2) Hemolytic anemia Assessment & Plan: heme/onc s/p2 nits prbc, further 2 nits today steroids as per dr harrison francois Status: Acute (3) Hyperthyroidism Assessment & Plan: cont home meds Status: Acute (4) ITP (idiopathic thrombocytopenic purpura) Assessment & Plan: heme/onc Status: Acute (5) Elevated LFTs Assessment & Plan: gi likely r/t hemolytic anemia Status: Acute malaise/myalgias resolved w/ transfusion
[2018-07-12 08:12] LABS: ALB/GLOB RATIO 1.1 (1.0-2.1); ALBUMIN 3.5 g/dL (3.5-5.0); ALT/SGPT 108 U/L (9-52); AST/SGOT 65 U/L (14-36); BLOOD UREA NITROGEN 17 mg/dl (7-17); CALCIUM 8.4 mg/dL (8.4-10.2); GFR NON-AFRICAN AMERICAN > 60
[2018-07-12 08:24] LABS: BASO # 0.1 K/uL (0.0-0.2); BASO % 0.3 % (0.0-2.0); EOS # 0.1 K/uL (0.0-0.7); EOS % 0.5 % (0.0-4.0); HEMOGLOBIN 6.6 g/dL (12.0-16.0); LYMPH # 1.6 K/uL (1.0-4.3); LYMPH % 9.6 % (20.0-40.0); MEAN CELL VOLUME 91.7 fl (81.0-99.0); MEAN CORPUSCULAR HEMOGLOBIN 30.7 pg (27.0-31.0); MEAN CORPUSCULAR HGB CONC 33.5 g/dL (33.0-37.0); MEAN PLATELET VOLUME 8.2 fl (7.2-11.7); MONO % 6.1 % (0.0-10.0); NEUT # 14.2 K/uL (1.8-7.0); NEUT % 83.5 % (50.0-75.0); NRBC % 0.2 % (0.0-0.0); RBC 2.16 Mil/uL (3.80-5.20); RED CELL DISTRIBUTION WIDTH 15.3 % (11.5-14.5)
--- NOTE | 2018-07-12 09:02 | CP.PCM.PN ---
Subjective - Date & Time of Evaluation Date of Evaluation: 07/12/18 Time of Evaluation: 08:59 - Subjective Subjective: Todays hgb is 6.6 gms. The retic count is not available. P5t 's headache is also lesser,and less frequent. The chemistries qare not yet available. Will keep the hydrocortisone and will give rituxan on sunday morning. Objective - Vital Signs/Intake and Output Vital Signs (last 24 hours): Temp Pulse Resp BP Pulse Ox 98.5 F 81 20 96/62 L 99 07/12/18 08:41 07/12/18 08:41 07/12/18 08:41 07/12/18 08:41 07/12/18 08:41 Intake and Output: 07/12/18 07/12/18 06:59 18:59 Intake Total 375 Balance 375 - Medications Medications: Current Medications Famotidine (Pepcid) 20 mg IVP Q12 [facility] Last Admin: 07/11/18 22:00 Dose: 20 mg Folic Acid (Folic Acid) 1 mg PO DAILY [facility] Last Admin: 07/11/18 08:21 Dose: 1 mg Gabapentin (Neurontin) 600 mg PO HS [facility] Last Admin: 07/11/18 21:57 Dose: 600 mg Hydrocortisone (Cortef) 20 mg PO TID [facility] Last Admin: 07/11/18 17:09 Dose: 20 mg Methimazole (Tapazole) 10 mg PO BID [facility] Last Admin: 07/11/18 17:08 Dose: 10 mg Naproxen (Naproxen) 500 mg PO DAILY [facility] Last Admin: 07/11/18 08:21 Dose: 500 mg - Labs Labs: 07/12/18 07:38 07/12/18 07:38 PT 12.2 Seconds (9.8-13.1) 07/04/18 16:48 INR 1.1 07/04/18 16:48 APTT 22.0 Seconds (25.6-37.1) L 07/04/18 16:48
[2018-07-12] MEDS: Naproxen 500 MG TAB PO SCH (09:57)
[2018-07-12] MEDS ORDERED: Lactulose 10 gm/15 ml Syrup PO PRN (11:40)
--- NOTE | 2018-07-12 12:11 | CP.PCM.PN ---
Subjective - Date & Time of Evaluation Date of Evaluation: 07/12/18 Time of Evaluation: 12:10 - Subjective Subjective: pt doing well. no f/c, n/v/d. c/o constipation. still jaundice but improved not cleared for dc by dr terry. am labs ordered Objective - Vital Signs/Intake and Output Vital Signs (last 24 hours): Temp Pulse Resp BP Pulse Ox 98.5 F 81 20 96/62 L 99 07/12/18 09:00 07/12/18 09:00 07/12/18 09:00 07/12/18 09:00 07/12/18 08:41 Intake and Output: 07/12/18 07/12/18 06:59 18:59 Intake Total 375 Balance 375 - Medications Medications: Current Medications Docusate Sodium (Colace) 200 mg PO DAILY [facility] Last Admin: 07/12/18 11:57 Dose: 200 mg Famotidine (Pepcid) 20 mg IVP Q12 [facility] Last Admin: 07/11/18 22:00 Dose: 20 mg Folic Acid (Folic Acid) 1 mg PO DAILY [facility] Last Admin: 07/12/18 09:58 Dose: 1 mg Gabapentin (Neurontin) 600 mg PO HS [facility] Last Admin: 07/11/18 21:57 Dose: 600 mg Hydrocortisone (Cortef) 20 mg PO TID [facility] Last Admin: 07/12/18 09:56 Dose: 20 mg Lactulose (Enulose) 10 gm PO DAILY PRN PRN Reason: Constipation Methimazole (Tapazole) 10 mg PO BID [facility] Last Admin: 07/12/18 09:56 Dose: 10 mg Naproxen (Naproxen) 500 mg PO DAILY [facility] Last Admin: 07/12/18 09:57 Dose: 500 mg - Labs Labs: 07/12/18 07:38 07/12/18 07:38 PT 12.2 Seconds (9.8-13.1) 07/04/18 16:48 INR 1.1 07/04/18 16:48 APTT 22.0 Seconds (25.6-37.1) L 07/04/18 16:48 - Constitutional Appears: Well, Non-toxic, No Acute Distress - Head Exam Head Exam: ATRAUMATIC, NORMAL INSPECTION, NORMOCEPHALIC - Eye Exam Eye Exam: EOMI, Normal appearance, PERRL Pupil Exam: NORMAL ACCOMODATION, PERRL - ENT Exam ENT Exam: Mucous Membranes Moist, Normal Exam - Neck Exam Neck Exam: Full ROM, Normal Inspection. absent: Lymphadenopathy - Respiratory Exam Respiratory Exam: Clear to Ausculation Bilateral, NORMAL BREATHING PATTERN - Cardiovascular Exam Cardiovascular Exam: REGULAR RHYTHM, RRR, +S1, +S2. absent: Murmur - GI/Abdominal Exam GI & Abdominal Exam: Soft, Normal Bowel Sounds. absent: Tenderness - Extremities Exam Extremities Exam: Full ROM, Normal Capillary Refill, Normal Inspection. absent: Joint Swelling, Pedal Edema - Back Exam Back Exam: NORMAL INSPECTION - Neurological Exam Neurological Exam: Alert, Awake, CN II-XII Intact, Normal Gait, Oriented x3 - Psychiatric Exam Psychiatric exam: Normal Affect, Normal Mood - Skin Skin Exam: Dry, Intact, Normal Color, Warm Additional comments: jaundice Assessment and Plan (1) DVT prophylaxis Status: Acute (2) Hemolytic anemia Status: Acute (3) Hyperthyroidism Status: Acute (4) ITP (idiopathic thrombocytopenic purpura) Status: Acute (5) Elevated LFTs Status: Acute - Assessment and Plan (Free Text) Assessment: (1) DVT prophylaxis Assessment & Plan: scd and ae hose ambulation hold anticoag r/t itp/anemia Status: Acute (2) Hemolytic anemia Assessment & Plan: cont steroids heme/onc rituxan Status: Acute (3) Hyperthyroidism Assessment & Plan: methimazole Status: Acute (4) ITP (idiopathic thrombocytopenic purpura) Assessment & Plan: heme/onc steroids Status: Acute (5) Elevated LFTs Assessment & Plan: r/t hemolytic anemia GI Status: Acute
[2018-07-13 07:01] LABS: BASO # 0.1 K/uL (0.0-0.2); BASO % 0.7 % (0.0-2.0); EOS # 0.2 K/uL (0.0-0.7); EOS % 1.4 % (0.0-4.0); LYMPH # 1.6 K/uL (1.0-4.3); LYMPH % 11.9 % (20.0-40.0); MEAN CELL VOLUME 93.4 fl (81.0-99.0); MEAN CORPUSCULAR HEMOGLOBIN 32.1 pg (27.0-31.0); MEAN CORPUSCULAR HGB CONC 34.4 g/dL (33.0-37.0); MEAN PLATELET VOLUME 8.3 fl (7.2-11.7); MONO # 0.8 K/uL (0.0-0.8); MONO % 6.3 % (0.0-10.0); NEUT # 10.6 K/uL (1.8-7.0); NEUT % 79.7 % (50.0-75.0); NRBC % 0.1 % (0.0-0.0); RBC 1.85 Mil/uL (3.80-5.20); RED CELL DISTRIBUTION WIDTH 15.3 % (11.5-14.5); WHITE BLOOD COUNT 13.3 K/uL (4.8-10.8)
[2018-07-13 07:06] LABS: HEMOGLOBIN 5.9 g/dL (12.0-16.0)
[2018-07-13 07:20] LABS: ALB/GLOB RATIO 1.1 (1.0-2.1); ALBUMIN 3.4 g/dL (3.5-5.0); ALT/SGPT 95 U/L (9-52); AST/SGOT 54 U/L (14-36); BLOOD UREA NITROGEN 19 mg/dl (7-17); CALCIUM 8.5 mg/dL (8.4-10.2); GFR NON-AFRICAN AMERICAN > 60
--- NOTE | 2018-07-13 08:29 | CP.PCM.PN ---
Subjective - Date & Time of Evaluation Date of Evaluation: 07/13/18 Time of Evaluation: 08:27 - Subjective Subjective: pt doing well, still w/ jaundice. am labs noted. no f/c, n/v/d. no distress case d/c w/ dr stacy terry-heme/onc Objective - Vital Signs/Intake and Output Vital Signs (last 24 hours): Temp Pulse Resp BP Pulse Ox 97.8 F 78 20 115/71 95 07/13/18 08:19 07/13/18 08:19 07/13/18 08:19 07/13/18 08:19 07/13/18 08:19 - Medications Medications: Current Medications Docusate Sodium (Colace) 200 mg PO DAILY [facility] Last Admin: 07/12/18 11:57 Dose: 200 mg Famotidine (Pepcid) 20 mg PO Q12 [facility] Last Admin: 07/12/18 21:57 Dose: 20 mg Folic Acid (Folic Acid) 1 mg PO DAILY [facility] Last Admin: 07/12/18 09:58 Dose: 1 mg Gabapentin (Neurontin) 600 mg PO HS [facility] Last Admin: 07/12/18 21:57 Dose: 600 mg Hydrocortisone (Cortef) 20 mg PO TID [facility] Last Admin: 07/12/18 16:33 Dose: 20 mg Lactulose (Enulose) 10 gm PO DAILY PRN PRN Reason: Constipation Last Admin: 07/12/18 12:53 Dose: 10 gm Methimazole (Tapazole) 10 mg PO BID [facility] Last Admin: 07/12/18 16:33 Dose: 10 mg Naproxen (Naproxen) 500 mg PO DAILY [facility] Last Admin: 07/12/18 09:57 Dose: 500 mg - Labs Labs: 07/13/18 05:35 07/13/18 05:35 PT 12.2 Seconds (9.8-13.1) 07/04/18 16:48 INR 1.1 07/04/18 16:48 APTT 22.0 Seconds (25.6-37.1) L 07/04/18 16:48 - Constitutional Appears: Well, Non-toxic, No Acute Distress - Head Exam Head Exam: ATRAUMATIC, NORMAL INSPECTION, NORMOCEPHALIC - Eye Exam Eye Exam: EOMI, Normal appearance, PERRL Pupil Exam: NORMAL ACCOMODATION, PERRL - ENT Exam ENT Exam: Mucous Membranes Moist, Normal Exam - Neck Exam Neck Exam: Full ROM, Normal Inspection. absent: Lymphadenopathy - Respiratory Exam Respiratory Exam: Clear to Ausculation Bilateral, NORMAL BREATHING PATTERN - Cardiovascular Exam Cardiovascular Exam: REGULAR RHYTHM, RRR, +S1, +S2. absent: Murmur - GI/Abdominal Exam GI & Abdominal Exam: Soft, Normal Bowel Sounds. absent: Tenderness - Extremities Exam Extremities Exam: Full ROM, Normal Capillary Refill, Normal Inspection. absent: Joint Swelling, Pedal Edema - Back Exam Back Exam: NORMAL INSPECTION - Neurological Exam Neurological Exam: Alert, Awake, CN II-XII Intact, Normal Gait, Oriented x3 - Psychiatric Exam Psychiatric exam: Normal Affect, Normal Mood - Skin Skin Exam: Dry, Intact, Normal Color, Warm Additional comments: jaundice Assessment and Plan (1) DVT prophylaxis Assessment & Plan: scd and ae hose ambulation hold anticoag r/t itp/anemia Status: Acute (2) Hemolytic anemia Assessment & Plan: cont steroids heme/onc Status: Acute (3) Hyperthyroidism Assessment & Plan: methimazole Status: Acute (4) ITP (idiopathic thrombocytopenic purpura) Assessment & Plan: heme/onc steroids Status: Acute (5) Elevated LFTs Assessment & Plan: r/t hemolytic anemia GI Status: Acute
[2018-07-13] MEDS: Naproxen 500 MG TAB PO SCH (09:10)
[2018-07-13] MEDS ORDERED: DiphenhydrAMINE 50 mg/ml Inj IVP STA (10:09)
[2018-07-13] MEDS ORDERED: MethylPREDNISolone 40 mg Vial IVP ONE (10:15)
--- NOTE | 2018-07-13 10:48 | CP.PCM.PN ---
Subjective - Date & Time of Evaluation Date of Evaluation: 07/07/18 Time of Evaluation: 18:00 - Subjective Subjective: pt doing well, still w jaundice. bw noted. per d v haileyle pt to have am labs tomorrow and possible further in-patient tx no f/c, n/v/d. no complaitns Objective - Vital Signs/Intake and Output Vital Signs (last 24 hours): Temp Pulse Resp BP Pulse Ox 98.0 F 93 H 20 89/54 L 99 07/07/18 16:04 07/07/18 16:04 07/07/18 16:04 07/07/18 16:04 07/07/18 16:04 - Medications Medications: Current Medications Gabapentin (Neurontin) 600 mg PO HS [facility] Last Admin: 07/06/18 21:37 Dose: 600 mg Hydrocortisone (Cortef) 20 mg PO DAILY [facility] Stop: 07/11/18 09:00 Methimazole (Tapazole) 10 mg PO BID [facility] Last Admin: 07/07/18 17:45 Dose: 10 mg Naproxen (Naproxen) 500 mg PO DAILY [facility] Last Admin: 07/07/18 09:34 Dose: 500 mg - Labs Labs: 07/07/18 06:00 07/07/18 06:00 PT 12.2 Seconds (9.8-13.1) 07/04/18 16:48 INR 1.1 07/04/18 16:48 APTT 22.0 Seconds (25.6-37.1) L 07/04/18 16:48 - Constitutional Appears: Well, Non-toxic, No Acute Distress - Head Exam Head Exam: ATRAUMATIC, NORMAL INSPECTION, NORMOCEPHALIC - Eye Exam Eye Exam: EOMI, Normal appearance, PERRL Pupil Exam: NORMAL ACCOMODATION, PERRL - ENT Exam ENT Exam: Mucous Membranes Moist, Normal Exam - Neck Exam Neck Exam: Full ROM, Normal Inspection. absent: Lymphadenopathy - Respiratory Exam Respiratory Exam: Clear to Ausculation Bilateral, NORMAL BREATHING PATTERN - Cardiovascular Exam Cardiovascular Exam: REGULAR RHYTHM, RRR, +S1, +S2. absent: Murmur - GI/Abdominal Exam GI & Abdominal Exam: Soft, Normal Bowel Sounds. absent: Tenderness - Extremities Exam Extremities Exam: Full ROM, Normal Capillary Refill, Normal Inspection. absent: Joint Swelling, Pedal Edema - Back Exam Back Exam: NORMAL INSPECTION - Neurological Exam Neurological Exam: Alert, Awake, CN II-XII Intact, Normal Gait, Oriented x3 - Psychiatric Exam Psychiatric exam: Normal Affect, Normal Mood - Skin Skin Exam: Dry, Intact, Normal Color, Warm Assessment and Plan (1) Elevated LFTs Assessment & Plan: gi r/t hemolytic anemia Status: Acute (2) Hemolytic anemia Assessment & Plan: heme/onc transfusion suport steroids Status: Acute (3) DVT prophylaxis Assessment & Plan: scd and ae hose ambulation Status: Acute (4) Hyperthyroidism Assessment & Plan: methimazole Status: Acute (5) ITP (idiopathic thrombocytopenic purpura) Status: Acute
[2018-07-14 08:40] LABS: BASO # 0.1 K/uL (0.0-0.2); BASO % 0.4 % (0.0-2.0); EOS # 0.1 K/uL (0.0-0.7); EOS % 0.4 % (0.0-4.0); HEMOGLOBIN 8.7 g/dL (12.0-16.0); LYMPH # 1.9 K/uL (1.0-4.3); LYMPH % 13.3 % (20.0-40.0); MEAN CELL VOLUME 91.7 fl (81.0-99.0); MEAN CORPUSCULAR HEMOGLOBIN 30.5 pg (27.0-31.0); MEAN CORPUSCULAR HGB CONC 33.3 g/dL (33.0-37.0); MEAN PLATELET VOLUME 8.1 fl (7.2-11.7); MONO # 0.4 K/uL (0.0-0.8); NEUT % 82.9 % (50.0-75.0); NRBC % 0.3 % (0.0-0.0); RBC 2.84 Mil/uL (3.80-5.20); RED CELL DISTRIBUTION WIDTH 16.2 % (11.5-14.5); WHITE BLOOD COUNT 14.4 K/uL (4.8-10.8)
[2018-07-14] MEDS: Naproxen 500 MG TAB PO SCH (09:22)
[2018-07-14 09:42] LABS: ALB/GLOB RATIO 1.2 (1.0-2.1); ALBUMIN 3.9 g/dL (3.5-5.0); ALT/SGPT 91 U/L (9-52); AST/SGOT 47 U/L (14-36); BLOOD UREA NITROGEN 15 mg/dl (7-17); CALCIUM 8.7 mg/dL (8.4-10.2); GFR NON-AFRICAN AMERICAN > 60
[2018-07-14] MEDS ORDERED: methylPREDNISolone 40 MG in Sodium Chloride 0.9% 50 ML IVPB ONE (10:00)
--- NOTE | 2018-07-14 17:45 | US ---
Date of service: 07/14/2018 HISTORY: Right flank of pain COMPARISON: None. TECHNIQUE: Sonographic evaluation of the abdomen. FINDINGS: LIVER: Measures 18.3 cm. smooth contour and normal echogenicity of the liver parenchyma. No mass. No intrahepatic bile duct dilatation. The on read GALLBLADDER: No evidence of intraluminal gallbladder calculi COMMON BILE DUCT: Measures 2.7 mm. No stones. No dilatation. PANCREAS: Pancreas poorly seen due to body habitus and bowel gas RIGHT KIDNEY: Measures 11.7 x 3.3 x 5.3cm. Normal echogenicity. No calculus, mass, or hydronephrosis. LEFT KIDNEY: Measures 10.8 x 5.2 x 4.5cm. Normal echogenicity. No calculus, mass, or hydronephrosis. SPLEEN: Splenectomy. AORTA: No aneurysmal dilatation. IVC: Unremarkable. OTHER FINDINGS: None. IMPRESSION: No evidence of intraluminal gallbladder calculi. No evidence of nephrolithiasis or hydronephrosis. Splenectomy. Pancreas not visualized due to body habitus and bowel gas.
[2018-07-15 06:10] LABS: BASO # 0.1 K/uL (0.0-0.2); BASO % 0.6 % (0.0-2.0); EOS # 0.1 K/uL (0.0-0.7); EOS % 0.9 % (0.0-4.0); HEMOGLOBIN 7.7 g/dL (12.0-16.0); LYMPH # 1.9 K/uL (1.0-4.3); LYMPH % 18.3 % (20.0-40.0); MEAN CELL VOLUME 92.4 fl (81.0-99.0); MEAN CORPUSCULAR HEMOGLOBIN 30.5 pg (27.0-31.0); MONO # 0.6 K/uL (0.0-0.8); MONO % 6.3 % (0.0-10.0); NEUT # 7.5 K/uL (1.8-7.0); NEUT % 73.9 % (50.0-75.0); NRBC % 0.3 % (0.0-0.0); RBC 2.53 Mil/uL (3.80-5.20); RED CELL DISTRIBUTION WIDTH 16.6 % (11.5-14.5); WHITE BLOOD COUNT 10.2 K/uL (4.8-10.8)
[2018-07-15 06:26] LABS: ALB/GLOB RATIO 1.1 (1.0-2.1); ALBUMIN 3.5 g/dL (3.5-5.0); ALT/SGPT 75 U/L (9-52); AST/SGOT 36 U/L (14-36); BLOOD UREA NITROGEN 18 mg/dl (7-17); CALCIUM 8.3 mg/dL (8.4-10.2); GFR NON-AFRICAN AMERICAN > 60
[2018-07-15] MEDS: Naproxen 500 MG TAB PO SCH (08:00)
[2018-07-15] MEDS ORDERED: Sodium Chloride 0.9% 500 ML IV SCH (08:30)
[2018-07-15] MEDS ORDERED: RITUXIMAB IV ONE (09:00)
[2018-07-15] MEDS ORDERED: Acetaminophen 650mg/20.3ml solution UD PO ONE (09:00)
[2018-07-15] MEDS ORDERED: SODIUM CHLORIDE 0.9% IV ONE (09:00)
[2018-07-15] MEDS ORDERED: Dexamethasone 10 MG in Sodium Chloride 0.9% 50 ML IVPB ONE (09:00)
--- NOTE | 2018-07-15 09:03 | CP.PCM.PN ---
Subjective - Date & Time of Evaluation Date of Evaluation: 07/15/18 Time of Evaluation: 09:02 - Subjective Subjective: pt doing well. no f/c, n/v/d. no complaints. bw noted. pending clearance for dc by heme/onc pt for 2nd dose of rituxin Objective - Vital Signs/Intake and Output Vital Signs (last 24 hours): Temp Pulse Resp BP Pulse Ox 97.3 F L 74 20 105/70 99 07/15/18 08:23 07/15/18 08:23 07/15/18 08:23 07/15/18 08:23 07/15/18 08:23 - Medications Medications: Current Medications Docusate Sodium (Colace) 200 mg PO DAILY [facility] Last Admin: 07/15/18 08:00 Dose: 200 mg Famotidine (Pepcid) 20 mg PO Q12 [facility] Last Admin: 07/15/18 08:00 Dose: 20 mg Folic Acid (Folic Acid) 1 mg PO DAILY [facility] Last Admin: 07/15/18 08:00 Dose: 1 mg Gabapentin (Neurontin) 600 mg PO HS [facility] Last Admin: 07/14/18 21:30 Dose: 600 mg Hydrocortisone (Cortef) 20 mg PO QID [facility] Last Admin: 07/15/18 08:00 Dose: 20 mg Diphenhydramine HCl 25 mg/ (Sodium Chloride) 50.5 mls @ 101 mls/hr IVPB ONCE ONE Stop: 07/15/18 09:29 Dexamethasone 10 mg/ Sodium (Chloride) 51 mls @ 102 mls/hr IVPB ONCE ONE Stop: 07/15/18 09:29 Sodium Chloride (Sodium Chloride 0.9%) 500 mls @ 60 mls/hr IV .Q8H20M [facility] Rituximab 785 mg/ Sodium (Chloride) 328.5 mls @ 54.75 mls/hr IV ONCE ONE Stop: 07/15/18 14:59 Ondansetron HCl 16 mg/ Sodium (Chloride) 58 mls @ 116 mls/hr IVPB ONCE ONE Stop: 07/15/18 09:29 Lactulose (Enulose) 10 gm PO DAILY PRN PRN Reason: Constipation Last Admin: 07/12/18 12:53 Dose: 10 gm Methimazole (Tapazole) 10 mg PO BID [facility] Last Admin: 07/15/18 08:00 Dose: 10 mg Naproxen (Naproxen) 500 mg PO DAILY [facility] Last Admin: 07/15/18 08:00 Dose: 500 mg - Labs Labs: 07/15/18 05:40 07/15/18 05:40 PT 12.2 Seconds (9.8-13.1) 07/04/18 16:48 INR 1.1 07/04/18 16:48 APTT 22.0 Seconds (25.6-37.1) L 07/04/18 16:48 - Constitutional Appears: Well, Non-toxic, No Acute Distress - Head Exam Head Exam: ATRAUMATIC, NORMAL INSPECTION, NORMOCEPHALIC - Eye Exam Eye Exam: EOMI, Normal appearance, PERRL Pupil Exam: NORMAL ACCOMODATION, PERRL - ENT Exam ENT Exam: Mucous Membranes Moist, Normal Exam - Neck Exam Neck Exam: Full ROM, Normal Inspection. absent: Lymphadenopathy - Respiratory Exam Respiratory Exam: Clear to Ausculation Bilateral, NORMAL BREATHING PATTERN - Cardiovascular Exam Cardiovascular Exam: REGULAR RHYTHM, RRR, +S1, +S2. absent: Murmur - GI/Abdominal Exam GI & Abdominal Exam: Soft, Normal Bowel Sounds. absent: Tenderness - Extremities Exam Extremities Exam: Full ROM, Normal Capillary Refill, Normal Inspection. absent: Joint Swelling, Pedal Edema - Back Exam Back Exam: NORMAL INSPECTION - Neurological Exam Neurological Exam: Alert, Awake, CN II-XII Intact, Normal Gait, Oriented x3 - Psychiatric Exam Psychiatric exam: Normal Affect, Normal Mood - Skin Skin Exam: Dry, Intact, Normal Color, Warm Assessment and Plan (1) DVT prophylaxis Assessment & Plan: scd and aehose ambulation Status: Acute (2) Hemolytic anemia Assessment & Plan: heme/onc s/p transfusion bw noted rifuxin Status: Acute (3) Hyperthyroidism Assessment & Plan: methimazole Status: Acute (4) ITP (idiopathic thrombocytopenic purpura) Assessment & Plan: hemeonc monitor Status: Acute (5) Elevated LFTs Assessment & Plan: improving cont to monitor GI Status: Acute
--- NOTE | 2018-07-15 10:18 | CP.PCM.PN ---
Subjective - Date & Time of Evaluation Date of Evaluation: 07/15/18 Time of Evaluation: 10:15 - Subjective Subjective: Pt's Hgb is still low 7,7gms. Will give rituxan today and maybe she will go home today. She will return for rituxan next week mondy. Objective - Vital Signs/Intake and Output Vital Signs (last 24 hours): Temp Pulse Resp BP Pulse Ox 97.3 F L 74 20 105/70 99 07/15/18 08:23 07/15/18 08:23 07/15/18 08:23 07/15/18 08:23 07/15/18 08:23 - Medications Medications: Current Medications Docusate Sodium (Colace) 200 mg PO DAILY [facility] Last Admin: 07/15/18 08:00 Dose: 200 mg Famotidine (Pepcid) 20 mg PO Q12 [facility] Last Admin: 07/15/18 08:00 Dose: 20 mg Folic Acid (Folic Acid) 1 mg PO DAILY [facility] Last Admin: 07/15/18 08:00 Dose: 1 mg Gabapentin (Neurontin) 600 mg PO HS [facility] Last Admin: 07/14/18 21:30 Dose: 600 mg Hydrocortisone (Cortef) 20 mg PO QID [facility] Last Admin: 07/15/18 08:00 Dose: 20 mg Sodium Chloride (Sodium Chloride 0.9%) 500 mls @ 60 mls/hr IV .Q8H20M [facility] Last Admin: 07/15/18 09:07 Dose: 60 mls/hr Rituximab 785 mg/ Sodium (Chloride) 328.5 mls @ 54.75 mls/hr IV ONCE ONE Stop: 07/15/18 14:59 Lactulose (Enulose) 10 gm PO DAILY PRN PRN Reason: Constipation Last Admin: 07/12/18 12:53 Dose: 10 gm Methimazole (Tapazole) 10 mg PO BID [facility] Last Admin: 07/15/18 08:00 Dose: 10 mg Naproxen (Naproxen) 500 mg PO DAILY [facility] Last Admin: 07/15/18 08:00 Dose: 500 mg - Labs Labs: 07/15/18 05:40 07/15/18 05:40 PT 12.2 Seconds (9.8-13.1) 07/04/18 16:48 INR 1.1 07/04/18 16:48 APTT 22.0 Seconds (25.6-37.1) L 07/04/18 16:48
[2018-07-15 16:35] VITALS: BP 93/59; PULSE 83; RESP 18; TEMP 98.8; O2SAT 96
--- NOTE | 2018-07-17 10:05 | CP.PCM.DIS ---
Provider - Provider Date of Admission: 07/04/18 19:33 Attending physician: Shelly Callahan MD Consults: 07/04/18 19:39 Hematology Oncology Consult Stat Comment: Consulting Provider: Scottie Queen Consulting Physician: Scottie Queen Reason for Consult: anemic with jaudince (hemolysis) 07/05/18 08:59 Gastroenterology Consult Routine Comment: Consulting Provider: Dimitri Lua Consulting Physician: Dimitri Lau Reason for Consult: hemolytic anema, elevated lft, jaundice, echogenic liver Time Spent in preparation of Discharge (in minutes): 15 Diagnosis - Discharge Diagnosis (1) DVT prophylaxis Status: Acute (2) Hemolytic anemia Status: Acute (3) Hyperthyroidism Status: Acute (4) ITP (idiopathic thrombocytopenic purpura) Status: Acute (5) Elevated LFTs Status: Acute Hospital Course - Lab Results Lab Results: Most Recent Lab Values WBC 10.2 K/uL (4.8-10.8) 07/15/18 05:40 RBC 2.53 Mil/uL (3.80-5.20) L 07/15/18 05:40 Hgb 7.7 g/dL (12.0-16.0) L 07/15/18 05:40 Hct 23.4 % (34.0-47.0) L 07/15/18 05:40 MCV 92.4 fl (81.0-99.0) 07/15/18 05:40 MCH 30.5 pg (27.0-31.0) 07/15/18 05:40 MCHC 33.0 g/dL (33.0-37.0) 07/15/18 05:40 RDW 16.6 % (11.5-14.5) H 07/15/18 05:40 Plt Count 323 K/uL (130-400) 07/15/18 05:40 MPV 8.0 fl (7.2-11.7) 07/15/18 05:40 Neut % (Auto) 73.9 % (50.0-75.0) 07/15/18 05:40 Lymph % (Auto) 18.3 % (20.0-40.0) L 07/15/18 05:40 [place] % (Auto) 6.3 % (0.0-10.0) 07/15/18 05:40 Eos % (Auto) 0.9 % (0.0-4.0) 07/15/18 05:40 Baso % (Auto) 0.6 % (0.0-2.0) 07/15/18 05:40 Neut # (Auto) 7.5 K/uL (1.8-7.0) H 07/15/18 05:40 Lymph # (Auto) 1.9 K/uL (1.0-4.3) 07/15/18 05:40 [place] # (Auto) 0.6 K/uL (0.0-0.8) 07/15/18 05:40 Eos # (Auto) 0.1 K/uL (0.0-0.7) 07/15/18 05:40 Baso # (Auto) 0.1 K/uL (0.0-0.2) 07/15/18 05:40 Neutrophils % (Manual) 84 % (42-75) H 07/09/18 19:21 Band Neutrophils % 1 % (0-2) 07/09/18 19:21 Lymphocytes % (Manual) 10 % (20-50) L 07/09/18 19:21 Monocytes % (Manual) 3 % (0-10) 07/09/18 19:21 Eosinophils % (Manual) 1 % (0-7) 07/09/18 19:21 Myelocytes % 1 % (0-0) H 07/09/18 19:21 Platelet Estimate Normal (NORMAL) 07/09/18 19:21 Large Platelets Present 07/09/18 19:21 Polychromasia Slight 07/09/18 19:21 Hypochromasia (manual) Moderate 07/09/18 19:21 Poikilocytosis (manual Slight 07/09/18 19:21 Anisocytosis (manual) Moderate 07/09/18 19:21 Macrocytosis (manual) Marked 07/04/18 16:48 Spherocytes Slight 07/04/18 16:48 Target Cells Slight 07/09/18 19:21 Ovalocytes Slight 07/09/18 19:21 Schistocytes Slight 07/04/18 16:48 Retic Count 5.2 % (0.5-1.5) H 07/15/18 05:40 PT 12.2 Seconds (9.8-13.1) 07/04/18 16:48 INR 1.1 07/04/18 16:48 APTT 22.0 Seconds (25.6-37.1) L 07/04/18 16:48 Sodium 140 mmol/l (132-148) 07/15/18 05:40 Potassium 4.9 MMOL/L (3.6-5.0) 07/15/18 05:40 Chloride 106 mmol/L (98-107) 07/15/18 05:40 Carbon Dioxide 27 mmol/L (22-30) 07/15/18 05:40 Anion Gap 12 (10-20) 07/15/18 05:40 BUN 18 mg/dl (7-17) H 07/15/18 05:40 Creatinine 0.5 mg/dl (0.7-1.2) L 07/15/18 05:40 Est GFR ( Amer) > 60 07/15/18 05:40 Est GFR (Non-Af Amer) > 60 07/15/18 05:40 POC Glucose (mg/dL) 107 mg/dL (65-110) 07/12/18 05:30 Random Glucose 91 mg/dL (65-105) 07/15/18 05:40 Calcium 8.3 mg/dL (8.4-10.2) L 07/15/18 05:40 Total Bilirubin 5.7 mg/dl (0.2-1.3) H 07/15/18 05:40 AST 36 U/L (14-36) D 07/15/18 05:40 ALT 75 U/L (9-52) H 07/15/18 05:40 Alkaline Phosphatase 57 U/L (38-126) 07/15/18 05:40 Lactate Dehydrogenase 1222 U/L (313-618) H 07/15/18 09:01 Total Protein 6.6 G/DL (6.3-8.2) 07/15/18 05:40 Albumin 3.5 g/dL (3.5-5.0) 07/15/18 05:40 Globulin 3.1 gm/dL (2.2-3.9) 07/15/18 05:40 Albumin/Globulin Ratio 1.1 (1.0-2.1) 07/15/18 05:40 Lipase 56 U/L (23-300) 07/04/18 16:48 Urine Color Yellow (YELLOW) 07/09/18 15:10 Urine Clarity Clear (Clear) 07/09/18 15:10 Urine pH 6.0 (5.0-8.0) 07/09/18 15:10 Ur Specific [place] 1.009 (1.003-1.030) 07/09/18 15:10 Urine Protein Negative mg/dL (NEGATIVE) 07/09/18 15:10 Urine Glucose (UA) Neg mg/dL (NEGATIVE) 07/09/18 15:10 Urine Ketones Negative mg/dL (NEGATIVE) 07/09/18 15:10 Urine Blood Negative (NEGATIVE) 07/09/18 15:10 Urine Nitrate Negative (NEGATIVE) 07/09/18 15:10 Urine Bilirubin Negative (NEGATIVE) 07/09/18 15:10 Urine Urobilinogen 2.0 mg/dL (0.2-1.0) H 07/09/18 15:10 Ur Leukocyte Esterase Neg Milly/uL (Negative) 07/09/18 15:10 Urine Microscopic WBC 1 /hpf (0-5) 07/09/18 15:10 Ur Squamous Epith Cells 1 /hpf (0-5) 07/09/18 15:10 Blood Type A POSITIVE 07/11/18 09:18 Antibody Screen Positive 07/11/18 09:18 Antibody Identification Anti S 07/11/18 09:18 Crossmatch See Detail 07/11/18 09:18 BBK History Checked Patient has bt 07/11/18 09:18 - Hospital Course Hospital Course: pt cleared by heme/onc multiple transfusions steroids gi abd us Discharge Exam - Head Exam Head Exam: ATRAUMATIC, NORMAL INSPECTION, NORMOCEPHALIC Discharge Plan - Discharge Medications Prescriptions: Famotidine [Pepcid] 20 mg PO Q12 #60 tab Folic Acid 1 mg PO DAILY #30 tab Hydrocortisone [Cortef] 20 mg PO QID #56 tab - Follow Up Plan Condition: GUARDED Disposition: HOME/ ROUTINE Instructions: Autoimmune Hemolytic Anemia, Jaundice, Adult (DC), Rituximab Additional Instructions: follow up with Dr Luo 2 days and repeat cbc in 2 days . final dx- hemolytic anemia, transaminitis, elev lft, cleareance by specialists f/u rmg and specialists Referrals: Selina Aguiar APN [Family Provider] - Scottie Queen MD [Staff Provider] - Alireza Luo, ASHLEIGH, [employer] [Advanced Practice Nurse] -
== END 2018-07-15 18:00 | disposition home or self-care (01) | DRG 897 ==
LOC: H.ER 15:48 → H.ERHOLD 19:33 → H.TEL 22:00 → H.MEDSURG1 07-10 16:40
PROVIDERS: ADMIT Family Medicine; ATTEND Family Medicine
PROC: 30233N1 Transfusion of Nonautologous Red Blood Cells into Peripheral Vein, Percutaneous Approach (ICD-10-PCS; principal; 2018-07-05)
DX: D59.1 Other autoimmune hemolytic anemias (principal); D69.3 Immune thrombocytopenic purpura; E05.90 Thyrotoxicosis, unspecified without thyrotoxic crisis or storm; E03.9 Hypothyroidism, unspecified; J45.909 Unspecified asthma, uncomplicated; K59.00 Constipation, unspecified; R74.0 Nonspecific elevation of levels of transaminase and lactic acid dehydrogenase [LDH]; Z87.891 Personal history of nicotine dependence; Z90.81 Acquired absence of spleen; Z88.7 Allergy status to serum and vaccine; Z91.041 Radiographic dye allergy status

== ENCOUNTER 2018-07-22 13:29 | Emergency (ER) | payer MEDICAID ==
[2018-07-22 13:40] VITALS: BMI 357.3
[2018-07-22 13:41] VITALS: RESP 17
--- NOTE | 2018-07-22 14:05 | ED PDOC ---
HPI: General Adult Time Seen by Provider: 07/22/18 13:48 Chief Complaint (Nursing): Weakness/Neurological Deficit Chief Complaint (Provider): Weakness/Neurological Deficit History Per: Patient History/Exam Limitations: no limitations Additional Complaint(s): 37 y/o female with history of anemia and hypothyroidism presents to ER for evaluation of weakness, dizziness and tiredness associated with cold, front headaches, bodyaches and ear congestion. Patient reports she has been having these symptoms since she was diagnosed with anemia at the end of May but worsened today. She states she received transfusion on 07/15 and was discharged. Patient reports visiting her PMD x4 days ago, where she had CBC done and found 7.1. Her PMD sent her to a pot feeder, Dr. Queen. As she was told, patient's anemia is related to developing more antibodies that are destroying her blood cells. Patient is compliant on steroids at home and reports her PMD prescribed her Vitamin B and hydrocortisone that she takes 4 times/day. On normal bases, patient states she takes Gabapin and Naproxen. She denies any allergies, urinary symptoms, vaginal bleeding, change in appetite, cough, runny nose, nose congestion or vision changes. No chest pain or dyspnea. PMD: Dr. Aguiar Registered Veterinary Technician: Dr. Queen Past Medical History Reviewed: Historical Data, Nursing Documentation, Vital Signs Vital Signs: Last Vital Signs Temp 98.6 F 07/22/18 13:40 Pulse 84 07/22/18 13:40 Resp 17 07/22/18 13:40 BP 89/56 L 07/22/18 13:40 Pulse Ox 99 07/22/18 13:40 - Medical History PMH: Anemia, Asthma, Hyperthyroidism Denies: Alzheimer's Disease, Anxiety, Arthritis, Atrial Fibrillation, Bipolar Disorder, Bronchitis, CAD, Cardia Arrhythmia, CHF, COPD, Crohn's Disease, Dementia, Depression, Diverticulitis, Emphysema, Fractures, Gastritis, Gall Bladder Disease, HIV, HTN, Hypercholesterolemia, Hypothyroidism, Kidney Stones, Migraine, Mitral Valve Prolapse, Multiple Sclerosis, Osteoporosis, Pancreatitis, Paranoia, Parkinson's Disease, Peripheral Edema, Pneumonia, Post Traumatic Stress Disorder, Pulmonary Embolism, Chronic Kidney Disease, Rheumatoid Arthritis, Schizophrenia, Seizures, Sickle Cell Disease, Sexually Transmitted Disease, Sleep Apnea, TIA - Surgical History Surgical History: Denies: Appendectomy, CABG, Carotid Endarterectomy, Cholecystectomy, Coronary Stent, Pacemaker, Tonsillectomy - Family History Family History: States: Diabetes, Hypertension - Living Arrangements Living Arrangements: With Family - Social History Alcohol: None Drugs: Denies - Immunization History Hx Tetanus Toxoid Vaccination: No - Home Medications Home Medications: Ambulatory Orders Medication Instructions Recorded Gabapentin [Neurontin] 600 mg PO HS 06/20/18 Naproxen [Naprosyn] 500 mg PO DAILY 06/20/18 methIMAzole [Tapazole] 10 mg PO BID #60 tab 06/28/18 Famotidine [Pepcid] 20 mg PO Q12 #60 tab 07/15/18 Folic Acid 1 mg PO DAILY #30 tab 07/15/18 Hydrocortisone [Cortef] 20 mg PO QID #56 tab 07/15/18 - Allergies Allergies/Adverse Reactions: Allergies Allergy/AdvReac Type Severity Reaction Status Date / Time iodine Allergy SHORTNESS Verified 07/10/18 15:39 OF BREATH pneumococcal vaccine Allergy RASH Verified 07/04/18 16:01 Review of Systems ROS Statement: Except As Marked, All Systems Reviewed And Found Negative Constitutional: Positive for: Weakness Eyes: Negative for: Vision Change ENT: Positive for: Ear Pain (congestion). Negative for: Nose Discharge, Nose Congestion Respiratory: Negative for: Cough Genitourinary Female: Negative for: Dysuria, Hematuria, Vaginal Bleeding Neurological: Positive for: Headache (not worst in her life; same since getting dx with anemia), Dizziness Physical Exam - Reviewed Nursing Documentation Reviewed: Yes Vital Signs Reviewed: Yes - Physical Exam Appears: Positive for: Non-toxic, No Acute Distress Head Exam: Positive for: ATRAUMATIC, NORMAL INSPECTION, NORMOCEPHALIC Skin: Positive for: Warm, Dry, Jaundice Eye Exam: Positive for: EOMI, PERRL, Scleral icterus ENT: Positive for: Normal ENT Inspection Neck: Positive for: Normal, Painless ROM, Supple Cardiovascular/Chest: Positive for: Regular Rate, Rhythm. Negative for: Murmur Respiratory: Positive for: Normal Breath Sounds. Negative for: Respiratory Distress Gastrointestinal/Abdominal: Positive for: Soft. Negative for: Tenderness Back: Negative for: L CVA Tenderness, R CVA Tenderness Extremity: Positive for: Normal ROM. Negative for: Tenderness, Swelling Neurologic/Psych: Positive for: Alert, skill training program coordinator II-XII, Oriented (x3). Negative for: Motor/Sensory Deficits, Aphasia, Facial Droop - Laboratory Results Result Diagrams: 07/22/18 14:34 07/22/18 14:34 Interpretation Of Abn Labs: 7.3 hg, 3.9 t bili. - ECG ECG: Positive for: Interpreted By Me, Viewed By Me ECG Rhythm: Positive for: Normal QRS, Normal ST Segment, Sinus Rhythm O2 Sat by Pulse Oximetry: 99 (RA) Pulse Ox Interpretation: Normal - Radiology X-Ray: Read By Radiologist X-Ray Interpretation: No Acute Disease - Progress ED Course And Treament: 1618: Stable. Spoke with Dr. Burns who is covering Dr. Queen. Pt. needs to get Rituximab, but likely not available today. He is going to speak with outpt. transfusion and find out more details. Pt. hg stable compared to previous. To give pt. blood, she had many antibodies so will take 1-2 days to get her blood. Pt. med not approved for inpt. at this time, so she will not get it. 1636: Stable. Pt. feels better. AAOx3. Not dizzy. Tolerates PO. Agreeable to go home and fu. Spoke with Dr. Burns. States he spoke with infusion center. Wants pt. to call [facility], [place] at [phone] outpt. infusion. Ask for Evet and she will help set up outpt. tx with Rituximab. Dr. Burns wants pt. to be dc. Medical Decision Making Medical Decision Making: Time: 1409 Initial Plan: --ABO/RH Tip Inserter --Type and screen --EKG --CMP --Lipase --Troponin --Urine --Urine dipstick --CBC --PTT --PT --Chest x-ray --Decadron 10 mg IVP 1432 CXR FINDINGS: LUNGS: No active pulmonary disease. PLEURA: No significant pleural effusion identified, no pneumothorax apparent. CARDIOVASCULAR: No atherosclerotic calcification present Normal. OSSEOUS STRUCTURES: No significant abnormalities. VISUALIZED UPPER ABDOMEN: Normal. OTHER FINDINGS: None. IMPRESSION: No active disease. No significant interval change compared to the prior examination(s). Scribe Attestation: Documented by Estefani Sutton, acting as a scribe for Rasta Price MD. Provider Scribe Attestation: All medical record entries made by the Scribe were at my direction and persona lly dictated by me. I have reviewed the chart and agree that the record accurately reflects my personal performance of the history, physical exam, medical decision making, and the department course for this patient. I have also personally directed, reviewed, and agree with the discharge instructions and disposition. Disposition - Clinical Impression Clinical Impression: ITP (idiopathic thrombocytopenic purpura), Hemolytic anemia, Episode of generalized weakness - Patient ED Disposition Is Patient to be Admitted: No Counseled Patient/Family Regarding: Studies Performed, Diagnosis, Need For Followup - Disposition Referrals: [facility] [Outside] Scottie Queen MD [Staff Provider] - 07/24/18 Disposition: Routine/Home Disposition Time: 16:42 Condition: STABLE Additional Instructions: Make sure to call Sunday at [phone] for outpatient infusion. Ask for Evet and she will help set up outpatient treatment with Rituximab. Return right away if not better or with dizziness, weakness, not feeling right. Instructions: Weakness (ED), Immune Thrombocytopenia (ITP) Forms: [employer] (Gabonese)
[2018-07-22] MEDS ORDERED: Sodium Chloride 0.9% 1,000 ML IV STA (14:12)
[2018-07-22] MEDS ORDERED: Dexamethasone 10 MG in Sodium Chloride 0.9% 50 ML IVPB STA (14:17)
--- NOTE | 2018-07-22 14:36 | RAD ---
Date of service: 07/22/2018 HISTORY: weakness COMPARISON: 07/10/2014 FINDINGS: LUNGS: No active pulmonary disease. PLEURA: No significant pleural effusion identified, no pneumothorax apparent. CARDIOVASCULAR: No atherosclerotic calcification present Normal. OSSEOUS STRUCTURES: No significant abnormalities. VISUALIZED UPPER ABDOMEN: Normal. OTHER FINDINGS: None. IMPRESSION: No active disease. No significant interval change compared to the prior examination(s).
[2018-07-22 15:04] LABS: PROTHROMBIN TIME 11.8 Seconds (9.8-13.1)
[2018-07-22 15:07] LABS: PARTIAL THROMBOPLASTIN TIME 25.4 Seconds (25.6-37.1)
[2018-07-22 15:09] LABS: BASO # 0.1 K/uL (0.0-0.2); BASO % 0.8 % (0.0-2.0); EOS # 0.1 K/uL (0.0-0.7); EOS % 0.6 % (0.0-4.0); HEMOGLOBIN 7.3 g/dL (12.0-16.0); LYMPH # 2.3 K/uL (1.0-4.3); MEAN CELL VOLUME 103.6 fl (81.0-99.0); MEAN CORPUSCULAR HEMOGLOBIN 33.1 pg (27.0-31.0); MEAN PLATELET VOLUME 7.9 fl (7.2-11.7); MONO # 0.9 K/uL (0.0-0.8); MONO % 7.3 % (0.0-10.0); NEUT # 8.8 K/uL (1.8-7.0); NEUT % 72.3 % (50.0-75.0); NRBC % 0.5 % (0.0-0.0); RBC 2.22 Mil/uL (3.80-5.20); RED CELL DISTRIBUTION WIDTH 31.1 % (11.5-14.5); WHITE BLOOD COUNT 12.2 K/uL (4.8-10.8)
[2018-07-22 15:30] LABS: ALB/GLOB RATIO 1.3 (1.0-2.1); ALBUMIN 3.5 g/dL (3.5-5.0); ALT/SGPT 55 U/L (9-52); AST/SGOT 32 U/L (14-36); BLOOD UREA NITROGEN 13 mg/dl (7-17); CALCIUM 8.7 mg/dL (8.4-10.2); GFR NON-AFRICAN AMERICAN > 60; LIPASE 57 U/L (23-300)
[2018-07-22 17:09] VITALS: BP 90/51; PULSE 74; TEMP 98; O2SAT 96
--- NOTE | 2018-07-24 00:32 | CARD ---
APPROVED REPORT Date of service: 07/22/2018 EKG Measurement Heart [id number] CT 134P56 [id number] <Conclusion> Normal sinus rhythm Normal ECG
== END 2018-07-22 17:00 | disposition home or self-care (01) ==
LOC: H.ER 13:29
DX: D69.3 Immune thrombocytopenic purpura (principal); D58.9 Hereditary hemolytic anemia, unspecified; R53.1 Weakness; J45.909 Unspecified asthma, uncomplicated; E05.90 Thyrotoxicosis, unspecified without thyrotoxic crisis or storm
CPT/HCPCS: 71045; 80053; 81025; 83690; 84484; 85025; 85044; 85610; 85730; 86850; 86870; 86880; 86900; 93005; 96361; 96374; 99285; J1100; J7030

== ENCOUNTER 2018-08-06 11:53 | Inpatient (IN) | payer MEDICAID ==
[2018-08-06 11:58] VITALS: BMI 35.5
[2018-08-06] MEDS ORDERED: Sodium Chloride 0.9% 1,000 ML IV STA (12:08)
--- NOTE | 2018-08-06 12:14 | ED PDOC ---
HPI: General Adult Time Seen by Provider: 08/06/18 12:00 Chief Complaint (Provider): Syncope History Per: Patient History/Exam Limitations: no limitations Onset/Duration Of Symptoms: Days Additional Complaint(s): Pt. was at the medical videographer office and got light-headed when walking in the office. Then she had a syncope episode that lasted a few minutes. States she then they placed her in a chair and started getting back to her baseline. No shaking seizure type activity noted. Pt. with no pain, weakness, headaches, dizziness currently. No numbness, tingles. Gets shots for her anemia. Last was last week. Has been more jaundiced since Sunday. No abd pain, nausea, vomit. Past Medical History Reviewed: Nursing Documentation, Vital Signs Vital Signs: Last Vital Signs Temp 98.4 F 08/06/18 11:56 Pulse 118 H 08/06/18 11:56 Resp 18 08/06/18 11:56 BP 96/40 L 08/06/18 11:56 Pulse Ox 98 08/06/18 11:56 - Medical History PMH: Anemia, Asthma, Hyperthyroidism Denies: Alzheimer's Disease, Anxiety, Arthritis, Atrial Fibrillation, Bipolar Disorder, Bronchitis, CAD, Cardia Arrhythmia, CHF, COPD, Crohn's Disease, Dementia, Depression, Diverticulitis, Emphysema, Fractures, Gastritis, Gall Bladder Disease, HIV, HTN, Hypercholesterolemia, Hypothyroidism, Kidney Stones, Migraine, Mitral Valve Prolapse, Multiple Sclerosis, Osteoporosis, Pancreatitis, Paranoia, Parkinson's Disease, Peripheral Edema, Pneumonia, Post Traumatic Stress Disorder, Pulmonary Embolism, Chronic Kidney Disease, Rheumatoid Arthritis, Schizophrenia, Seizures, Sickle Cell Disease, Sexually Transmitted Disease, Sleep Apnea, TIA - Surgical History Surgical History: Denies: Appendectomy, CABG, Carotid Endarterectomy, Cholecystectomy, Coronary Stent, Pacemaker, Tonsillectomy - Family History Family History: States: Diabetes, Hypertension - Immunization History Hx Tetanus Toxoid Vaccination: No - Home Medications Home Medications: Ambulatory Orders Medication Instructions Recorded Gabapentin [Neurontin] 600 mg PO HS 06/20/18 Naproxen [Naprosyn] 500 mg PO DAILY 06/20/18 methIMAzole [Tapazole] 10 mg PO BID #60 tab 06/28/18 Famotidine [Pepcid] 20 mg PO Q12 #60 tab 07/15/18 Folic Acid 1 mg PO DAILY #30 tab 07/15/18 Hydrocortisone [Cortef] 20 mg PO QID #56 tab 07/15/18 - Allergies Allergies/Adverse Reactions: Allergies Allergy/AdvReac Type Severity Reaction Status Date / Time iodine Allergy SHORTNESS Verified 07/10/18 15:39 OF BREATH pneumococcal vaccine Allergy RASH Verified 07/04/18 16:01 Review of Systems ROS Statement: Except As Marked, All Systems Reviewed And Found Negative Skin: Positive for: Jaundice Neurological: Positive for: Dizziness Physical Exam - Reviewed Nursing Documentation Reviewed: Yes Vital Signs Reviewed: Yes - Physical Exam Appears: Positive for: Uncomfortable Head Exam: Positive for: ATRAUMATIC, NORMAL INSPECTION, NORMOCEPHALIC Skin: Positive for: Jaundice Eye Exam: Positive for: EOMI, PERRL, Scleral icterus ENT: Positive for: Normal ENT Inspection. Negative for: Nasal Congestion, Pharyngeal Erythema Neck: Positive for: Painless ROM, Supple Cardiovascular/Chest: Positive for: Regular Rate, Rhythm Respiratory: Positive for: CNT, Normal Breath Sounds Gastrointestinal/Abdominal: Positive for: Normal Exam, Soft. Negative for: Tenderness Back: Negative for: L CVA Tenderness, R CVA Tenderness Extremity: Positive for: Normal ROM. Negative for: Tenderness, Pedal Edema Neurologic/Psych: Positive for: Alert, Oriented - Laboratory Results Result Diagrams: 08/06/18 14:09 08/06/18 14:09 Lab Results: 6.2 hg - ECG ECG: Positive for: Interpreted By Me, Viewed By Me ECG Rhythm: Positive for: Normal QRS, Normal ST Segment, Sinus Rhythm O2 Sat by Pulse Oximetry: 98 Pulse Ox Interpretation: Normal - CT Scan/US ct Other Rad Studies (CT/US): Read By Radiologist Other Rad Interpretation: no acute us Other Rad Studies (CT/US): Read By Radiologist Other Rad Interpretation: no acute - Progress ED Course And Treament: 1451: Pt. with anemia, worse then previous. Dr. Queen paged. 1503: Stable. AAOx3. Pain free. Spoke with Dr. Queen. Wants pt. to get transfusion. Spoke with Alireza. Will admit for Dr. Callahan. - Critical Care Total Time (In Min): 30 Documented Critical Care: Time excludes all time spent performint seperately billable procedures Disposition - Clinical Impression Clinical Impression: Anemia, Syncope - Patient ED Disposition Is Patient to be Admitted: Yes Counseled Patient/Family Regarding: Studies Performed, Diagnosis - Disposition Disposition Time: 14:30 Condition: FAIR - Pt Status Changed To: Hospital Disposition Of: Inpatient - Admit Certification Admit to Inpatient:: After my assessment, the patient will require hospitalization for at least two midnights. This is because of the severity of symptoms shown, intensity of services needed, and/or the medical risk in this patient being treated as an outpatient. - POA Present On Arrival: None
--- NOTE | 2018-08-06 12:44 | CT ---
Date of service: 08/06/2018 PROCEDURE: CT HEAD WITHOUT CONTRAST. HISTORY: Headache be COMPARISON: None available. TECHNIQUE: Axial computed tomography images were obtained through the head/brain without intravenous contrast. Radiation dose: Total exam DLP = 833.36 mGy-cm. This CT exam was performed using one or more of the following dose reduction techniques: Automated exposure control, adjustment of the mA and/or kV according to patient size, and/or use of iterative reconstruction technique. FINDINGS: HEMORRHAGE: No intracranial hemorrhage. BRAIN: No mass effect or edema. No atrophy or chronic microvascular ischemic changes. VENTRICLES: Unremarkable. No hydrocephalus. CALVARIUM: Unremarkable. PARANASAL SINUSES: Minimal mucosal thickening seen in the right chamber sphenoid sinus and left maxillary antrum. Prominent right fatty ana bullosa.. MASTOID AIR CELLS: Unremarkable as visualized. No inflammatory changes. OTHER FINDINGS: Findings suggest mild exophthalmos however clinical correlation with ophthalmologic examination. IMPRESSION: No evidence of acute intracranial hemorrhage. The the
--- NOTE | 2018-08-06 13:20 | US ---
Date of service: 08/06/2018 HISTORY: RUQ and pancreas; jaundice eval COMPARISON: None. TECHNIQUE: Sonographic evaluation of the right upper quadrant of the abdomen. FINDINGS: LIVER: Measures 17.8 cm in length. Mild diffusely increased echogenicity of the liver parenchyma. Consistent with fatty infiltration. Smooth contour. No mass. No biliary dilatation. Normal hepatopetal portal venous flow demonstrated. GALLBLADDER: Contracted gallbladder. No evidence of cholelithiasis. No pericholecystic fluid. Negative sonographic Sanchez sign. COMMON BILE DUCT: Measures 3 mm. No stones. No dilatation. PANCREAS: Grossly normal. RIGHT KIDNEY: Measures 9.9 cm in length. Normal echogenicity. No calculus, mass, or hydronephrosis. AORTA: No aneurysmal dilatation. IVC: Unremarkable. OTHER FINDINGS: None . IMPRESSION: Mild fatty infiltration of the liver. No evidence of cholelithiasis or cholecystitis. No evidence of biliary obstruction.
[2018-08-06 13:23] LABS: SQUAMOUS EPITHIAL 18 /hpf (0-5); URINE BACTERIA RARE (<OCC); URINE BILIRUBIN NEGATIVE (NEGATIVE); URINE BLOOD LARGE (NEGATIVE); URINE CLARITY CLOUDY (Clear); URINE COLOR AMBER (YELLOW); URINE GLUCOSE (UA) NEG (NEGATIVE); URINE LEUKOCYTE ESTERASE NEG Leu/uL (Negative); URINE PROTEIN 30 mg/dL (NEGATIVE)
[2018-08-06 14:28] LABS: PROTHROMBIN TIME 11.3 Seconds (9.8-13.1)
[2018-08-06 14:38] LABS: ALB/GLOB RATIO 1.3 (1.0-2.1); ALBUMIN 3.6 g/dL (3.5-5.0); ALT/SGPT 47 U/L (9-52); AST/SGOT 34 U/L (14-36); BASO # 0.1 K/uL (0.0-0.2); BASO % 0.8 % (0.0-2.0); BLOOD UREA NITROGEN 17 mg/dl (7-17); CALCIUM 8.8 mg/dL (8.4-10.2); EOS # 0.2 K/uL (0.0-0.7); EOS % 1.2 % (0.0-4.0); GFR NON-AFRICAN AMERICAN > 60; LIPASE 40 U/L (23-300); LYMPH % 12.3 % (20.0-40.0); MEAN CELL VOLUME 110.4 fl (81.0-99.0); MEAN CORPUSCULAR HEMOGLOBIN 35.1 pg (27.0-31.0); MEAN CORPUSCULAR HGB CONC 31.8 g/dL (33.0-37.0); MEAN PLATELET VOLUME 7.5 fl (7.2-11.7); MONO # 1.2 K/uL (0.0-0.8); MONO % 7.5 % (0.0-10.0); NEUT # 12.5 K/uL (1.8-7.0); NEUT % 78.2 % (50.0-75.0); NRBC % 0.2 % (0.0-0.0); RBC 1.77 Mil/uL (3.80-5.20); RED CELL DISTRIBUTION WIDTH 28.1 % (11.5-14.5)
[2018-08-06 14:43] LABS: HEMOGLOBIN 6.2 g/dL (12.0-16.0)
[2018-08-06 15:34] LABS: PARTIAL THROMBOPLASTIN TIME 17.5 Seconds (25.6-37.1)
--- NOTE | 2018-08-06 18:57 | CARD ---
APPROVED REPORT Date of service: 08/06/2018 EKG Measurement Heart [id number] NC 138P0 [id number] <Conclusion> Normal sinus rhythm Normal ECG
[2018-08-07] MEDS ORDERED: Dexamethasone 10 MG in Sodium Chloride 0.9% 50 ML IVPB ONE (08:15)
[2018-08-07] MEDS ORDERED: Sodium Chloride 0.9% 500 ML IV SCH (08:15)
--- NOTE | 2018-08-07 08:46 | CP.PCM.CON ---
History of Present Illness - History of Present Illness History of Present Illness: This is a 37 yrs old female who is admitted for a syncopal episode. 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 She did not respond to either steroids or IVGG. She was started on rituximab and the hgb stabilized at 8.7gms. She was doing well,but went to the hris coordinator where she had lubricating substance injected into her joint , and about 4-5 mins later had a syncopal episode. Pt claims that the hris coordinator told her that she has rolled her eyes and seizure could not be ruled out. she came to the ER where a CT of the head was normal, her abdominal US was normal,but her hgb was down to 6.2gms She started her period on 08/08/18. and she has heavy periods. The low count is probably secondary to the period. P/H 4 yrs ago pt had almost refractory immune thrombocytopenia, but finally responded thromboplastin. pt als has hyperethyroidism, and peripheral neuropathies. Past Patient History - Past Medical History & Family History Past Medical History?: Yes - Past Social History Smoking Status: Former Smoker - CARDIAC Hx Cardiac Disorders: No - PULMONARY Hx Respiratory Disorders: Yes Hx Asthma: Yes - NEUROLOGICAL Hx Neurological Disorder: No - HEENT Hx HEENT Problems: No - RENAL Hx Chronic Kidney Disease: No - ENDOCRINE/METABOLIC Hx Endocrine Disorders: No - HEMATOLOGICAL/ONCOLOGICAL Hx Blood Disorders: Yes Hx Anemia: Yes - INTEGUMENTARY Hx Dermatological Problems: No - MUSCULOSKELETAL/RHEUMATOLOGICAL Hx Musculoskeletal Disorders: Yes Hx Falls: Yes - GASTROINTESTINAL Hx Gastrointestinal Disorders: No Hx Crohn's Disease: No Hx Diverticulitis: No Hx Gall Bladder Disease: No Hx Gastritis: No Hx Pancreatitis: No - GENITOURINARY/GYNECOLOGICAL Hx Genitourinary Disorders: No - PSYCHIATRIC Hx Psychophysiologic Disorder: No - SURGICAL HISTORY Hx Surgeries: Yes Hx Appendectomy: No Hx Carotid Endarterectomy: No Hx Cholecystectomy: No Hx Coronary Artery Bypass Graft: No Hx Coronary Stent: No Hx Splenectomy: Yes Hx Tonsillectomy: No - ANESTHESIA Hx Anesthesia: Yes Hx Anesthesia Reactions: No Hx Malignant Hyperthermia: No Meds Allergies/Adverse Reactions: Allergies Allergy/AdvReac Type Severity Reaction Status Date / Time iodine Allergy SHORTNESS Verified 07/10/18 15:39 OF BREATH pneumococcal vaccine Allergy RASH Verified 07/04/18 16:01 - Medications Medications: Current Medications Acetaminophen (Tylenol 650mg/20.3ml Solution Ud) 650 mg PO ONCE ONE Stop: 08/07/18 08:16 Famotidine (Pepcid) 20 mg PO Q12 [facility] Last Admin: 08/06/18 21:25 Dose: 20 mg Folic Acid (Folic Acid) 1 mg PO DAILY [facility] Gabapentin (Neurontin) 600 mg PO HS [facility] Last Admin: 08/06/18 21:25 Dose: 600 mg Hydrocortisone (Cortef) 20 mg PO QID [facility] Last Admin: 08/06/18 21:30 Dose: 20 mg Diphenhydramine HCl 25 mg/ (Sodium Chloride) 50.5 mls @ 101 mls/hr IVPB ONCE ONE Stop: 08/07/18 08:44 Dexamethasone 10 mg/ Sodium (Chloride) 51 mls @ 102 mls/hr IVPB ONCE ONE Stop: 08/07/18 08:44 Sodium Chloride (Sodium Chloride 0.9%) 500 mls @ 90 mls/hr IV .[id number] [facility] Stop: 08/07/18 13:48 Rituximab 800 mg/ Sodium (Chloride) 330 mls @ 0 mls/hr IV ONCE ONE; Protocol Stop: 08/07/18 08:17 Ondansetron HCl 16 mg/ Sodium (Chloride) 58 mls @ 116 mls/hr IVPB ONCE ONE Stop: 08/07/18 08:44 Methimazole (Tapazole) 10 mg PO BID [facility] Last Admin: 08/06/18 17:50 Dose: 10 mg Physical Exam - Additional Findings Additional findings: Physical exam; alert, well oriented slight icterus. neck; supple, no adenopathy Chest; Clear, no rales Heart; RSR, no murmur Abd; Slight hepatomegaly, no splenomegaly Results - Vital Signs Recent Vital Signs: Last Vital Signs Temp 97.9 F 08/07/18 07:53 Pulse 83 08/07/18 07:53 Resp 18 08/07/18 07:53 BP 90/60 L 08/07/18 07:53 Pulse Ox 99 08/07/18 07:53 - Labs Result Diagrams: 08/06/18 14:09 08/06/18 14:09 Labs: Laboratory Results - last 24 hr 08/06/18 08/06/18 08/06/18 12:19 13:10 14:09 WBC 16.0 H D RBC 1.77 L Hgb 6.2 L* D Hct 19.6 L MCV 110.4 H D MCH 35.1 H MCHC 31.8 L RDW 28.1 H Plt Count 421 H MPV 7.5 Neut % (Auto) 78.2 H Lymph % (Auto) 12.3 L Whitman % (Auto) 7.5 Eos % (Auto) 1.2 Baso % (Auto) 0.8 Neut # (Auto) 12.5 H Lymph # (Auto) 2.0 Whitman # (Auto) 1.2 H Eos # (Auto) 0.2 Baso # (Auto) 0.1 PT INR APTT Sodium Potassium Chloride Carbon Dioxide Anion Gap BUN Creatinine Est GFR ( Amer) Est GFR (Non-Af Amer) POC Glucose (mg/dL) 120 H Random Glucose Calcium Total Bilirubin AST ALT Alkaline Phosphatase Troponin I Total Protein Albumin Globulin Albumin/Globulin Ratio Lipase Urine Color Mikala Urine Clarity Cloudy Urine pH 6.0 Ur Specific [place] 1.021 Urine Protein 30 Urine Glucose (UA) Neg Urine Ketones Negative Urine Blood Large Urine Nitrate Negative Urine Bilirubin Negative Urine Urobilinogen 4.0 H Ur Leukocyte Esterase Neg Urine RBC (Auto) 4 H Urine Microscopic WBC 12 H Ur Squamous Epith Cells 18 H Urine Bacteria Rare Blood Type Antibody Screen Antibody Identification Crossmatch BBK History Checked 08/06/18 08/06/18 08/06/18 14:09 14:09 17:10 WBC RBC Hgb Hct MCV MCH MCHC RDW Plt Count MPV Neut % (Auto) Lymph % (Auto) Whitman % (Auto) Eos % (Auto) Baso % (Auto) Neut # (Auto) Lymph # (Auto) Whitman # (Auto) Eos # (Auto) Baso # (Auto) PT 11.3 INR 1.0 APTT 17.5 L Sodium 140 Potassium 4.0 Chloride 101 Carbon Dioxide 25 Anion Gap 18 BUN 17 Creatinine 0.5 L Est GFR ( Amer) > 60 Est GFR (Non-Af Amer) > 60 POC Glucose (mg/dL) Random Glucose 97 Calcium 8.8 Total Bilirubin 6.5 H AST 34 ALT 47 Alkaline Phosphatase 47 Troponin I < 0.0120 Total Protein 6.4 Albumin 3.6 Globulin 2.8 Albumin/Globulin Ratio 1.3 Lipase 40 Urine Color Urine Clarity Urine pH Ur Specific [place] Urine Protein Urine Glucose (UA) Urine Ketones Urine Blood Urine Nitrate Urine Bilirubin Urine Urobilinogen Ur Leukocyte Esterase Urine RBC (Auto) Urine Microscopic WBC Ur Squamous Epith Cells Urine Bacteria Blood Type A POSITIVE Antibody Screen Positive Antibody Identification Anti S Crossmatch See Detail BBK History Checked Patient has bt Assessment & Plan - Assessment and Plan (Free Text) Assessment: Impression: autoimmune hemolytic anemia Plan: Plan; Will give her rituxan and 2 units of packed cells. - Date & Time Date: 08/07/18 Time: 08:56
[2018-08-07] MEDS ORDERED: DiphenhydrAMINE 50 mg/ml Inj IVP ONE (09:15)
[2018-08-07] MEDS ORDERED: Acetaminophen 650mg/20.3ml solution UD PO ONE (09:20)
--- NOTE | 2018-08-07 10:15 | CP.PCM.HP ---
History of Present Illness - History of Present Illness History of Present Illness: pt admitted for anemia-hemolytic and jaundice. pt felt weak/dizzy at rheum office yesterday. at presetn feels weak. no f/c, n/v/d. bw noted. v damle=heme/onc on case Present on Admission - Present on Admission Any Indicators Present on Admission: No Review of Systems - Constitutional Constitutional: As Per HPI - Integumentary Integumentary: As Per HPI Past Patient History - Past Medical History & Family History Past Medical History?: Yes - Past Social History Smoking Status: Former Smoker - CARDIAC Hx Cardiac Disorders: No - PULMONARY Hx Respiratory Disorders: Yes Hx Asthma: Yes - NEUROLOGICAL Hx Neurological Disorder: No - HEENT Hx HEENT Problems: No - RENAL Hx Chronic Kidney Disease: No - ENDOCRINE/METABOLIC Hx Endocrine Disorders: No - HEMATOLOGICAL/ONCOLOGICAL Hx Blood Disorders: Yes Hx Anemia: Yes - INTEGUMENTARY Hx Dermatological Problems: No - MUSCULOSKELETAL/RHEUMATOLOGICAL Hx Musculoskeletal Disorders: Yes Hx Falls: Yes - GASTROINTESTINAL Hx Gastrointestinal Disorders: No Hx Crohn's Disease: No Hx Diverticulitis: No Hx Gall Bladder Disease: No Hx Gastritis: No Hx Pancreatitis: No - GENITOURINARY/GYNECOLOGICAL Hx Genitourinary Disorders: No - PSYCHIATRIC Hx Psychophysiologic Disorder: No - SURGICAL HISTORY Hx Surgeries: Yes Hx Appendectomy: No Hx Carotid Endarterectomy: No Hx Cholecystectomy: No Hx Coronary Artery Bypass Graft: No Hx Coronary Stent: No Hx Splenectomy: Yes Hx Tonsillectomy: No - ANESTHESIA Hx Anesthesia: Yes Hx Anesthesia Reactions: No Hx Malignant Hyperthermia: No Meds Allergies/Adverse Reactions: Allergies Allergy/AdvReac Type Severity Reaction Status Date / Time iodine Allergy SHORTNESS Verified 07/10/18 15:39 OF BREATH pneumococcal vaccine Allergy RASH Verified 07/04/18 16:01 Physical Exam - Constitutional Appears: Well, Non-toxic, No Acute Distress - Head Exam Head Exam: ATRAUMATIC, NORMAL INSPECTION, NORMOCEPHALIC - Eye Exam Eye Exam: EOMI, Normal appearance, PERRL Pupil Exam: NORMAL ACCOMODATION, PERRL - ENT Exam ENT Exam: Mucous Membranes Moist, Normal Exam - Neck Exam Neck exam: Positive for: Normal Inspection - Respiratory Exam Respiratory Exam: Clear to Auscultation Bilateral, NORMAL BREATHING PATTERN - Cardiovascular Exam Cardiovascular Exam: REGULAR RHYTHM, RRR, +S1, +S2 - GI/Abdominal Exam GI & Abdominal Exam: Normal Bowel Sounds, Soft. absent: Tenderness - Extremities Exam Extremities exam: Positive for: full ROM, normal capillary refill, normal inspection, pedal pulses present - Back Exam Back exam: NORMAL INSPECTION - Neurological Exam Neurological exam: Alert, CN II-XII Intact, Normal Gait, Oriented x3, Reflexes Normal - Psychiatric Exam Psychiatric exam: Normal Affect, Normal Mood - Skin Skin Exam: Dry, Intact, Normal Color, Warm Results - Vital Signs Recent Vital Signs: Last Vital Signs Temp 97.9 F 08/07/18 07:53 Pulse 83 08/07/18 07:53 Resp 18 08/07/18 07:53 BP 90/60 L 08/07/18 07:53 Pulse Ox 99 08/07/18 07:53 - Labs Result Diagrams: 08/06/18 14:09 08/06/18 14:09 Labs: Laboratory Results - last 24 hr 08/06/18 08/06/18 08/06/18 12:19 13:10 14:09 WBC 16.0 H D RBC 1.77 L Hgb 6.2 L* D Hct 19.6 L MCV 110.4 H D MCH 35.1 H MCHC 31.8 L RDW 28.1 H Plt Count 421 H MPV 7.5 Neut % (Auto) 78.2 H Lymph % (Auto) 12.3 L Schuyler % (Auto) 7.5 Eos % (Auto) 1.2 Baso % (Auto) 0.8 Neut # (Auto) 12.5 H Lymph # (Auto) 2.0 Schuyler # (Auto) 1.2 H Eos # (Auto) 0.2 Baso # (Auto) 0.1 PT INR APTT Sodium Potassium Chloride Carbon Dioxide Anion Gap BUN Creatinine Est GFR ( Amer) Est GFR (Non-Af Amer) POC Glucose (mg/dL) 120 H Random Glucose Calcium Total Bilirubin AST ALT Alkaline Phosphatase Troponin I Total Protein Albumin Globulin Albumin/Globulin Ratio Lipase Urine Color Mikala Urine Clarity Cloudy Urine pH 6.0 Ur Specific Beebe 1.021 Urine Protein 30 Urine Glucose (UA) Neg Urine Ketones Negative Urine Blood Large Urine Nitrate Negative Urine Bilirubin Negative Urine Urobilinogen 4.0 H Ur Leukocyte Esterase Neg Urine RBC (Auto) 4 H Urine Microscopic WBC 12 H Ur Squamous Epith Cells 18 H Urine Bacteria Rare Blood Type Antibody Screen Antibody Identification Crossmatch BBK History Checked 08/06/18 08/06/18 08/06/18 14:09 14:09 17:10 WBC RBC Hgb Hct MCV MCH MCHC RDW Plt Count MPV Neut % (Auto) Lymph % (Auto) Schuyler % (Auto) Eos % (Auto) Baso % (Auto) Neut # (Auto) Lymph # (Auto) Schuyler # (Auto) Eos # (Auto) Baso # (Auto) PT 11.3 INR 1.0 APTT 17.5 L Sodium 140 Potassium 4.0 Chloride 101 Carbon Dioxide 25 Anion Gap 18 BUN 17 Creatinine 0.5 L Est GFR ( Amer) > 60 Est GFR (Non-Af Amer) > 60 POC Glucose (mg/dL) Random Glucose 97 Calcium 8.8 Total Bilirubin 6.5 H AST 34 ALT 47 Alkaline Phosphatase 47 Troponin I < 0.0120 Total Protein 6.4 Albumin 3.6 Globulin 2.8 Albumin/Globulin Ratio 1.3 Lipase 40 Urine Color Urine Clarity Urine pH Ur Specific Beebe Urine Protein Urine Glucose (UA) Urine Ketones Urine Blood Urine Nitrate Urine Bilirubin Urine Urobilinogen Ur Leukocyte Esterase Urine RBC (Auto) Urine Microscopic WBC Ur Squamous Epith Cells Urine Bacteria Blood Type A POSITIVE Antibody Screen Positive Antibody Identification Anti S Crossmatch See Detail BBK History Checked Patient has bt Assessment & Plan (1) DVT prophylaxis Assessment and Plan: hold anticoag r/t anemia, itp scd and ae hose ambulation Status: Acute (2) Hemolytic anemia Assessment and Plan: heme/onc 2 units prbc rituxan steroids Status: Acute (3) Hyperthyroidism Assessment and Plan: cont home meds f/u tsh, t3,t4 Status: Acute (4) ITP (idiopathic thrombocytopenic purpura) Assessment and Plan: steroids heme/onc monitor Status: Acute Decision To Admit - Pt Status Changed To: Hospital Disposition Of: Inpatient - Admit Certification Admit to Inpatient:: After my assessment, the patient will require hospitalization for at least two midnights. This is because of the severity of symptoms shown, intensity of services needed, and/or the medical risk in this patient being treated as an outpatient. - . Bed Request Type: Telemetry Admitting Physician: Shelly Callahan
--- NOTE | 2018-08-08 07:49 | CP.PCM.PN ---
Subjective - Date & Time of Evaluation Date of Evaluation: 08/08/18 Time of Evaluation: 07:49 - Subjective Subjective: pt doing wel less fatigue and weaknesno fcnvd pending am labfor port today Objective - Vital Signs/Intake and Output Vital Signs (last 24 hours): Temp Pulse Resp BP Pulse Ox 98.7 F 19 L 81 H 99/58 L 99 08/08/18 07:28 08/08/18 07:28 08/08/18 07:28 08/08/18 07:28 08/08/18 05:00 Intake and Output: 08/08/18 08/08/18 06:59 18:59 Intake Total 650 Balance 650 - Medications Medications: Current Medications Famotidine (Pepcid) 20 mg PO Q12 [facility] Last Admin: 08/07/18 22:15 Dose: 20 mg Folic Acid (Folic Acid) 1 mg PO DAILY [facility] Last Admin: 08/07/18 11:23 Dose: 1 mg Gabapentin (Neurontin) 600 mg PO HS [facility] Last Admin: 08/07/18 22:15 Dose: 600 mg Hydrocortisone (Cortef) 20 mg PO QID [facility] Last Admin: 08/07/18 22:15 Dose: 20 mg Methimazole (Tapazole) 10 mg PO BID [facility] Last Admin: 08/07/18 18:04 Dose: 10 mg - Labs Labs: 08/06/18 14:09 08/06/18 14:09 PT 11.3 Seconds (9.8-13.1) 08/06/18 14:09 INR 1.0 08/06/18 14:09 APTT 17.5 Seconds (25.6-37.1) L 08/06/18 14:09 - Constitutional Appears: Well, Non-toxic, No Acute Distress - Head Exam Head Exam: ATRAUMATIC, NORMAL INSPECTION, NORMOCEPHALIC - Eye Exam Eye Exam: EOMI, Normal appearance, PERRL Pupil Exam: NORMAL ACCOMODATION, PERRL - ENT Exam ENT Exam: Mucous Membranes Moist, Normal Exam - Neck Exam Neck Exam: Full ROM, Normal Inspection. absent: Lymphadenopathy - Respiratory Exam Respiratory Exam: Clear to Ausculation Bilateral, NORMAL BREATHING PATTERN - Cardiovascular Exam Cardiovascular Exam: REGULAR RHYTHM, RRR, +S1, +S2. absent: Murmur - GI/Abdominal Exam GI & Abdominal Exam: Soft, Normal Bowel Sounds. absent: Tenderness - Extremities Exam Extremities Exam: Full ROM, Normal Capillary Refill, Normal Inspection. absent: Joint Swelling, Pedal Edema - Back Exam Back Exam: NORMAL INSPECTION - Neurological Exam Neurological Exam: Alert, Awake, CN II-XII Intact, Normal Gait, Oriented x3 - Psychiatric Exam Psychiatric exam: Normal Affect, Normal Mood - Skin Skin Exam: Dry, Intact, Normal Color, Warm Assessment and Plan (1) DVT prophylaxis Status: Acute (2) Hemolytic anemia Status: Acute (3) Hyperthyroidism Status: Acute (4) ITP (idiopathic thrombocytopenic purpura) Status: Acute - Assessment and Plan (Free Text) Assessment: (1) DVT prophylaxis Assessment and Plan: hold anticoag r/t anemia, itp scd and ae hose ambulation Status: Acute (2) Hemolytic anemia Assessment and Plan: heme/onc 2 units prbc rituxan steroids Status: Acute (3) Hyperthyroidism Assessment and Plan: cont home meds f/u tsh, t3,t4 Status: Acute (4) ITP (idiopathic thrombocytopenic purpura) Assessment and Plan: steroids heme/onc monitor Status: Acute
[2018-08-08 08:04] VITALS: O2SAT 98
--- NOTE | 2018-08-08 08:50 | CP.PCM.PN ---
Subjective - Date & Time of Evaluation Date of Evaluation: 08/08/18 Time of Evaluation: 08:44 - Subjective Subjective: Pt's vital signs are normal. no shortness of breath or bleeding. She received 2 units of blood yesterday and also the Rituximab which she tolerated well. Hemalathaas a very poor venous access, and sinc she will be needing rituximab and transfusions in the future, i feel she should have a life port placed. If her hgb is above 8.0gms she could go home today. If the port can be placed today ,it would facilitate things or else she will have to come as an out patient for the procedure. But the port should be in before her next treatment o n sunday next week. Objective - Vital Signs/Intake and Output Vital Signs (last 24 hours): Temp Pulse Resp BP Pulse Ox 98.6 F 99 H 20 105/71 98 08/08/18 08:04 08/08/18 08:04 08/08/18 08:04 08/08/18 08:04 08/08/18 08:04 Intake and Output: 08/08/18 08/08/18 06:59 18:59 Intake Total 650 Balance 650 - Medications Medications: Current Medications Famotidine (Pepcid) 20 mg PO Q12 REPLACED BY [facility] Last Admin: 08/07/18 22:15 Dose: 20 mg Folic Acid (Folic Acid) 1 mg PO DAILY REPLACED BY [facility] Last Admin: 08/07/18 11:23 Dose: 1 mg Gabapentin (Neurontin) 600 mg PO HS REPLACED BY [facility] Last Admin: 08/07/18 22:15 Dose: 600 mg Hydrocortisone (Cortef) 20 mg PO QID REPLACED BY [facility] Last Admin: 08/07/18 22:15 Dose: 20 mg Methimazole (Tapazole) 10 mg PO BID REPLACED BY [facility] Last Admin: 08/07/18 18:04 Dose: 10 mg - Labs Labs: 08/06/18 14:09 08/06/18 14:09 PT 11.3 Seconds (9.8-13.1) 08/06/18 14:09 INR 1.0 08/06/18 14:09 APTT 17.5 Seconds (25.6-37.1) L 08/06/18 14:09
[2018-08-08 10:05] LABS: HEMOGLOBIN 7.3 g/dL (12.0-16.0); MEAN CELL VOLUME 100.2 fl (81.0-99.0); MEAN CORPUSCULAR HEMOGLOBIN 33.6 pg (27.0-31.0); MEAN CORPUSCULAR HGB CONC 33.5 g/dL (33.0-37.0); RBC 2.16 Mil/uL (3.80-5.20); RED CELL DISTRIBUTION WIDTH 19.2 % (11.5-14.5); WHITE BLOOD COUNT 15.2 K/uL (4.8-10.8)
[2018-08-08 10:21] LABS: ALB/GLOB RATIO 1.2 (1.0-2.1); ALBUMIN 3.6 g/dL (3.5-5.0); ALT/SGPT 90 U/L (9-52); AST/SGOT 52 U/L (14-36); BLOOD UREA NITROGEN 17 mg/dl (7-17); CALCIUM 8.7 mg/dL (8.4-10.2); GFR NON-AFRICAN AMERICAN > 60
[2018-08-08 14:05] LABS: HEMOGLOBIN 7.6 g/dL (12.0-16.0); MEAN CELL VOLUME 99.9 fl (81.0-99.0); MEAN CORPUSCULAR HEMOGLOBIN 33.5 pg (27.0-31.0); MEAN CORPUSCULAR HGB CONC 33.6 g/dL (33.0-37.0); RBC 2.27 Mil/uL (3.80-5.20); RED CELL DISTRIBUTION WIDTH 19.4 % (11.5-14.5); WHITE BLOOD COUNT 16.6 K/uL (4.8-10.8)
[2018-08-08 14:33] LABS: INR 1.1; PROTHROMBIN TIME 12.7 Seconds (9.8-13.1)
[2018-08-08 14:36] LABS: PARTIAL THROMBOPLASTIN TIME 24.3 Seconds (25.6-37.1)
[2018-08-08 15:27] VITALS: BP 104/69; PULSE 101; RESP 17; TEMP 98.7
== END 2018-08-08 16:20 | disposition home or self-care (01) | DRG 897 ==
LOC: H.ER 11:53 → H.ERHOLD 15:07 → H.TEL 18:24
PROVIDERS: ADMIT Family Medicine; ATTEND Family Medicine
PROC: 30233N1 Transfusion of Nonautologous Red Blood Cells into Peripheral Vein, Percutaneous Approach (ICD-10-PCS; principal; 2018-08-07)
DX: D59.1 Other autoimmune hemolytic anemias (principal); D69.3 Immune thrombocytopenic purpura; E05.90 Thyrotoxicosis, unspecified without thyrotoxic crisis or storm; R17 Unspecified jaundice; Z87.891 Personal history of nicotine dependence; G62.9 Polyneuropathy, unspecified; Z88.7 Allergy status to serum and vaccine; Z91.041 Radiographic dye allergy status; J45.909 Unspecified asthma, uncomplicated

== ENCOUNTER 2018-08-11 20:02 | Inpatient (IN) | payer MEDICAID ==
[2018-08-11 20:02] VITALS: BMI 35.5
--- NOTE | 2018-08-11 20:43 | ED PDOC ---
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 Patient reports she has dyspnea with walking and mild lightheadedness but no associated fever, nausea, vomiting, or diarrhea. She states her symptoms are consistent with previous episodes of worsening anemia. PMD: Selina Aguiar Past Medical History Reviewed: Historical Data, Nursing Documentation, Vital Signs Vital Signs: Last Vital Signs Temp 98.5 F 08/11/18 20:03 Pulse 133 H 08/11/18 20:03 Resp 23 08/11/18 20:03 BP 94/56 L 08/11/18 20:03 Pulse Ox 100 08/11/18 20:24 - Medical History PMH: Anemia (autoimmune hemolytic ), Asthma, Hyperthyroidism Denies: Alzheimer's Disease, Anxiety, Arthritis, Atrial Fibrillation, Bipolar Disorder, Bronchitis, CAD, Cardia Arrhythmia, CHF, COPD, Crohn's Disease, Dementia, Depression, Diverticulitis, Emphysema, Fractures, Gastritis, Gall Bladder Disease, HIV, HTN, Hypercholesterolemia, Hypothyroidism, Kidney Stones, Migraine, Mitral Valve Prolapse, Multiple Sclerosis, Osteoporosis, Pancreatitis, Paranoia, Parkinson's Disease, Peripheral Edema, Pneumonia, Post Traumatic St ress Disorder, Pulmonary Embolism, Chronic Kidney Disease, Rheumatoid Arthritis, Schizophrenia, Seizures, Sickle Cell Disease, Sexually Transmitted Disease, Sleep Apnea, TIA - Surgical History Surgical History: Denies: Appendectomy, CABG, Carotid Endarterectomy, Cholecystectomy, Coronary Stent, Pacemaker, Tonsillectomy Other surgeries: splenectomy - Family History Family History: States: Diabetes, Hypertension - Social History Current smoker - smoking cessation education provided: No Ex-Smoker (has not smoked in the last 12 months): No Alcohol: None - Immunization History Hx Tetanus Toxoid Vaccination: No - Home Medications Home Medications: Ambulatory Orders Medication Instructions Recorded RX: Gabapentin [Neurontin] 600 mg PO HS 11/29/18 RX: Naproxen [Naprosyn] 500 mg PO DAILY 06/20/18 RX: methIMAzole [Tapazole] 10 mg PO BID #60 tab 06/28/18 RX: Famotidine [Pepcid] 20 mg PO Q12 #60 tab 07/15/18 RX: Folic Acid 1 mg PO DAILY #30 tab 07/15/18 RX: Hydrocortisone [Cortef] 20 mg PO QID #56 tab 07/15/18 RX: Hyaluronate Sodium [Euflexxa] 2 ml IA QWK 08/06/18 - Allergies Allergies/Adverse Reactions: Allergies Allergy/AdvReac Type Severity Reaction Status Date / Time iodine Allergy SHORTNESS Verified 07/10/18 15:39 OF BREATH pneumococcal vaccine Allergy RASH Verified 07/04/18 16:01 Review of Systems ROS Statement: Except As Marked, All Systems Reviewed And Found Negative Constitutional: Negative for: Fever Cardiovascular: Positive for: Light Headedness Respiratory: Positive for: Shortness of Breath Gastrointestinal: Negative for: Nausea, Vomiting, Diarrhea Physical Exam - Reviewed Nursing Documentation Reviewed: Yes Vital Signs Reviewed: Yes - Physical Exam Appears: Positive for: No Acute Distress Head Exam: Positive for: ATRAUMATIC, NORMOCEPHALIC Skin: Positive for: Pallor, Jaundice Eye Exam: Positive for: EOMI, Normal appearance, PERRL ENT: Positive for: Normal ENT Inspection Neck: Positive for: Normal, Painless ROM Cardiovascular/Chest: Positive for: Tachycardia Respiratory: Positive for: Normal Breath Sounds Gastrointestinal/Abdominal: Positive for: Normal Exam, Soft. Negative for: Tenderness Extremity: Positive for: Normal ROM (upper and lower) Neurologic/Psych: Positive for: Alert, Oriented (x3) - Laboratory Results Result Diagrams: 08/11/18 20:50 08/11/18 20:50 - ECG O2 Sat by Pulse Oximetry: 100 (RA) Pulse Ox Interpretation: Normal Medical Decision Making Medical Decision Making: Time: 2016 Impression: 37 year old with symptomatic anemia in setting of known autoimmune hemolytic anemia Plan: --Labs --EKG Time: 2127 --Labs reviewed, significant for depressed hemoglobin at 3.5, blood transfusion consent obtained. Case discussed with Dr. Lisa Shelby. Patient will be admitted to [facility]. Diagnosis autoimmune hemolytic anemia. Condition fair. Scribe Attestation: Documented by Vidhi Lovelace, acting as a scribe for Danilo Bose MD. Provider Scribe Attestation: All medical record entries made by the Scribe were at my direction and personally dictated by me. I have reviewed the chart and agree that the record accurately reflects my personal performance of the history, physical exam, medical decision making, and the department course for this patient. I have also personally directed, reviewed, and agree with the discharge instructions and disposition. Disposition - Clinical Impression Clinical Impression: Hemolytic anemia - Patient ED Disposition Is Patient to be Admitted: Yes Discussed With DrOleg: Scottie Queen - Disposition Disposition Time: 21:28 Condition: FAIR - Pt Status Changed To: Hospital Disposition Of: Inpatient - Admit Certification Admit to Inpatient:: After my assessment, the patient will require hospitalization for at least two midnights. This is because of the severity of symptoms shown, intensity of services needed, and/or the medical risk in this patient being treated as an outpatient.
[2018-08-11 20:53] LABS: BASO # 0.1 K/uL (0.0-0.2); BASO % 0.3 % (0.0-2.0); EOS # 0.1 K/uL (0.0-0.7); EOS % 0.4 % (0.0-4.0); LYMPH # 2.4 K/uL (1.0-4.3); LYMPH % 11.4 % (20.0-40.0); MEAN CELL VOLUME 101.3 fl (81.0-99.0); MEAN CORPUSCULAR HEMOGLOBIN 33.7 pg (27.0-31.0); MEAN CORPUSCULAR HGB CONC 33.3 g/dL (33.0-37.0); MEAN PLATELET VOLUME 7.6 fl (7.2-11.7); MONO # 1.1 K/uL (0.0-0.8); MONO % 5.2 % (0.0-10.0); NEUT # 17.6 K/uL (1.8-7.0); NEUT % 82.7 % (50.0-75.0); NRBC % 1.9 % (0.0-0.0); RBC 1.03 Mil/uL (3.80-5.20); RED CELL DISTRIBUTION WIDTH 15.3 % (11.5-14.5); WHITE BLOOD COUNT 21.4 K/uL (4.8-10.8)
[2018-08-11 21:03] LABS: HEMOGLOBIN 3.5 g/dL (12.0-16.0); INR 1.1; PROTHROMBIN TIME 12.3 Seconds (9.8-13.1)
[2018-08-11 21:06] LABS: PARTIAL THROMBOPLASTIN TIME 23.7 Seconds (25.6-37.1)
[2018-08-11 21:15] LABS: ALB/GLOB RATIO 1.3 (1.0-2.1); ALBUMIN 3.8 g/dL (3.5-5.0); ALT/SGPT 102 U/L (9-52); AST/SGOT 57 U/L (14-36); BLOOD UREA NITROGEN 19 mg/dl (7-17); CALCIUM 8.5 mg/dL (8.4-10.2); GFR NON-AFRICAN AMERICAN > 60
[2018-08-11] MEDS ORDERED: DiphenhydrAMINE 50 mg/ml Inj IV STA (21:15)
[2018-08-11] MEDS ORDERED: HYALURONATE SODIUM IA SCH (22:00)
--- NOTE | 2018-08-12 08:05 | CP.PCM.HP ---
History of Present Illness - History of Present Illness History of Present Illness: pt admitted for persistant anemia. this occurance 3.5 hgb. no f/c, n/v/d. c/o dyspnea/palpitations/tachycardia w/ any exertion. bw noted. pending transfsion- blood now available. er d/c case d/wheme/onc dr terry. pt is for port tomorrow and ritxan wed Present on Admission - Present on Admission Any Indicators Present on Admission: No Review of Systems - Constitutional Constitutional: As Per HPI, Weakness - Cardiovascular Cardiovascular: As Per HPI, Palpitations, Rapid Heart Rate Past Patient History - Past Medical History & Family History Past Medical History?: Yes - Past Social History Alcohol: None - CARDIAC Hx Atrial Fibrillation: No Hx Cardia Arrhythmia: No Hx Congestive Heart Failure: No Hx Hypercholesterolemia: No Hx Hypertension: No Hx Mitral Valve Prolapse: No Hx Pacemaker: No Hx Peripheral Edema: No - PULMONARY Hx Asthma: Yes Hx Bronchitis: No Hx Chronic Obstructive Pulmonary Disease (COPD): No Hx Emphysema: No Hx Pneumonia: No Hx Pulmonary Embolism: No Hx Sleep Apnea: No - NEUROLOGICAL Hx Alzheimer's Disease: No Hx Dementia: No Hx Migraine: No Hx Multiple Sclerosis: No Hx Parkinson's Disease: No Hx Seizures: No Hx Transient Ischemic Attacks (TIA): No - HEENT Hx HEENT Problems: No Hx Blind: No Hx Cataracts: No Hx Deafness: No Hx Difficulty Chewing: No Hx Epistaxis: No Hx Glaucoma: No Hx Macular Degeneration: No - RENAL Hx Chronic Kidney Disease: No Hx Kidney Stones: No - ENDOCRINE/METABOLIC Hx Hyperthyroidism: Yes Hx Hypothyroidism: No - HEMATOLOGICAL/ONCOLOGICAL Hx Anemia: Yes (autoimmune hemolytic ) Hx Human Immunodeficiency Virus (HIV): No Hx Sickle Cell Disease: No - INTEGUMENTARY Hx Dermatological Problems: No Hx Basil Cell: No Hx Ayoub: No Hx Cellulitis: No Hx Eczema: No Hx Melanoma: No Hx Psoriasis: No Hx Squamous Cell: No - MUSCULOSKELETAL/RHEUMATOLOGICAL Hx Arthritis: No Hx Fractures: No Hx Osteoporosis: No Hx Rheumatoid Arthritis: No - GASTROINTESTINAL Hx Crohn's Disease: No Hx Diverticulitis: No Hx Gall Bladder Disease: No Hx Gastritis: No Hx Pancreatitis: No - GENITOURINARY/GYNECOLOGICAL Hx Sexually Transmitted Disorders: No - PSYCHIATRIC Hx Anxiety: No Hx Bipolar Disorder: No Hx Depression: No Hx Paranoia: No Hx Post Traumatic Stress Disorder: No Hx Schizophrenia: No - SURGICAL HISTORY Hx Appendectomy: No Hx Carotid Endarterectomy: No Hx Cholecystectomy: No Hx Coronary Artery Bypass Graft: No Hx Coronary Stent: No Hx Tonsillectomy: No - ANESTHESIA Hx Anesthesia: Yes Hx Anesthesia Reactions: No Hx Malignant Hyperthermia: No Meds Allergies/Adverse Reactions: Allergies Allergy/AdvReac Type Severity Reaction Status Date / Time iodine Allergy SHORTNESS Verified 07/10/18 15:39 OF BREATH pneumococcal vaccine Allergy RASH Verified 07/04/18 16:01 Physical Exam - Constitutional Appears: Well, Non-toxic, No Acute Distress - Head Exam Head Exam: ATRAUMATIC, NORMAL INSPECTION, NORMOCEPHALIC - Eye Exam Eye Exam: EOMI, Normal appearance, PERRL Pupil Exam: NORMAL ACCOMODATION, PERRL - ENT Exam ENT Exam: Mucous Membranes Moist, Normal Exam - Neck Exam Neck exam: Positive for: Normal Inspection - Respiratory Exam Respiratory Exam: Clear to Auscultation Bilateral, NORMAL BREATHING PATTERN - Cardiovascular Exam Cardiovascular Exam: REGULAR RHYTHM, RRR, +S1, +S2 - GI/Abdominal Exam GI & Abdominal Exam: Normal Bowel Sounds, Soft. absent: Tenderness - Extremities Exam Extremities exam: Positive for: full ROM, normal capillary refill, normal inspection, pedal pulses present - Back Exam Back exam: FULL ROM, NORMAL INSPECTION - Neurological Exam Neurological exam: Alert, CN II-XII Intact, Normal Gait, Oriented x3, Reflexes Normal - Psychiatric Exam Psychiatric exam: Normal Affect, Normal Mood - Skin Skin Exam: Dry, Intact, Normal Color, Warm Additional comments: jandice Results - Vital Signs Recent Vital Signs: Last Vital Signs Temp 100.1 F H 08/12/18 05:21 Pulse 119 H 08/12/18 05:21 Resp 16 08/12/18 05:21 BP 103/62 08/12/18 05:21 Pulse Ox 100 08/12/18 05:37 - Labs Result Diagrams: 08/11/18 20:50 08/11/18 20:50 Labs: Laboratory Results - last 24 hr 08/11/18 08/11/18 08/11/18 20:48 20:49 20:50 WBC 21.4 H RBC 1.03 L Hgb 3.5 L* D Hct 10.4 L MCV 101.3 H MCH 33.7 H MCHC 33.3 RDW 15.3 H Plt Count 258 MPV 7.6 Neut % (Auto) 82.7 H Lymph % (Auto) 11.4 L Clinton % (Auto) 5.2 Eos % (Auto) 0.4 Baso % (Auto) 0.3 Neut # (Auto) 17.6 H Lymph # (Auto) 2.4 [place] # (Auto) 1.1 H Eos # (Auto) 0.1 Baso # (Auto) 0.1 PT INR APTT Sodium Potassium Chloride Carbon Dioxide Anion Gap BUN Creatinine Est GFR ( Amer) Est GFR (Non-Af Amer) Random Glucose Lactic Acid 2.0 Calcium Magnesium Total Bilirubin AST ALT Alkaline Phosphatase Lactate Dehydrogenase Troponin I Total Protein Albumin Globulin Albumin/Globulin Ratio Blood Type A POSITIVE Antibody Screen Positive Crossmatch See Detail BBK History Checked Patient has bt 08/11/18 08/11/18 20:50 20:50 WBC RBC Hgb Hct MCV MCH MCHC RDW Plt Count MPV Neut % (Auto) Lymph % (Auto) Clinton % (Auto) Eos % (Auto) Baso % (Auto) Neut # (Auto) Lymph # (Auto) [place] # (Auto) Eos # (Auto) Baso # (Auto) PT 12.3 INR 1.1 APTT 23.7 L Sodium 137 Potassium 4.1 Chloride 100 Carbon Dioxide 25 Anion Gap 16 BUN 19 H Creatinine 0.6 L Est GFR ( Amer) > 60 Est GFR (Non-Af Amer) > 60 Random Glucose 121 H Lactic Acid Calcium 8.5 Magnesium 2.0 Total Bilirubin 10.4 H AST 57 H ALT 102 H Alkaline Phosphatase 55 Lactate Dehydrogenase 1166 H Troponin I 0.0320 Total Protein 6.6 Albumin 3.8 Globulin 2.9 Albumin/Globulin Ratio 1.3 Blood Type Antibody Screen Crossmatch BBK History Checked Assessment & Plan (1) Hemolytic anemia Assessment and Plan: transfuse 3 nits prbc as per heme/onc heme/onc consult port tomorrow rituxan wed monitor cbc Status: Acute (2) DVT prophylaxis Assessment and Plan: scd and aehose ambulation no anticoag r/t low hgb Status: Acute (3) ITP (idiopathic thrombocytopenic purpura) Assessment and Plan: monitor, heme/onc steroids Status: Acute Decision To Admit - Pt Status Changed To: Hospital Disposition Of: Inpatient - Admit Certification Admit to Inpatient:: After my assessment, the patient will require hospitalization for at least two midnights. This is because of the severity of symptoms shown, intensity of services needed, and/or the medical risk in this patient being treated as an outpatient. - . Bed Request Type: Telemetry Admitting Physician: Shelly Callahan
[2018-08-12] MEDS: Naproxen 500 MG TAB PO SCH (08:47)
--- NOTE | 2018-08-12 09:18 | CARD ---
APPROVED REPORT Date of service: 08/11/2018 EKG Measurement Heart [id number] <Conclusion> Sinus tachycardia Nonspecific ST and T wave abnormality Abnormal ECG
--- NOTE | 2018-08-12 09:34 | CP.PCM.CON ---
History of Present Illness - History of Present Illness History of Present Illness: This is a 37 yrs old female who was diagnosed to have a auto immune hemolytic anemia about 2 months ago.She did not respond to steroids and was started on rituxan. She did well initially, but now is being admitted almost every5-6 days with anemia. This time she comes in with a count of 3.6gms. Shr is still on steroids and rituximab weekly. Pt however is still jaundiced, weak, short of breath on exertion. We will give her transfusions today and rituximab on sunday. 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 Past Patient History - Past Medical History & Family History Past Medical History?: Yes - Past Social History Alcohol: None - CARDIAC Hx Atrial Fibrillation: No Hx Cardia Arrhythmia: No Hx Congestive Heart Failure: No Hx Hypercholesterolemia: No Hx Hypertension: No Hx Mitral Valve Prolapse: No Hx Pacemaker: No Hx Peripheral Edema: No - PULMONARY Hx Asthma: Yes Hx Bronchitis: No Hx Chronic Obstructive Pulmonary Disease (COPD): No Hx Emphysema: No Hx Pneumonia: No Hx Pulmonary Embolism: No Hx Sleep Apnea: No - NEUROLOGICAL Hx Alzheimer's Disease: No Hx Dementia: No Hx Migraine: No Hx Multiple Sclerosis: No Hx Parkinson's Disease: No Hx Seizures: No Hx Transient Ischemic Attacks (TIA): No - HEENT Hx HEENT Problems: No Hx Blind: No Hx Cataracts: No Hx Deafness: No Hx Difficulty Chewing: No Hx Epistaxis: No Hx Glaucoma: No Hx Macular Degeneration: No - RENAL Hx Chronic Kidney Disease: No Hx Kidney Stones: No - ENDOCRINE/METABOLIC Hx Hyperthyroidism: Yes Hx Hypothyroidism: No - HEMATOLOGICAL/ONCOLOGICAL Hx Anemia: Yes (autoimmune hemolytic ) Hx Human Immunodeficiency Virus (HIV): No Hx Sickle Cell Disease: No - INTEGUMENTARY Hx Dermatological Problems: No Hx Basil Cell: No Hx Ayoub: No Hx Cellulitis: No Hx Eczema: No Hx Melanoma: No Hx Psoriasis: No Hx Squamous Cell: No - MUSCULOSKELETAL/RHEUMATOLOGICAL Hx Arthritis: No Hx Fractures: No Hx Osteoporosis: No Hx Rheumatoid Arthritis: No - GASTROINTESTINAL Hx Crohn's Disease: No Hx Diverticulitis: No Hx Gall Bladder Disease: No Hx Gastritis: No Hx Pancreatitis: No - GENITOURINARY/GYNECOLOGICAL Hx Sexually Transmitted Disorders: No - PSYCHIATRIC Hx Anxiety: No Hx Bipolar Disorder: No Hx Depression: No Hx Paranoia: No Hx Post Traumatic Stress Disorder: No Hx Schizophrenia: No - SURGICAL HISTORY Hx Appendectomy: No Hx Carotid Endarterectomy: No Hx Cholecystectomy: No Hx Coronary Artery Bypass Graft: No Hx Coronary Stent: No Hx Tonsillectomy: No - ANESTHESIA Hx Anesthesia: Yes Hx Anesthesia Reactions: No Hx Malignant Hyperthermia: No Meds Allergies/Adverse Reactions: Allergies Allergy/AdvReac Type Severity Reaction Status Date / Time iodine Allergy SHORTNESS Verified 07/10/18 15:39 OF BREATH pneumococcal vaccine Allergy RASH Verified 07/04/18 16:01 - Medications Medications: Current Medications Famotidine (Pepcid) 20 mg PO Q12 [facility] Last Admin: 08/12/18 08:46 Dose: 20 mg Folic Acid (Folic Acid) 1 mg PO DAILY [facility] Last Admin: 08/12/18 08:46 Dose: 1 mg Gabapentin (Neurontin) 600 mg PO HS [facility] Last Admin: 08/11/18 23:00 Dose: 600 mg Home Med (Hyaluronate Sodium [Euflexxa]) 2 ml IA QWK [facility] Hydrocortisone (Cortef) 20 mg PO QID [facility] Last Admin: 08/12/18 08:46 Dose: 20 mg Methimazole (Tapazole) 10 mg PO BID [facility] Last Admin: 08/12/18 08:47 Dose: 10 mg Naproxen (Naproxen) 500 mg PO DAILY [facility] Last Admin: 08/12/18 08:47 Dose: 500 mg Physical Exam - Additional Findings Additional findings: Physical exam: alert,well oriented ,icteric sclera. Neck; supple, no adenopathy Chest; Clear, no rales or rhonchi Heart; RSR, no murmur Abd; Obese, no mass,palpable. Results - Vital Signs Recent Vital Signs: Last Vital Signs Temp 98.5 F 08/12/18 08:26 Pulse 124 H 08/12/18 08:26 Resp 20 08/12/18 08:26 BP 90/59 L 08/12/18 08:26 Pulse Ox 98 08/12/18 08:26 - Labs Result Diagrams: 08/11/18 20:50 08/11/18 20:50 Labs: Laboratory Results - last 24 hr 08/11/18 08/11/18 08/11/18 20:48 20:49 20:50 WBC 21.4 H RBC 1.03 L Hgb 3.5 L* D Hct 10.4 L MCV 101.3 H MCH 33.7 H MCHC 33.3 RDW 15.3 H Plt Count 258 MPV 7.6 Neut % (Auto) 82.7 H Lymph % (Auto) 11.4 L [place] % (Auto) 5.2 Eos % (Auto) 0.4 Baso % (Auto) 0.3 Neut # (Auto) 17.6 H Lymph # (Auto) 2.4 [place] # (Auto) 1.1 H Eos # (Auto) 0.1 Baso # (Auto) 0.1 PT INR APTT Sodium Potassium Chloride Carbon Dioxide Anion Gap BUN Creatinine Est GFR ( Amer) Est GFR (Non-Af Amer) Random Glucose Lactic Acid 2.0 Calcium Magnesium Total Bilirubin AST ALT Alkaline Phosphatase Lactate Dehydrogenase Troponin I Total Protein Albumin Globulin Albumin/Globulin Ratio Blood Type A POSITIVE Antibody Screen Positive Antibody Identification Anti S PEDRITO, Poly Interpret Positive H Crossmatch See Detail BBK History Checked Patient has bt 08/11/18 08/11/18 20:50 20:50 WBC RBC Hgb Hct MCV MCH MCHC RDW Plt Count MPV Neut % (Auto) Lymph % (Auto) [place] % (Auto) Eos % (Auto) Baso % (Auto) Neut # (Auto) Lymph # (Auto) [place] # (Auto) Eos # (Auto) Baso # (Auto) PT 12.3 INR 1.1 APTT 23.7 L Sodium 137 Potassium 4.1 Chloride 100 Carbon Dioxide 25 Anion Gap 16 BUN 19 H Creatinine 0.6 L Est GFR ( Amer) > 60 Est GFR (Non-Af Amer) > 60 Random Glucose 121 H Lactic Acid Calcium 8.5 Magnesium 2.0 Total Bilirubin 10.4 H AST 57 H ALT 102 H Alkaline Phosphatase 55 Lactate Dehydrogenase 1166 H Troponin I 0.0320 Total Protein 6.6 Albumin 3.8 Globulin 2.9 Albumin/Globulin Ratio 1.3 Blood Type Antibody Screen Antibody Identification PEDRITO, Poly Interpret Crossmatch BBK History Checked Assessment & Plan - Assessment and Plan (Free Text) Assessment: Impression; Autoimmune hemolytic anemia. Plan: plan; Will transfuse her packed cells with premedication and give her rituximab on sunday. I will also see if I can get her to see someone at [facility] or at [facility]. - Date & Time Date: 08/12/18 Time: 09:40
[2018-08-12] MEDS ORDERED: MethylPREDNISolone 40 mg Vial IVP STA (10:53)
[2018-08-13 05:50] LABS: ALB/GLOB RATIO 1.1 (1.0-2.1); ALBUMIN 3.4 g/dL (3.5-5.0); ALT/SGPT 148 U/L (9-52); AST/SGOT 62 U/L (14-36); BASO # 0.1 K/uL (0.0-0.2); BASO % 0.3 % (0.0-2.0); BLOOD UREA NITROGEN 20 mg/dl (7-17); CALCIUM 8.5 mg/dL (8.4-10.2); EOS % 0.2 % (0.0-4.0); GFR NON-AFRICAN AMERICAN > 60; LYMPH # 1.3 K/uL (1.0-4.3); LYMPH % 7.7 % (20.0-40.0); MEAN CELL VOLUME 93.7 fl (81.0-99.0); MEAN CORPUSCULAR HGB CONC 35.2 g/dL (33.0-37.0); MEAN PLATELET VOLUME 8.1 fl (7.2-11.7); NEUT # 14.9 K/uL (1.8-7.0); NEUT % 85.8 % (50.0-75.0); NRBC % 0.1 % (0.0-0.0); PLATELET COUNT 191 K/uL (130-400); WHITE BLOOD COUNT 17.4 K/uL (4.8-10.8)
[2018-08-13 06:02] LABS: HEMOGLOBIN 6.3 g/dL (12.0-16.0)
--- NOTE | 2018-08-13 08:45 | CP.PCM.PN ---
Subjective - Date & Time of Evaluation Date of Evaluation: 08/13/18 Time of Evaluation: 08:43 - Subjective Subjective: pt doing well.w/o fcnvd less jaudnice/fatigued today. bw noted. heme/onc consult noted hgb today 6.3 pt for xfer to [facility]. pending bed. Objective - Vital Signs/Intake and Output Vital Signs (last 24 hours): Temp Pulse Resp BP Pulse Ox 97.9 F 76 18 93/59 L 99 08/13/18 08:03 08/13/18 08:03 08/13/18 08:03 08/13/18 08:03 08/13/18 08:03 - Medications Medications: Current Medications Famotidine (Pepcid) 20 mg PO Q12 [facility] Last Admin: 08/12/18 21:05 Dose: 20 mg Folic Acid (Folic Acid) 1 mg PO DAILY [facility] Last Admin: 08/12/18 08:46 Dose: 1 mg Gabapentin (Neurontin) 600 mg PO HS [facility] Last Admin: 08/12/18 21:05 Dose: 600 mg Home Med (Hyaluronate Sodium [Euflexxa]) 2 ml IA QWK [facility] Hydrocortisone (Cortef) 20 mg PO QID [facility] Last Admin: 08/12/18 21:05 Dose: 20 mg Methimazole (Tapazole) 10 mg PO BID [facility] Last Admin: 08/12/18 17:15 Dose: 10 mg Naproxen (Naproxen) 500 mg PO DAILY [facility] Last Admin: 08/12/18 08:47 Dose: 500 mg - Labs Labs: 08/13/18 04:30 08/13/18 04:30 PT 12.3 Seconds (9.8-13.1) 08/11/18 20:50 INR 1.1 08/11/18 20:50 APTT 23.7 Seconds (25.6-37.1) L 08/11/18 20:50 - Constitutional Appears: Well, Non-toxic, No Acute Distress - Head Exam Head Exam: ATRAUMATIC, NORMAL INSPECTION, NORMOCEPHALIC - Eye Exam Eye Exam: EOMI, Normal appearance, PERRL Pupil Exam: NORMAL ACCOMODATION, PERRL - ENT Exam ENT Exam: Mucous Membranes Moist, Normal Exam - Neck Exam Neck Exam: Full ROM, Normal Inspection. absent: Lymphadenopathy - Respiratory Exam Respiratory Exam: Clear to Ausculation Bilateral, NORMAL BREATHING PATTERN - Cardiovascular Exam Cardiovascular Exam: REGULAR RHYTHM, RRR, +S1, +S2. absent: Murmur - GI/Abdominal Exam GI & Abdominal Exam: Soft, Normal Bowel Sounds. absent: Tenderness - Extremities Exam Extremities Exam: Full ROM, Normal Capillary Refill, Normal Inspection. absent: Joint Swelling, Pedal Edema - Back Exam Back Exam: NORMAL INSPECTION - Neurological Exam Neurological Exam: Alert, Awake, CN II-XII Intact, Normal Gait, Oriented x3 - Psychiatric Exam Psychiatric exam: Normal Affect, Normal Mood - Skin Skin Exam: Dry, Intact, Normal Color, Warm Assessment and Plan (1) Hemolytic anemia Status: Acute (2) DVT prophylaxis Status: Acute (3) ITP (idiopathic thrombocytopenic purpura) Status: Acute - Assessment and Plan (Free Text) Assessment: (1) Hemolytic anemia Assessment and Plan: transfuse 3 nits prbc as per heme/onc heme/onc consult port tomorrow rituxan wed monitor cbc Status: Acute (2) DVT prophylaxis Assessment and Plan: scd and aehose ambulation no anticoag r/t low hgb Status: Acute (3) ITP (idiopathic thrombocytopenic purpura) Assessment and Plan: monitor, heme/onc steroids Status: Acute pending bed [place]
--- NOTE | 2018-08-13 08:46 | CP.PCM.PN ---
Subjective - Date & Time of Evaluation Date of Evaluation: 08/13/18 Time of Evaluation: 08:39 - Subjective Subjective: Post transfusion CBC shows a HGB of 6.3gms. Her sy, and she is no longer short of breath, and other symptoms are better. She is to be transferred to [facility] . Waiting for a bed. If she is still here tomorrow,will give the rituxan. Objective - Vital Signs/Intake and Output Vital Signs (last 24 hours): Temp Pulse Resp BP Pulse Ox 97.9 F 76 18 93/59 L 99 08/13/18 08:03 08/13/18 08:03 08/13/18 08:03 08/13/18 08:03 08/13/18 08:03 - Medications Medications: Current Medications Famotidine (Pepcid) 20 mg PO Q12 [facility] Last Admin: 08/12/18 21:05 Dose: 20 mg Folic Acid (Folic Acid) 1 mg PO DAILY [facility] Last Admin: 08/12/18 08:46 Dose: 1 mg Gabapentin (Neurontin) 600 mg PO HS [facility] Last Admin: 08/12/18 21:05 Dose: 600 mg Home Med (Hyaluronate Sodium [Euflexxa]) 2 ml IA QWK [facility] Hydrocortisone (Cortef) 20 mg PO QID [facility] Last Admin: 08/12/18 21:05 Dose: 20 mg Methimazole (Tapazole) 10 mg PO BID [facility] Last Admin: 08/12/18 17:15 Dose: 10 mg Naproxen (Naproxen) 500 mg PO DAILY [facility] Last Admin: 08/12/18 08:47 Dose: 500 mg - Labs Labs: 08/13/18 04:30 08/13/18 04:30 PT 12.3 Seconds (9.8-13.1) 08/11/18 20:50 INR 1.1 08/11/18 20:50 APTT 23.7 Seconds (25.6-37.1) L 08/11/18 20:50
[2018-08-13 10:21] LABS: BANDS 1 % (0-2); LYMPHOCYTE 12 % (20-50); MONOCYTE 8 % (0-10); MYELOCYTE 1 % (0-0); NEUTROPHIL 77 % (42-75); REACTIVE LYMPHOCYTES 1 % (0-0); TOTAL CELLS COUNTED 100
[2018-08-13 10:25] LABS: ACANTHOCYTES SLIGHT; HYPOCHROMIC MODERATE; OVALOCYTES SLIGHT; PLATELET ESTIMATE NORMAL (NORMAL); POLYCHROMIC SLIGHT; TEARDROP CELLS SLIGHT; TOXIC GRANULATION PRESENT
[2018-08-13] MEDS: Naproxen 500 MG TAB PO SCH (10:48)
[2018-08-13 21:00] LABS: SQUAMOUS EPITHIAL 3 /hpf (0-5); URINE BILIRUBIN NEGATIVE (NEGATIVE); URINE BLOOD NEGATIVE (NEGATIVE); URINE CLARITY CLEAR (Clear); URINE COLOR AMBER (YELLOW); URINE GLUCOSE (UA) NEG (NEGATIVE); URINE LEUKOCYTE ESTERASE NEG Leu/uL (Negative); URINE PROTEIN NEGATIVE (NEGATIVE)
[2018-08-14 06:12] LABS: BASO % 0.2 % (0.0-2.0); EOS % 0.3 % (0.0-4.0); LYMPH # 1.5 K/uL (1.0-4.3); LYMPH % 9.5 % (20.0-40.0); MEAN CELL VOLUME 92.6 fl (81.0-99.0); MEAN CORPUSCULAR HGB CONC 34.6 g/dL (33.0-37.0); MEAN PLATELET VOLUME 8.6 fl (7.2-11.7); MONO # 0.7 K/uL (0.0-0.8); MONO % 4.5 % (0.0-10.0); NEUT # 13.9 K/uL (1.8-7.0); NEUT % 85.5 % (50.0-75.0); NRBC % 0.2 % (0.0-0.0); RBC 1.96 Mil/uL (3.80-5.20); RED CELL DISTRIBUTION WIDTH 14.5 % (11.5-14.5); WHITE BLOOD COUNT 16.3 K/uL (4.8-10.8)
[2018-08-14 06:16] LABS: HEMOGLOBIN 6.3 g/dL (12.0-16.0)
--- NOTE | 2018-08-14 08:18 | CP.PCM.PN ---
Subjective - Date & Time of Evaluation Date of Evaluation: 08/14/18 Time of Evaluation: 08:16 - Subjective Subjective: pt doing well. no dyspnea. appears more jaundiced. no f/c, n/v/d. bw noted. pending [facility] bed for xfer Objective - Vital Signs/Intake and Output Vital Signs (last 24 hours): Temp Pulse Resp BP Pulse Ox 97.8 F 81 20 98/66 L 98 08/14/18 08:14 08/14/18 08:14 08/14/18 08:14 08/14/18 08:14 08/14/18 08:14 Intake and Output: 08/14/18 08/14/18 06:59 18:59 Intake Total 274 Balance 274 - Medications Medications: Current Medications Famotidine (Pepcid) 20 mg PO Q12 [facility] Last Admin: 08/13/18 21:03 Dose: 20 mg Folic Acid (Folic Acid) 1 mg PO DAILY [facility] Last Admin: 08/13/18 10:48 Dose: 1 mg Gabapentin (Neurontin) 600 mg PO HS [facility] Last Admin: 08/13/18 22:41 Dose: 600 mg Hydrocortisone (Cortef) 20 mg PO QID [facility] Last Admin: 08/13/18 21:03 Dose: 20 mg Methimazole (Tapazole) 10 mg PO BID [facility] Last Admin: 08/13/18 17:57 Dose: 10 mg Naproxen (Naproxen) 500 mg PO DAILY [facility] Last Admin: 08/13/18 10:48 Dose: 500 mg - Labs Labs: 08/14/18 04:40 08/13/18 04:30 PT 12.3 Seconds (9.8-13.1) 08/11/18 20:50 INR 1.1 08/11/18 20:50 APTT 23.7 Seconds (25.6-37.1) L 08/11/18 20:50 - Constitutional Appears: Well, Non-toxic, No Acute Distress - Head Exam Head Exam: ATRAUMATIC, NORMAL INSPECTION, NORMOCEPHALIC - Eye Exam Eye Exam: EOMI, Normal appearance, PERRL Pupil Exam: NORMAL ACCOMODATION, PERRL - ENT Exam ENT Exam: Mucous Membranes Moist, Normal Exam - Neck Exam Neck Exam: Full ROM, Normal Inspection. absent: Lymphadenopathy - Respiratory Exam Respiratory Exam: Clear to Ausculation Bilateral, NORMAL BREATHING PATTERN - Cardiovascular Exam Cardiovascular Exam: REGULAR RHYTHM, RRR, +S1, +S2. absent: Murmur - GI/Abdominal Exam GI & Abdominal Exam: Soft, Normal Bowel Sounds. absent: Tenderness - Extremities Exam Extremities Exam: Full ROM, Normal Capillary Refill, Normal Inspection. absent: Joint Swelling, Pedal Edema - Back Exam Back Exam: NORMAL INSPECTION - Neurological Exam Neurological Exam: Alert, Awake, CN II-XII Intact, Normal Gait, Oriented x3 - Psychiatric Exam Psychiatric exam: Normal Affect, Normal Mood - Skin Skin Exam: Dry, Intact, Normal Color, Warm Additional comments: jaundice Assessment and Plan (1) Hemolytic anemia Status: Acute (2) DVT prophylaxis Status: Acute (3) ITP (idiopathic thrombocytopenic purpura) Status: Acute - Assessment and Plan (Free Text) Assessment: (1) Hemolytic anemia Assessment and Plan: transfuse 3 nits prbc as per heme/onc heme/onc consult port tomorrow rituxan wed monitor cbc further 1 unit prbc las tnight Status: Acute (2) DVT prophylaxis Assessment and Plan: scd and aehose ambulation no anticoag r/t low hgb Status: Acute (3) ITP (idiopathic thrombocytopenic purpura) Assessment and Plan: monitor, heme/onc steroids Status: Acute pending bed [place]
--- NOTE | 2018-08-14 09:09 | CP.PCM.PN ---
Subjective - Date & Time of Evaluation Date of Evaluation: 08/14/18 Time of Evaluation: 09:06 - Subjective Subjective: Pr is feeling much better. however evn after qanther unit of blood last night, her Hgb is still 6.3gms. Will give her the Rituxan she was due for at [place] while we await the availbility of the bed at [facility]. Objective - Vital Signs/Intake and Output Vital Signs (last 24 hours): Temp Pulse Resp BP Pulse Ox 97.8 F 81 20 98/66 L 98 08/14/18 08:14 08/14/18 08:14 08/14/18 08:14 08/14/18 08:14 08/14/18 08:14 Intake and Output: 08/14/18 08/14/18 06:59 18:59 Intake Total 274 Balance 274 - Medications Medications: Current Medications Acetaminophen (Tylenol 325mg Tab) 650 mg PO STAT STA Stop: 08/14/18 08:54 Famotidine (Pepcid) 20 mg PO Q12 [facility] Last Admin: 08/13/18 21:03 Dose: 20 mg Folic Acid (Folic Acid) 1 mg PO DAILY [facility] Last Admin: 08/13/18 10:48 Dose: 1 mg Gabapentin (Neurontin) 600 mg PO HS [facility] Last Admin: 08/13/18 22:41 Dose: 600 mg Hydrocortisone (Cortef) 20 mg PO QID [facility] Last Admin: 08/13/18 21:03 Dose: 20 mg Diphenhydramine HCl 25 mg/ (Sodium Chloride) 50.5 mls @ 101 mls/hr IVPB ONCE ONE Stop: 08/14/18 09:23 Dexamethasone 10 mg/ Sodium (Chloride) 51 mls @ 102 mls/hr IVPB ONCE ONE Stop: 08/14/18 09:23 Sodium Chloride (Sodium Chloride 0.9%) 500 mls @ 70 mls/hr IV .Q7H9M [facility] Rituximab 785 mg/ Sodium (Chloride) 328.5 mls @ 0 mls/hr IV ONCE ONE; Protocol Stop: 08/14/18 08:58 Ondansetron HCl 16 mg/ Sodium (Chloride) 58 mls @ 116 mls/hr IVPB ONCE ONE Stop: 08/14/18 09:23 Methimazole (Tapazole) 10 mg PO BID [facility] Last Admin: 08/13/18 17:57 Dose: 10 mg Naproxen (Naproxen) 500 mg PO DAILY [facility] Last Admin: 08/13/18 10:48 Dose: 500 mg - Labs Labs: 08/14/18 04:40 08/13/18 04:30 PT 12.3 Seconds (9.8-13.1) 08/11/18 20:50 INR 1.1 08/11/18 20:50 APTT 23.7 Seconds (25.6-37.1) L 08/11/18 20:50
[2018-08-14] MEDS: Naproxen 500 MG TAB PO SCH (11:00)
[2018-08-14] MEDS ORDERED: Dexamethasone 10 MG in Sodium Chloride 0.9% 50 ML IVPB ONE (11:00)
[2018-08-14] MEDS: Sodium Chloride 0.9% 500 ML IV SCH ×2 (11:10→18:07)
[2018-08-14] MEDS ORDERED: RITUXIMAB IV ONE (11:30)
[2018-08-14] MEDS ORDERED: SODIUM CHLORIDE 0.9% IV ONE (11:30)
[2018-08-15 00:14] VITALS: BP 95/62; PULSE 105; RESP 18; TEMP 97.9; O2SAT 97
--- NOTE | 2018-08-15 11:04 | CP.PCM.DIS ---
Provider - Provider Date of Admission: 08/11/18 21:12 Attending physician: Shelly Callahan MD Consults: 08/11/18 23:17 Hematology Oncology Consult Stat Comment: Consulting Provider: Scottie Queen Consulting Physician: Scottie Queen Reason for Consult: AIHA Time Spent in preparation of Discharge (in minutes): 15 Diagnosis - Discharge Diagnosis (1) Hemolytic anemia Status: Acute (2) DVT prophylaxis Status: Acute (3) ITP (idiopathic thrombocytopenic purpura) Status: Acute Hospital Course - Lab Results Lab Results: Most Recent Lab Values WBC 16.3 K/uL (4.8-10.8) H 08/14/18 04:40 RBC 1.96 Mil/uL (3.80-5.20) L 08/14/18 04:40 Hgb 6.3 g/dL (12.0-16.0) L* 08/14/18 04:40 Hct 18.1 % (34.0-47.0) L 08/14/18 04:40 MCV 92.6 fl (81.0-99.0) 08/14/18 04:40 MCH 32.0 pg (27.0-31.0) H 08/14/18 04:40 MCHC 34.6 g/dL (33.0-37.0) 08/14/18 04:40 RDW 14.5 % (11.5-14.5) 08/14/18 04:40 Plt Count 197 K/uL (130-400) 08/14/18 04:40 MPV 8.6 fl (7.2-11.7) 08/14/18 04:40 Neut % (Auto) 85.5 % (50.0-75.0) H 08/14/18 04:40 Lymph % (Auto) 9.5 % (20.0-40.0) L 08/14/18 04:40 [place] % (Auto) 4.5 % (0.0-10.0) 08/14/18 04:40 Eos % (Auto) 0.3 % (0.0-4.0) 08/14/18 04:40 Baso % (Auto) 0.2 % (0.0-2.0) 08/14/18 04:40 Neut # (Auto) 13.9 K/uL (1.8-7.0) H 08/14/18 04:40 Lymph # (Auto) 1.5 K/uL (1.0-4.3) 08/14/18 04:40 [place] # (Auto) 0.7 K/uL (0.0-0.8) 08/14/18 04:40 Eos # (Auto) 0.0 K/uL (0.0-0.7) 08/14/18 04:40 Baso # (Auto) 0.0 K/uL (0.0-0.2) 08/14/18 04:40 Neutrophils % (Manual) 77 % (42-75) H 08/13/18 04:30 Band Neutrophils % 1 % (0-2) 08/13/18 04:30 Lymphocytes % (Manual) 12 % (20-50) L 08/13/18 04:30 Reactive Lymphs % 1 % (0-0) H 08/13/18 04:30 Monocytes % (Manual) 8 % (0-10) 08/13/18 04:30 Myelocytes % 1 % (0-0) H 08/13/18 04:30 Toxic Granulation Present 08/13/18 04:30 Platelet Estimate Normal (NORMAL) 08/13/18 04:30 Polychromasia Slight 08/13/18 04:30 Hypochromasia (manual) Moderate 08/13/18 04:30 Tear Drop Cells Slight 08/13/18 04:30 Ovalocytes Slight 08/13/18 04:30 Acanthocytes (Spur) Slight 08/13/18 04:30 Retic Count 3.7 % (0.5-1.5) H D 08/14/18 04:40 PT 12.3 Seconds (9.8-13.1) 08/11/18 20:50 INR 1.1 08/11/18 20:50 APTT 23.7 Seconds (25.6-37.1) L 08/11/18 20:50 Sodium 138 mmol/l (132-148) 08/13/18 04:30 Potassium 4.6 MMOL/L (3.6-5.0) 08/13/18 04:30 Chloride 105 mmol/L (98-107) 08/13/18 04:30 Carbon Dioxide 26 mmol/L (22-30) 08/13/18 04:30 Anion Gap 12 (10-20) 08/13/18 04:30 BUN 20 mg/dl (7-17) H 08/13/18 04:30 Creatinine 0.6 mg/dl (0.7-1.2) L 08/13/18 04:30 Est GFR ( Amer) > 60 08/13/18 04:30 Est GFR (Non-Af Amer) > 60 08/13/18 04:30 Random Glucose 113 mg/dL (65-105) H 08/13/18 04:30 Lactic Acid 2.0 MMOL/L (0.7-2.1) 08/11/18 20:48 Calcium 8.5 mg/dL (8.4-10.2) 08/13/18 04:30 Magnesium 2.0 MG/DL (1.6-2.3) 08/11/18 20:50 Total Bilirubin 10.9 mg/dl (0.2-1.3) H 08/13/18 04:30 AST 62 U/L (14-36) H 08/13/18 04:30 ALT 148 U/L (9-52) H D 08/13/18 04:30 Alkaline Phosphatase 47 U/L (38-126) 08/13/18 04:30 Lactate Dehydrogenase 1166 U/L (313-618) H 08/11/18 20:50 Troponin I 0.0320 ng/mL (0.00-0.120) 08/11/18 20:50 Total Protein 6.4 G/DL (6.3-8.2) 08/13/18 04:30 Albumin 3.4 g/dL (3.5-5.0) L 08/13/18 04:30 Globulin 3.0 gm/dL (2.2-3.9) 08/13/18 04:30 Albumin/Globulin Ratio 1.1 (1.0-2.1) 08/13/18 04:30 Urine Color [place] (YELLOW) 08/13/18 20:34 Urine Clarity Clear (Clear) 08/13/18 20:34 Urine pH 6.0 (5.0-8.0) 08/13/18 20:34 Ur Specific [place] 1.011 (1.003-1.030) 08/13/18 20:34 Urine Protein Negative mg/dL (NEGATIVE) 08/13/18 20:34 Urine Glucose (UA) Neg mg/dL (NEGATIVE) 08/13/18 20:34 Urine Ketones Negative mg/dL (NEGATIVE) 08/13/18 20:34 Urine Blood Negative (NEGATIVE) 08/13/18 20:34 Urine Nitrate Negative (NEGATIVE) 08/13/18 20:34 Urine Bilirubin Negative (NEGATIVE) 08/13/18 20:34 Urine Urobilinogen 4.0 mg/dL (0.2-1.0) H 08/13/18 20:34 Ur Leukocyte Esterase Neg Mil[place]/uL (Negative) 08/13/18 20:34 Urine RBC (Auto) 1 /hpf (0-3) 08/13/18 20:34 Urine Microscopic WBC 1 /hpf (0-5) 08/13/18 20:34 Ur Squamous Epith Cells 3 /hpf (0-5) 08/13/18 20:34 Blood Type A POSITIVE 08/11/18 20:49 Antibody Screen Positive 08/11/18 20:49 Antibody Identification Anti S 08/11/18 20:49 PEDRITO, Poly Interpret Positive (NEGATIVE) H 08/11/18 20:49 Crossmatch See Detail 08/11/18 20:49 BBK History Checked Patient has bt 08/11/18 20:49 - Hospital Course Hospital Course: transfusion of 4 total units heme/onc xfer to [facility] [place] Discharge Exam - Head Exam Head Exam: ATRAUMATIC, NORMAL INSPECTION, NORMOCEPHALIC Discharge Plan - Follow Up Plan Condition: FAIR Disposition: Trans to Other Acute Care Hosp Additional Instructions: final dx-severe symptomatic hemolytic anemia. xfer to [facility] [place] f/u upon dc
== END 2018-08-15 00:57 | disposition short-term general hospital (02) | DRG 897 ==
LOC: H.ER 20:02 → H.ERHOLD 21:12 → H.TEL 23:23
PROVIDERS: ADMIT Family Medicine; ATTEND Family Medicine
PROC: 30233N1 Transfusion of Nonautologous Red Blood Cells into Peripheral Vein, Percutaneous Approach (ICD-10-PCS; principal; 2018-08-12)
DX: D59.1 Other autoimmune hemolytic anemias (principal); D69.3 Immune thrombocytopenic purpura; E05.90 Thyrotoxicosis, unspecified without thyrotoxic crisis or storm; Z90.81 Acquired absence of spleen; Z88.7 Allergy status to serum and vaccine; Z91.041 Radiographic dye allergy status